=== PATIENT | female | born 1940 | race Caucasian/White ===

== ENCOUNTER → 2016-10-11 | Outpatient (CLI) | payer MEDICARE ==
--- NOTE | 2016-10-11 16:59 | CONS ---
DATE OF CONSULTATION: 10/11/2016 This patient is a 76-year-old lady who has been evaluated in the sleep center for possible obstructive sleep apnea/hypopnea syndrome. HISTORY OF PRESENT ILLNESS/SLEEP-WAKE EVALUATION: Patient had a sleep study done in a different state about 20 years ago. At that time the results were borderline. She was not recommended to use CPAP equipment at that time. At present her sleep schedule is from 10 or 11 p.m. until 7 or 8 a.m. Sometimes she has problems falling asleep. Very seldom does she watch TV in her bedroom. She usually sleeps on the side position with snoring, awakenings from sleep with dry mouth and sweating and nocturia up to 4 times, with 4 episodes of nocturia. In the morning the patient wakes up tired and has problems with memory, irritability, claustrophobia. [place] Sleepiness Scale has increased to 10. Past medical history is positive for: 1. Hypertension. 2. Hypothyroidism. 3. GI bleed with iron deficiency anemia secondary to bleeding. 4. Diabetes mellitus. 5. Allergies. 6. Asthma. 7. Left breast carcinoma. PAST SURGICAL HISTORY: 1. Appendectomy. 2. Cholecystectomy. 3. Partial hysterectomy. 4. Right knee meniscal surgery. 5. Bilateral cataract surgery. 6. Left breast lumpectomy following radiation and chemotherapy. MEDICATIONS: 1. Losartan. 2. Sertraline. 3. Omeprazole. 4. Levothyroxine. 5. Iron supplement. 6. B12. 7. Cartia. 8. Metformin. 9. Troglitazone. 10. Oxybutynin. 11. Nitrostat. 12. Vitamins. 13. Montelukast. SOCIAL HISTORY: Positive for smoking in the past; quit in 1997. Alcohol consumption very seldom. FAMILY HISTORY: Hypertension, hyperlipidemia, asthma, sinus headaches, bronchitis, emphysema, snoring, cancer, acid reflux, ulcers, diabetes. REVIEW OF SYSTEMS: Multiple awakenings from sleep. Sleepiness during the day. Patient takes naps every day around 2 p.m. No fevers. No double vision. No recent chest pain. No shortness of breath. No abdominal pain. No bleeding episodes. No blood in urine. No seizure episodes. PHYSICAL EXAMINATION: GENERAL: A pleasant 76-year-old lady without distress. VITAL SIGNS: BP 116/82, HR 66, RR 16. Height 5 feet 3 inches. Weight 214. BMI 37.9. Neck 15 inches in circumference. Temperature 97.8. Oxygen saturation at room air 96%. HEENT: PERRLA, EOMI. Evaluation of oropharynx showed tongue protrudes midline; extremely low position of soft palate. Mallampati IV. Conjunctivae slightly pale. NECK: Supple. No JVD. Thyroid is not palpable. LUNGS: Clear to percussion and to auscultation. Good air exchange. No wheezing or rhonchi. HEART: S1, S2 regular. No murmurs, gallops or rubs. ABDOMEN: Obese. EXTREMITIES: No clubbing or cyanosis. LOCKSMITH HELPER: Awake, alert, and oriented x3. Cranial nerves 2 to 7 intact. There is no fasciculation or atrophy noted. No focal deficits observed. IMPRESSION: 1. Snoring, multiple awakenings from sleep with nocturia, extremely low position of soft palate, Mallampati IV, obesity, sleepiness; obstructive sleep apnea/hypopnea syndrome. 2. Obesity; body mass index 37.9. 3. Hypertension. 4. Depression. 5. Hypothyroidism. 6. Acid reflux. 7. History of gastrointestinal bleed. 8. History of iron deficiency anemia secondary to bleed, status post several blood transfusions. 9. Diabetes mellitus. 10. Allergies. 11. History of asthma. 12. History of episodes of cardiac arrhythmia several times with increasing heart rate. Patient is not aware of exactly what type of cardiac arrhythmia she has. 13. History of left breast carcinoma, status post lumpectomy, radiation therapy and chemotherapy. 14. Status post bilateral cataract surgery. 15. Status post appendectomy. 16. Status post cholecystectomy. 17. Status post partial hysterectomy. 18. Status post right knee surgery for meniscal problems. PLAN: 1. Polysomnography for evaluation of patient's breathing during sleep. 2. CPAP/BiPAP titration if sleep study confirms obstructive sleep apnea-hypopnea syndrome. 3. Preferable position during sleep on the side. 4. No driving if patient feels any sleepiness. Patient is aware of civil and criminal liability for unsafe driving. 5. I will see patient for follow-up visit to explain results of the testing and following plan. Thank you very much for referring this patient for consultation. Sincerely, Eduardo Duong MD, PhD, FAASM. Diplomat of [place] [employer], Sleep Medicine Board by [place] [employer] [place] [employer] [facility] [place]
== END | disposition home or self-care (01) ==
LOC: SLEEP 10:27
PROVIDERS: ATTEND Internal Medicine
DX: G47.33 Obstructive sleep apnea (adult) (pediatric) (principal); Z79.899 Other long term (current) drug therapy; Z87.891 Personal history of nicotine dependence; E66.9 Obesity, unspecified; Z68.37 Body mass index [BMI] 37.0-37.9, adult; I10 Essential (primary) hypertension; F32.9 Major depressive disorder, single episode, unspecified; E03.9 Hypothyroidism, unspecified; K21.9 Gastro-esophageal reflux disease without esophagitis; E11.9 Type 2 diabetes mellitus without complications; Z91.09 Other allergy status, other than to drugs and biological substances; I49.9 Cardiac arrhythmia, unspecified; J45.909 Unspecified asthma, uncomplicated; D50.0 Iron deficiency anemia secondary to blood loss (chronic); Z87.898 Personal history of other specified conditions; Z85.3 Personal history of malignant neoplasm of breast; Z98.890 Other specified postprocedural states
CPT/HCPCS: 99211

== ENCOUNTER 2016-10-23 22:27 | Inpatient (IN) | payer MEDICARE ==
--- NOTE | 2016-10-24 00:02 | ED ---
General Adult HPI - General Source: patient, RN notes reviewed Mode of arrival: ambulatory Limitations: no limitations <Judah Mckee - Last Filed: 10/24/16 00:52> <Everardo Loco - Last Filed: 11/01/16 09:01> - General Chief complaint: Recheck/Abnormal Lab/Rx Stated complaint: Low Hemoglobin Time Seen by Provider: 10/23/16 23:12 - History of Present Illness Initial comments: 76-year-old female presents emergency Department chief complaint of low hemoglobin. Patient states she had labwork performed by her her doctor today who told her to go to the emergency Department because her hemoglobin was low. Patient states she's had a history of this in which she required transfusion section. 2 a GI bleed. Patient has admitted to the [facility] at this time. Patient also by sick with cold-like symptoms including sinus congestion, cough and runny nose. Patient denies fever, chills. Patient states she saw Dr. Gomez last time she had GI bleed in which she had cauterization of the blood vessels. (Judah Mckee) - Related Data Home Medications Medication Instructions Recorded Confirmed Cyanocobalamin [Vitamin B-12] 1,000 mcg PO DAILY 09/06/15 10/23/16 Diltiazem Cd [Cardizem CD] 120 mg PO DAILY 09/06/15 10/23/16 Losartan Potassium [Cozaar] 75 mg PO DAILY 09/06/15 10/23/16 Nitroglycerin Sl Tabs [Nitrostat] 0.4 mg SUBLINGUAL Q5M PRN 09/06/15 10/23/16 Sertraline [Zoloft] 100 mg PO DAILY 09/06/15 10/23/16 Vit A,C & E/Lutein/Minerals 1 tab PO DAILY 09/06/15 10/23/16 [Ocuvite with Lutein Tablet] metFORMIN HCL 1,000 mg PO BID 09/06/15 10/23/16 Levothyroxine Sodium [Synthroid] 200 mcg PO DAILY 10/23/16 10/23/16 Montelukast [Singulair] 10 mg PO DAILY 10/23/16 10/23/16 Omeprazole 40 mg PO HS 10/23/16 10/23/16 Oxybutynin Chloride [Oxybutynin 10 mg PO DAILY 10/23/16 10/23/16 Chloride ER] Pioglitazone HCl [Actos] 30 mg PO DAILY 10/23/16 10/23/16 Previous Rx's Medication Instructions Recorded Ferrous Sulfate [Iron (65 MG 325 mg PO BID-W/MEALS tab 10/24/16 Elemental)] Allergies Allergy/AdvReac Type Severity Reaction Status Date / Time Penicillins Allergy Unknown Verified 10/23/16 23:24 Sulfa (Sulfonamide Allergy Rash/Hives Verified 10/23/16 23:24 Antibiotics) Review of Systems ROS Other: All systems not noted in ROS Statement are negative. <Judah Mckee - Last Filed: 10/24/16 00:52> ROS Other: All systems not noted in ROS Statement are negative. <Everardo Loco - Last Filed: 11/01/16 09:01> ROS Statement: Those systems with pertinent positive or pertinent negative responses have been documented in the HPI. Past Medical History Past Medical History: Atrial Fibrillation, Atrial Flutter, Asthma, Cancer, Diabetes Mellitus, GERD/Reflux, Hyperlipidemia, Hypertension, Thyroid Disorder Additional Past Medical History / Comment(s): ulcer, anemia, hx breast cancer History of Any Multi-Drug Resistant Organisms: None Reported Past Surgical History: Appendectomy, Breast Surgery, Cholecystectomy, Orthopedic Surgery, Tonsillectomy Additional Past Surgical History / Comment(s): Left Breast Lumpectomy and lymph nodes, rt knee arthroscopy Past Anesthesia/Blood Transfusion Reactions: No Reported Reaction Past Psychological History: Anxiety, Depression Smoking Status: Former smoker Past Alcohol Use History: None Reported Additional Past Alcohol Use History / Comment(s): quit smoking 1997, smoked for 25 yrs, 1 PPD Past Drug Use History: None Reported - Past Family History Mother Family Medical History: AFIB, Cancer Additional Family Medical History / Comment(s): Atrial Fibrillation <Judah Mckee - Last Filed: 10/24/16 00:52> - Past Family History Mother Family Medical History: AFIB, Cancer, Renal Disease Additional Family Medical History / Comment(s): Atrial Fibrillation and brain cancer. Father Family Medical History: No Reported History <Everardo Loco - Last Filed: 11/01/16 09:01> General Exam Limitations: no limitations General appearance: alert, in no apparent distress Head exam: Present: atraumatic, normocephalic, normal inspection Neck exam: Present: normal inspection, full ROM. Absent: tenderness, meningismus, lymphadenopathy Respiratory exam: Present: normal lung sounds bilaterally. Absent: respiratory distress, wheezes, rales, rhonchi, stridor Cardiovascular Exam: Present: regular rate, normal rhythm, normal heart sounds. Absent: systolic murmur, diastolic murmur, rubs, gallop, clicks GI/Abdominal exam: Present: soft, normal bowel sounds. Absent: distended, tenderness, guarding, rebound, rigid Back exam: Absent: CVA tenderness (R), CVA tenderness (L) Neurological exam: Present: alert, oriented X3, CN II-XII intact Skin exam: Present: warm, dry, intact, normal color. Absent: rash <Judah Mckee - Last Filed: 10/24/16 00:52> Medical Decision Making - Lab Data Result diagrams: 10/23/16 23:42 10/23/16 23:42 <Judah Mckee - Last Filed: 10/24/16 00:52> - Lab Data Result diagrams: 10/24/16 07:50 10/23/16 23:42 <Everardo Loco - Last Filed: 11/01/16 09:01> - Medical Decision Making I saw this patient in conjunction with the physician exceptional children teacher assistant. I performed independent history and physical exam. Agree with case management. (Everardo Loco) - Lab Data Lab Results 10/23/16 10/23/16 10/23/16 Range/Units 23:42 23:42 23:42 WBC 5.9 (3.8-10.6) k/uL RBC 3.12 L (3.80-5.40) m/uL Hgb 7.0 L* (11.4-16.0) gm/dL Hct 23.6 L (34.0-46.0) % MCV 75.5 L (80.0-100.0) fL MCH 22.6 L (25.0-35.0) pg MCHC 29.9 L (31.0-37.0) g/dL RDW 15.0 (11.5-15.5) % Plt Count 245 (150-450) k/uL Neutrophils % 65 % Lymphocytes % 19 % Monocytes % 8 % Eosinophils % 3 % Basophils % 1 % Neutrophils # 3.8 (1.3-7.7) k/uL Lymphocytes # 1.1 (1.0-4.8) k/uL Monocytes # 0.5 (0-1.0) k/uL Eosinophils # 0.2 (0-0.7) k/uL Basophils # 0.0 (0-0.2) k/uL Hypochromasia Marked Poikilocytosis Moderate Microcytosis Slight PT 10.4 (9.0-12.0) sec INR 1.0 (<1.1) APTT 22.7 (22.0-30.0) sec Sodium 137 (137-145) mmol/L Potassium 4.7 (3.5-5.1) mmol/L Chloride 101 (98-107) mmol/L Carbon Dioxide 22 (22-30) mmol/L Anion Gap 14 mmol/L BUN 19 H (7-17) mg/dL Creatinine 0.80 (0.52-1.04) mg/dL Est GFR (MDRD) Af Amer >60 (>60 ml/min/1.73 sqM) Est GFR (MDRD) Non-Af >60 (>60 ml/min/1.73 sqM) Glucose 168 H (74-99) mg/dL Calcium 9.3 (8.4-10.2) mg/dL Stool Occult Blood (Negative) Blood Type Blood Type Recheck Antibody Screen Crossmatch Spec Expiration Date 10/23/16 10/24/16 Range/Units 23:52 00:50 WBC (3.8-10.6) k/uL RBC (3.80-5.40) m/uL Hgb (11.4-16.0) gm/dL Hct (34.0-46.0) % MCV (80.0-100.0) fL MCH (25.0-35.0) pg MCHC (31.0-37.0) g/dL RDW (11.5-15.5) % Plt Count (150-450) k/uL Neutrophils % % Lymphocytes % % Monocytes % % Eosinophils % % Basophils % % Neutrophils # (1.3-7.7) k/uL Lymphocytes # (1.0-4.8) k/uL Monocytes # (0-1.0) k/uL Eosinophils # (0-0.7) k/uL Basophils # (0-0.2) k/uL Hypochromasia Poikilocytosis Microcytosis PT (9.0-12.0) sec INR (<1.1) APTT (22.0-30.0) sec Sodium (137-145) mmol/L Potassium (3.5-5.1) mmol/L Chloride (98-107) mmol/L Carbon Dioxide (22-30) mmol/L Anion Gap mmol/L BUN (7-17) mg/dL Creatinine (0.52-1.04) mg/dL Est GFR (MDRD) Af Amer (>60 ml/min/1.73 sqM) Est GFR (MDRD) Non-Af (>60 ml/min/1.73 sqM) Glucose (74-99) mg/dL Calcium (8.4-10.2) mg/dL Stool Occult Blood Negative (Negative) Blood Type O Negative Blood Type Recheck No Antibody Screen NEGATIVE Crossmatch See Detail Spec Expiration Date 10/26/2016 - 1117 Disposition <Judah Mckee - Last Filed: 10/24/16 00:52> <Everardo Loco - Last Filed: 11/01/16 09:01> Clinical Impression: Anemia, GI bleed Disposition: ADMITTED IP TO THIS [facility] Condition: Stable
[2016-10-24 00:09] LABS: Partial Thromboplastin Time 22.7 sec (22.0-30.0); Prothrombin Time 10.4 sec (9.0-12.0)
[2016-10-24 00:10] LABS: Basophils % (A) 1 %; CH 22.8; CHCM 30.2; Eosinophils # (A) 0.2 k/uL (0-0.7); Eosinophils % (A) 3 %; HCT 23.6 % (34.0-46.0); HDW 4.39; Hypochromasia Marked; Luc # (Auto) 0.23; Luc % (Auto) 4; Lymphocytes # (A) 1.1 k/uL (1.0-4.8); Lymphocytes % (A) 19 %; MCH 22.6 pg (25.0-35.0); MCHC 29.9 g/dL (31.0-37.0); MCV 75.5 fL (80.0-100.0); Mean Platelet Volume 7.3; Microcytosis Slight; Monocytes # (A) 0.5 k/uL (0-1.0); Monocytes % (A) 8 %; Neutrophils # (A) 3.8 k/uL (1.3-7.7); Neutrophils % (A) 65 %; Poikilocytosis Moderate; RBC 3.12 m/uL (3.80-5.40); WBC 5.9 k/uL (3.8-10.6); WBC (Perox) 5.92
[2016-10-24 00:11] LABS: Anion Gap 14 mmol/L; Blood Urea Nitrogen 19 mg/dL (7-17); Calcium 9.3 mg/dL (8.4-10.2); Carbon Dioxide 22 mmol/L (22-30); Chloride 101 mmol/L (98-107); Glucose 168 mg/dL (74-99); Non-African American GFR(MDRD) >60 (>60 ml/min/1.73 sqM); Potassium 4.7 mmol/L (3.5-5.1); Sodium 137 mmol/L (137-145)
[2016-10-24] MEDS ORDERED: NALOXONE 0.4 MG/ML 1 ML VIAL IV PRN (00:53)
[2016-10-24] MEDS ORDERED: ONDANSETRON 4 MG/2 ML VIAL IVP PRN (00:53)
[2016-10-24] MEDS ORDERED: LORazepam 2 MG/ML SYRINGE IV PRN (00:53)
[2016-10-24] MEDS ORDERED: PANTOPRAZOLE 40 MG/10 ML VIAL IVP ONE (00:55)
[2016-10-24] MEDS: SODIUM CHLORIDE 0.9% 1,000 ML IV SCH ×2 (01:42→16:09)
[2016-10-24 08:10] LABS: Anisocytosis Slight; Basophils % (A) 1 %; CH 23.9; CHCM 29.3; Eosinophils # (A) 0.1 k/uL (0-0.7); Eosinophils % (A) 3 %; HCT 25.5 % (34.0-46.0); HDW 4.27; HGB 7.6 gm/dL (11.4-16.0); Hypochromasia Marked; Luc # (Auto) 0.16; Luc % (Auto) 4; Lymphocytes # (A) 0.8 k/uL (1.0-4.8); Lymphocytes % (A) 19 %; MCH 24.3 pg (25.0-35.0); MCHC 29.8 g/dL (31.0-37.0); Monocytes # (A) 0.3 k/uL (0-1.0); Monocytes % (A) 7 %; Neutrophils % (A) 67 %; Poikilocytosis Moderate; RBC 3.13 m/uL (3.80-5.40); RDW 17.3 % (11.5-15.5); WBC 4.5 k/uL (3.8-10.6)
[2016-10-24 08:12] LABS: MCV 81.4 fL (80.0-100.0)
[2016-10-24] MEDS ORDERED: PANTOPRAZOLE 40 MG/10 ML VIAL IVP SCH (09:00)
[2016-10-24] MEDS ORDERED: FERROUS SULFATE 325 MG TAB PO SCH (10:30)
--- NOTE | 2016-10-24 10:32 | P.CONS ---
History of Present Illness - Reason for Consult Consult date: 10/24/16 anemia Requesting physician: Kenny Garza - History of Present Illness 76-year-old female patient Dr. Ríos with a past history of iron deficiency anemia, GI bleed secondary to peptic ulcer disease and small bowel AVM, asthma, atrial fibrillation, breast carcinoma, hyperlipidemia, hypertension, hypothyroidism, anxiety, depression. Patient was admitted with symptomatic anemia with shortness of breath. She was evaluated by her PCP for cold-like symptoms CBC indicated low hemoglobin. Admission 11 7.0. MCV 75. Platelet 245. BUN 19. Creatinine 0.8. She received 1 unit of blood and current hemoglobin is 7.6. Hemoccult stool negative. Denies epigastric/ abdominal pain. Denies overt symptoms of hematemesis, hematochezia, or melena. No fever or chills. She was taking iron supplementation twice daily but changed to daily dosing about 3 months ago. Hemoglobin December 2015 was 12.7. She has had extensive endoscopic workup for anemia in the past. She underwent EGD evaluation in September 2015 without evidence of peptic ulcer disease or bleeding. She had EGD colonoscopy in October 2013 with findings of small duodenal ulceration followed by repeat upper and lower endoscopy in December [address] Boateng with gastritis and diverticulosis. Patient reports that she saw Dr. Gomez within the last few years with repeat EGD with no evidence of peptic ulcer disease followed by small bowel capsule study that indicated a small bowel bleed followed by enteroscopy and cautery of small bowel AVM blood vessel. Small bowel capsule study and enteroscopy report is not available at time of this dictation. Denies weight loss or usage of aspirin or NSAIDs. Review of Systems Constitutional: Denies fever, chills, sweats, weight gain, or loss. HEENT: Negative for migraines, blurred vision or loss, earaches, drainage, tinnitus, oral mucosal lesions, dysphagia, or odynophagia. CARDIAC: Atrial flutter. Hyperlipidemia. Hypertension.. RESPIRATORY: Asthma. Negative for shortness of breath, hemoptysis, cough, or sputum production. GI: See HPI for pertinent findings. : Negative for hematuria, urgency, frequency, polyuria, or dysuria. GYNc: Breast carcinoma. Negative vaginal discharge. MUSCULOSKELETAL: Negative for muscle aches, swelling, arthritis, and arthralgias. NEUROLOGIC: Negative for stroke or TIA. ENDOCRINE: Hypothyroidism. Diabetes mellitus. SKIN: Negative for rash or itching. PSYCHIATRIC: Negative history for depression and anxiety All systems: negative (See HPI) Past Medical History Past Medical History: Atrial Fibrillation, Atrial Flutter, Asthma, Cancer, Diabetes Mellitus, GERD/Reflux, GI Bleed, Hyperlipidemia, Hypertension, Thyroid Disorder Additional Past Medical History / Comment(s): Current URI-was to start ABX but has not yet, lower GI bleeds, blood loss anemia, iron deficiency anemia, gastric ulcer, diverticulosis, NIDDM type II, hx L breast cancer with surgery/ chemo/radiation, hypothryroid. History of Any Multi-Drug Resistant Organisms: None Reported Past Surgical History: Appendectomy, Breast Surgery, Cholecystectomy, Orthopedic Surgery, Tonsillectomy Additional Past Surgical History / Comment(s): Left Breast Lumpectomy and lymph nodes, rt knee arthroscopy, EGDs/colonoscopies, capsule endoscopy, cauterization small bleeds in intestine per pt, bilateral cataract removals with lens implants. Past Anesthesia/Blood Transfusion Reactions: No Reported Reaction Additional Past Anesthesia/Blood Transfusion Reaction / Comm: Pt has received blood without reaction. She has clausterphobia. Past Psychological History: Anxiety, Depression Additional Psychological History / Comment(s): Pt states her depression has improved-she suffered depression for awhile after her mother's last year. She resides with a friend. There is a dog in the home. She uses no assistive device. She drives some and her friend also drives her to appts. Smoking Status: Former smoker Past Alcohol Use History: Occasional Additional Past Alcohol Use History / Comment(s): Pt started smoking in 1957 and quit in 1997. Past Drug Use History: None Reported - Past Family History Father Family Medical History: No Reported History Mother Family Medical History: AFIB, Cancer, Renal Disease Additional Family Medical History / Comment(s): Atrial Fibrillation and brain cancer. Medications and Allergies Home Medications Medication Instructions Recorded Confirmed Type Cyanocobalamin [Vitamin B-12] 1,000 mcg PO DAILY 09/06/15 10/23/16 History Diltiazem Cd [Cardizem Cd] 120 mg PO DAILY 09/06/15 10/23/16 History Ferrous Sulfate [Feosol] 325 mg PO DAILY 09/06/15 10/23/16 History Losartan Potassium [Cozaar] 75 mg PO DAILY 09/06/15 10/23/16 History Nitroglycerin Sl Tabs [Nitrostat] 0.4 mg SUBLINGUAL Q5M PRN 09/06/15 10/23/16 History Sertraline [Zoloft] 100 mg PO DAILY 09/06/15 10/23/16 History Vit A,C & E/Lutein/Minerals 1 tab PO DAILY 09/06/15 10/23/16 History [Ocuvite with Lutein Tablet] metFORMIN HCL 1,000 mg PO BID 09/06/15 10/23/16 History Levothyroxine Sodium [Synthroid] 200 mcg PO DAILY 10/23/16 10/23/16 History Montelukast [Singulair] 10 mg PO DAILY 10/23/16 10/23/16 History Omeprazole 40 mg PO HS 10/23/16 10/23/16 History Oxybutynin Chloride [Oxybutynin 10 mg PO DAILY 10/23/16 10/23/16 History Chloride ER] Pioglitazone HCl [Actos] 30 mg PO DAILY 10/23/16 10/23/16 History Allergies Allergy/AdvReac Type Severity Reaction Status Date / Time Penicillins Allergy Unknown Verified 10/23/16 23:24 Sulfa (Sulfonamide Allergy Rash/Hives Verified 10/23/16 23:24 Antibiotics) Physical Exam Vitals: Vital Signs Temp Pulse Resp BP Pulse Ox 10/24/16 08:47 98.2 F 61 14 141/63 97 10/24/16 07:15 98.2 F 61 14 141/63 97 10/24/16 04:35 97.1 F L 64 14 139/63 97 10/24/16 04:34 97.1 F L 64 14 139/63 14 L 10/24/16 04:17 97 F L 62 14 148/67 94 L 10/24/16 03:47 97.6 F 68 14 130/68 94 L 10/24/16 03:37 97.6 F 61 14 124/58 95 10/24/16 02:16 65 16 128/62 96 Intake and Output 10/23/16 10/24/16 10/24/16 22:59 06:59 14:59 Intake Total 310 Balance 310 Intake: Blood Product 310 Rc As-1 Unit 310 [id number] General appearance: The patient is alert, oriented, in no acute distress. HET: Head is normocephalic and atraumatic. Pupils are equal and reactive. Oropharynx is clear without lesions. Neck: Supple without lymphadenopathy. Trachea midline. Heart: S1 S2. Regular rate and rhythm. Lungs: No crackles or wheezes are heard. Abdomen: Soft, nontender, nondistended with bowel sounds. No peritoneal signs. No palpable organomegaly or masses. Extremities: Normal skin color and turgor. No cyanosis, rash, ulceration, clubbing, or edema. Radial and pedal pulses are 2/4 bilaterally. Neurological: No focal deficits. Strength and sensation are grossly intact. Results CBC & Chem 7: 10/24/16 07:50 10/23/16 23:42 Labs: Abnormal Lab Results - Last 24 Hours (Table) 10/24/16 Range/Units 07:50 RBC 3.13 L (3.80-5.40) m/uL Hgb 7.6 L (11.4-16.0) gm/dL Hct 25.5 L (34.0-46.0) % MCH 24.3 L (25.0-35.0) pg MCHC 29.8 L (31.0-37.0) g/dL RDW 17.3 H (11.5-15.5) % Lymphocytes # 0.8 L (1.0-4.8) k/uL Assessment and Plan (1) Iron (Fe) deficiency anemia Narrative/Plan: 76-year-old female with a history of chronic iron deficiency anemia followed closely by hematology with extensive endoscopic workup in the past including multiple EGDs colonoscopy and small bowel capsule endoscopy. She has a history of peptic ulcer disease Y 14 and reported small bowel AVM bleeding that required cautery. Considering patient is not actively bleeding and her Hemoccult testing is negative would advise not repeating endoscopic workup at this time. Iron supplementation was decreased from twice daily dosing to once daily over the last 3-6 months. Status: Chronic Plan: 1. Ferrous sulfate 325 mg twice daily. 2. Follow-up with hematology in 1 week for reevaluation will defer to their service if repeat endoscopy is needed for anemia management. Follow up with GI office as needed. 3. Case was discussed with Dr. Garza. Discharge per medicine. Thank you for this kind referral and the opportunity to participate in the care of your patient. This consultation was discussed with Dr. Valentine. The impression and plan of care have been directed as dictated.
[2016-10-24 10:53] VITALS: RESP 16
[2016-10-24 12:06] LABS: Glucose,Whole Blood 157 mg/dL (75-99)
[2016-10-24 12:26] LABS: % Iron Saturation 4.5 % (20-50)
[2016-10-24 14:30] VITALS: TEMP 97.8
[2016-10-24] MEDS ORDERED: FUROSEMIDE 10 MG/ML 2 ML VIAL IV ONE (15:00)
[2016-10-24 16:38] VITALS: BP 120/65; PULSE 65
--- NOTE | 2016-10-24 18:23 | HP ---
DATE OF ADMISSION: 10/24/2016 CHIEF COMPLAINT: Tiredness, weakness, shortness of breath and anemia. HISTORY OF PRESENT ILLNESS: This 76-year-old woman with a past medical history of multiple medical problems, including atrial fibrillation, atrial flutter, asthma, diabetes mellitus, type 2, GERD, history of GI bleed, hypertension, hyperlipidemia, history of appendectomy, history of breast surgery, history of anxiety, depression, being followed by Dr. Downey in the outpatient setting, has a long-standing history of anemia. The patient had extensive workup, endoscopies, and the patient was noted to have small duodenal ulceration, but subsequently the patient apparently had upper enteroscopy and cauterization of a small bowel AVM. Currently the patient is complaining of tiredness and weakness and the patient's hemoglobin was noted to be 7. The patient had one unit of transfusion and was admitted for further evaluation and treatment. There is no history of any fever, rigor, or chills. No history of any headache, loss of consciousness, seizures. PAST MEDICAL HISTORY: 1. History of atrial fibrillation/flutter. 2. History of asthma. 3. History of diabetes mellitus. 4. History of GERD. 5. GI bleed. 6. Hypertension. 7. Hyperlipidemia. 8. Hypothyroidism. 9. History of cholecystectomy. 10. History of DJD. 11. History of anxiety, depression. Medications prior to admission include: 1. Metformin 1000 mg p.o. b.i.d. 2. Ocuvite 1 tablet p.o. daily. 3. Zoloft 100 mg p.o. daily. 4. Actos 30 mg p.o. daily. 5. Oxybutynin 10 mg p.o. daily. 6. Omeprazole 40 mg at bedtime. 7. Nitrostat 0.4 sublingually p.r.n. 8. Singulair 10 mg p.o. daily. 9. Cozaar 75 mg p.o. daily. 10. Synthroid 200 mcg p.o. daily. 11. Cardizem CD 120 mg p.o. daily. 12. Vitamin B12 1000 mg p.o. daily. 13. Iron sulfate 65 mg p.o. daily. ALLERGIES: PENICILLIN and SULFA. FAMILY HISTORY: History of atrial fibrillation, cancer, renal disease, brain cancer in the family. SOCIAL HISTORY: Previous history of smoking. Occasional alcohol intake. REVIEW OF SYSTEMS: ENT: No diminished hearing. No diminished vision. CARDIOVASCULAR: As mentioned earlier. RESPIRATORY SYSTEM: As mentioned earlier. GI: No nausea, vomiting. : No dysuria. NERVOUS SYSTEM: No numbness, weakness. ALLERGY/IMMUNOLOGY: No asthma or hayfever. MUSCULOSKELETAL: As mentioned earlier. HEMATOLOGY/ONCOLOGY: As mentioned earlier. ENDOCRINE: Diabetes, hypothyroidism. CONSTITUTIONAL: As mentioned earlier. DERMATOLOGY: Negative. RHEUMATOLOGY: Negative. PSYCHIATRY: As mentioned earlier. PHYSICAL EXAMINATION: Patient is alert and oriented x3. Pulse 66, blood pressure 130/59, respiratory rate 16, temperature 97.6, pulse ox 98% on room air. HEENT: Conjunctivae pale. Oral mucosa is pale. NECK: No jugular venous distention. No carotid bruit. No lymph node enlargement. CARDIOVASCULAR SYSTEM: S1, S2 muffled. No S3. No S4. RESPIRATORY SYSTEM: Breath sounds diminished at the bases. Bilateral scattered rhonchi and a few crackles. ABDOMEN: Soft, obese, nontender. No mass palpable. No hepatosplenomegaly. LEGS: No edema. No swelling. NERVOUS SYSTEM: Higher functions as mentioned earlier. Moves all 4 limbs. No focal motor or sensory deficit. LYMPHATICS: No lymph node palpable in neck, axillae or groin. SKIN: No ulcer, rash, bleeding. LABS: WBC 5.9, hemoglobin 7, MCV 75.6. Other labs are noted. ASSESSMENT 1. Acute blood loss anemia with acute gastrointestinal bleed possibly. 2. 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 3. Atrial fibrillation. 4. History of atrial flutter. 5. History of asthma. 6. History of diabetes mellitus, type 2. 7. History of gastroesophageal reflux disease. 8. History of gastrointestinal bleed. 9. History of hypertension. 10. History of hyperlipidemia. 11. History of iron deficiency anemia. 12. History of gastric duodenal ulcer. 13. History of diverticulosis. 14. History of diabetes mellitus, type 2. 15. History of left breast cancer. 16. History of degenerative joint disease. 17. History of cholecystectomy. 18. Anxiety, depression not otherwise specified. 19. Remote history nicotine dependence. 20. Obesity with body mass index of 36.6. 21. FULL CODE. RECOMMENDATIONS AND DISCUSSION: In this 76-year-old woman who presented with multiple complex medical issues, we will monitor the patient closely, continue the current medication, continue with symptomatic treatment. I would recommend one more unit of transfusion because of symptomatic anemia Lasix. Continue the rest of the medications. Discussed with Gastroenterology at length (Zohra). The dose of iron is also being increased. Also recommend close followup with Dr. Downey and Dr. Ríos in the outpatient setting. Will treat the patient empirically medically at this time. Continue to monitor. Prognosis guarded. Discussed with the patient, who understands and agrees. Home medications will be continued. Hold off anticoagulants and any antiplatelet agents for now. A copy of this dictation is being forwarded to Dr. Downey, who is the primary physician. ESA
--- NOTE | 2016-10-25 10:28 | DS ---
DATE OF ADMISSION: 10/24/2016 DATE OF DISCHARGE: 10/24/2016 FINAL DIAGNOSES: 1. Acute on chronic gastrointestinal bleed with acute blood loss anemia, status post transfusion. 2. History of small bowel AVM and cauterization. 3. History of atrial fibrillation flutter. 4. History of asthma. 6. History of breast cancer left. 7. History of diabetes mellitus type 2. 8. History of gastroesophageal reflux disease. 9. History of gastrointestinal bleed. 10. Hypertension. 11. Hyperlipidemia. 12. History of blood loss anemia. 13. History of iron deficiency anemia. 14. History of gastric duodenal ulcer. 15. History of diverticulosis. 16. History of appendectomy. 17. History of degenerative joint disease. 18. History of anxiety, depression. 19. Remote history of nicotine dependence. 20. Obesity with a body mass index of 36.6. 21. FULL CODE. DISCHARGE DISPOSITION: The patient will be discharged in stable condition with guarded prognosis. HISTORY OF PRESENT ILLNESS: This 76-year-old woman with a past medical history of multiple medical problems admitted with acute on chronic anemia and features of GI blood loss and hemoglobin of 7. Transfused. Patient improved significantly. Recommended outpatient followup. On exam, vitals are stable. CARDIOVASCULAR: S1 and S2 muffled. ABDOMEN: Soft. NERVOUS SYSTEM: No focal deficits. DISCHARGE ADVICE: 1. Diet is cardiac. 2. Activity limited until followup. 3. Follow up with Dr. Downey in 2 to 3 days. 4. Follow up with Dr. Ríos as advised. 5. Outpatient followup CBC, BMP. Medications will be: 1. Vitamin B12, 1000 mcg p.o. daily. 2. Cardizem CD 120 mg p.o. daily. 3. Iron 325 mg p.o. b.i.d. 4. Synthroid 200 mcg p.o. daily. 5. Cozaar 75 mg p.o. daily. 6. Singulair 10 mg p.o. daily. 7. Nitrostat 0.4 sublingual p.r.n. 8. Omeprazole 40 mg q.h.s. 9. Oxybutynin 10 mg p.o. daily. 10. Actos 30 mg p.o. daily. 11. Zoloft 100 mg p.o. daily. 12. Vitamin A, C, E, lutein, minerals 1 p.o. daily. 13. Metformin 1000 mg p.o. b.i.d. MTDD
== END 2016-10-24 16:30 | disposition home or self-care (01) | DRG 812 ==
LOC: EC 22:27 → 4MS4W 10-24 01:22 → 5ONC 10-24 07:44
PROVIDERS: ADMIT Hospitalist; ATTEND Hospitalist
PROC: 30230N1 Transfusion of Nonautologous Red Blood Cells into Peripheral Vein, Open Approach (ICD-10-PCS; principal; 2016-10-24)
DX: D62 Acute posthemorrhagic anemia (principal); I48.92 Unspecified atrial flutter; K92.2 Gastrointestinal hemorrhage, unspecified; E11.9 Type 2 diabetes mellitus without complications; I48.91 Unspecified atrial fibrillation; D50.9 Iron deficiency anemia, unspecified; J45.909 Unspecified asthma, uncomplicated; K21.9 Gastro-esophageal reflux disease without esophagitis; I10 Essential (primary) hypertension; E03.9 Hypothyroidism, unspecified; E78.5 Hyperlipidemia, unspecified; Q27.33 Arteriovenous malformation of digestive system vessel; K57.90 Diverticulosis of intestine, part unspecified, without perforation or abscess without bleeding; E66.9 Obesity, unspecified; M19.90 Unspecified osteoarthritis, unspecified site; F32.9 Major depressive disorder, single episode, unspecified; Z96.1 Presence of intraocular lens; Z98.41 Cataract extraction status, right eye; Z98.42 Cataract extraction status, left eye; Z68.36 Body mass index [BMI] 36.0-36.9, adult; Z90.49 Acquired absence of other specified parts of digestive tract; Z85.3 Personal history of malignant neoplasm of breast; Z87.891 Personal history of nicotine dependence; Z87.11 Personal history of peptic ulcer disease; Z79.84 Long term (current) use of oral hypoglycemic drugs; Z79.899 Other long term (current) drug therapy
CPT/HCPCS: 36415; 36430; 80048; 82272; 82728; 83540; 83550; 85025; 85610; 85730; 86850; 86900; 86901; 86920; 96361; 96374; 99285

== ENCOUNTER → 2017-03-28 | Outpatient (CLI) | payer MEDICARE ==
--- NOTE | 2017-03-28 13:25 | PN ---
DATE OF SERVICE: 03/28/2017 A 76-year-old lady had been followed in sleep center for treatment of obstructive sleep apnea hypopnea syndrome. I discussed results of sleep study with the patient and family in detail. The patient had polysomnogram which showed apnea-hypopnea index 12.1 with oxygen desaturation to 82% then patient had CPAP titration, recommended pressure is 10 cm of water. Patient started to use her CPAP equipment. She feels better with CPAP. She sleeps better and feels more energy during the day. [place] sleepiness scale today is 6. Patient is using full face mask. No significant problem with the mask, although sometimes she opens mouth and has drooling. I checked her CPAP unit. CPAP pressure is 10 cm of water, ramp is 20 minutes. Usage 24 out of 30 nights for more than 4 hours. Leak is 8 L per minute, which is acceptable. Apnea-hypopnea index 3.0 for the last month, which is normal range. MEDICATIONS: Losartan, sertraline, omeprazole, levothyroxine, iron supplement, B12, metformin, ( ), oxybutynin, Nitrostat, montelukast, vitamins. PHYSICAL EXAMINATION: During physical exam, the patient in no distress. VITAL SIGNS: BP 121/63, HR 62, RR 16, weight 220, temp 97.3, oxygen saturation in room air 92%. HEENT: PERRLA. EOMI. Oropharynx extremely low position of soft palate. NECK: Supple. No JVD. Thyroid is not palpable. LUNGS: Clear to percussion and to auscultation. Good air exchange. No wheezing or rhonchi. HEART: S1, S2, regular. No murmurs, gallops or rubs. ABDOMEN: Soft and nontender. Bowel sounds are present. No organomegaly appreciated. EXTREMITIES: No clubbing or cyanosis. DEAN OF WOMEN: Awake, alert and oriented x3. Cranial nerves 2 to 7 intact. There is no fasciculation or atrophy noted. No focal deficits observed. IMPRESSION: 1. Obstructive sleep apnea hypopnea syndrome. Patient demonstrated good compliance with treatment benefiting from treatment. Sometimes drooling from the mouth. 2. Obesity. 3. Hypertension. 4. Depression. 5. Acid reflux. 6. History of gastrointestinal bleed. 7. Diabetes mellitus. 8. History of asthma. 9. Allergies. 10. History of cardiac arrhythmia. 11. Status post cataract surgery. 12. Status post partial hysterectomy. 13. Status post right knee surgery. PLAN: 1. Continue treatment with CPAP every night for the whole night. 2. Prescription for chin strap. 3. Watching and losing weight. 4. Sleep hygiene with regular time in bed for at least 8 hours. 5. No driving if feeling any sleepiness. 6. Follow-up visit in 10 months or earlier if patient has any problem with CPAP therapy. 7. We will continue supplies for CPAP therapy including mask, tubes, filters. Thank you very much for allowing me to participate in the management of your patient. Sincerely, Eduardo Duong MD, PhD, FAASM Diplomat of [place] [employer] Sleep Medicine Board by [employer] Supervisor of [facility] [place] [facility]
== END | disposition home or self-care (01) ==
LOC: SLEEP 11:24
PROVIDERS: ATTEND Internal Medicine
DX: G47.33 Obstructive sleep apnea (adult) (pediatric) (principal); E66.9 Obesity, unspecified; I10 Essential (primary) hypertension; F32.9 Major depressive disorder, single episode, unspecified; K21.9 Gastro-esophageal reflux disease without esophagitis; E11.9 Type 2 diabetes mellitus without complications; T78.40XA Allergy, unspecified, initial encounter

== ENCOUNTER 2017-06-13 12:38 | Inpatient (IN) | payer MEDICARE ==
[2017-06-13] MEDS ORDERED: RX INFO: IV CONTRAST WAS GIVEN 1 EACH MISC MISCELLANE PRN (13:39)
--- NOTE | 2017-06-13 13:45 | ED ---
General Adult HPI - General Chief complaint: Shortness of Breath Stated complaint: Abnormal Labs Time Seen by Provider: 06/13/17 12:45 Source: patient, RN notes reviewed Mode of arrival: wheelchair Limitations: no limitations - History of Present Illness Initial comments: This is a 76-year-old female who presents emergency department with past medical history significant for anemia. Patient states over the last 2 weeks she's had difficulty breathing. Patient states the difficulty breathing has gotten progressively worse over the last 2 weeks. Patient states normally she has black and bloody stools when she has anemia but she has not noted any of that at this time. Patient states walking or exerting herself in anyway makes the difficulty breathing worse. Patient denies any recent fever chills or cough. Patient denies any chest pain or palpitations. Patient denies any abdominal pain patient denies nausea vomiting diarrhea. Eyes any headache patient denies numbness weakness. Patient denies lightheadedness dizziness or near syncopal episode. Patient states she has a little bit increased swelling in both legs. - Related Data Home Medications Medication Instructions Recorded Confirmed Cyanocobalamin [Vitamin B-12] 1,000 mcg PO DAILY 09/06/15 06/13/17 Diltiazem Cd [Cardizem CD] 120 mg PO DAILY 09/06/15 06/13/17 Losartan Potassium [Cozaar] 75 mg PO DAILY 09/06/15 06/13/17 Nitroglycerin Sl Tabs [Nitrostat] 0.4 mg SUBLINGUAL Q5M PRN 09/06/15 06/13/17 Sertraline [Zoloft] 100 mg PO DAILY 09/06/15 06/13/17 Vits A,C,E/Lutein/Minerals 1 tab PO DAILY 09/06/15 06/13/17 [Ocuvite with Lutein Tablet] metFORMIN HCL 1,000 mg PO BID 09/06/15 06/13/17 Levothyroxine Sodium [Synthroid] 200 mcg PO DAILY 10/23/16 06/13/17 Montelukast [Singulair] 10 mg PO DAILY 10/23/16 06/13/17 Omeprazole 40 mg PO HS 10/23/16 06/13/17 Pioglitazone HCl [Actos] 30 mg PO DAILY 10/23/16 06/13/17 Albuterol Inhaler [Ventolin Hfa 2 puff INHALATION RT-Q4H PRN 06/13/17 06/13/17 Inhaler] Ferrous Sulfate [Iron (65 MG 650 mg PO DAILY 06/13/17 06/13/17 Elemental)] Fluticasone Nasal [place] [Flonase 1 spray EA NOSTRIL DAILY 06/13/17 06/13/17 Nasal [place]] Fluticasone Propionate [Flovent 2 puff INHALATION RT-BID 06/13/17 06/13/17 Hfa 220MCG] Allergies Allergy/AdvReac Type Severity Reaction Status Date / Time Penicillins Allergy Unknown Verified 06/13/17 12:52 Sulfa (Sulfonamide Allergy Rash/Hives Verified 06/13/17 12:52 Antibiotics) Review of Systems ROS Statement: Those systems with pertinent positive or pertinent negative responses have been documented in the HPI. ROS Other: All systems not noted in ROS Statement are negative. Past Medical History Past Medical History: Atrial Fibrillation, Atrial Flutter, Asthma, Cancer, Diabetes Mellitus, GERD/Reflux, GI Bleed, Hyperlipidemia, Hypertension, Thyroid Disorder Additional Past Medical History / Comment(s): Current URI-was to start ABX but has not yet, lower GI bleeds, blood loss anemia, iron deficiency anemia, gastric ulcer, diverticulosis, NIDDM type II, hx L breast cancer with surgery/ chemo/radiation, hypothryroid. History of Any Multi-Drug Resistant Organisms: None Reported Past Surgical History: Appendectomy, Breast Surgery, Cholecystectomy, Orthopedic Surgery, Tonsillectomy Additional Past Surgical History / Comment(s): Left Breast Lumpectomy and lymph nodes, rt knee arthroscopy, EGDs/colonoscopies, capsule endoscopy, cauterization small bleeds in intestine per pt, bilateral cataract removals with lens implants. Past Anesthesia/Blood Transfusion Reactions: No Reported Reaction Additional Past Anesthesia/Blood Transfusion Reaction / Comment(s): Pt has received blood without reaction. She has clausterphobia. Past Psychological History: Anxiety, Depression Smoking Status: Former smoker Past Alcohol Use History: Occasional Past Drug Use History: None Reported - Past Family History Father Family Medical History: No Reported History Mother Family Medical History: AFIB, Cancer, Renal Disease Additional Family Medical History / Comment(s): Atrial Fibrillation and brain cancer. General Exam - General Exam Comments Initial Comments: GENERAL: Patient is well-developed and well-nourished. Patient is nontoxic and well- hydrated and is in mild distress. ENT: Neck is soft and supple. No significant lymphadenopathy is noted. Oropharynx is clear. Moist mucous membranes. Neck has full range of motion without eliciting any pain. EYES: The sclera were anicteric and conjunctiva were pink and moist. Extraocular movements were intact and pupils were equal round and reactive to light. Eyelids were unremarkable. PULMONARY: Unlabored respirations. Good breath sounds bilaterally. No audible rales rhonchi or wheezing was noted. CARDIOVASCULAR: There is a regular rate and rhythm without any murmurs gallops or rubs. ABDOMEN: Soft and nontender with normal bowel sounds. No palpable organomegaly was noted. There is no palpable pulsatile mass. SKIN: Skin is clear with no lesions or rashes and otherwise unremarkable. NEUROLOGIC: Patient is alert and oriented x3. Cranial nerves II through XII are grossly intact. Motor and sensory are also intact. Normal speech, volume and content. Symmetrical smile. MUSCULOSKELETAL: Normal extremities with adequate strength and full range of motion. 1+ edema bilaterally LYMPHATICS: No significant lymphadenopathy is noted PSYCHIATRIC: Normal psychiatric evaluation. Normal interpersonal interactions appears functionally intact in deals appropriately with others. No signs of depression. No signs of anxiety. Limitations: no limitations Course Vital Signs 06/13/17 06/13/17 06/13/17 12:41 13:27 15:22 Temperature 97.8 F Pulse Rate 65 65 61 Respiratory 26 H 18 20 Rate Blood Pressure 133/60 132/63 126/86 O2 Sat by Pulse 96 99 100 Oximetry 06/13/17 15:35 Temperature Pulse Rate Respiratory 20 Rate Blood Pressure O2 Sat by Pulse Oximetry Medical Decision Making - Medical Decision Making EKG shows normal sinus rhythm at 67 bpm VT interval is 150 QRS is 102 QT interval 424 QTC is 448. Patient's EKG shows no ST segment elevation or depression or T-wave abdomen is noted Patient informed me that her hemoglobin was in the 11 range in April. Patient' s hemoglobin currently 7.5 - Lab Data Result diagrams: 06/13/17 14:52 06/13/17 14:52 Lab Results 06/13/17 06/13/17 06/13/17 Range/Units 14:52 14:52 14:52 WBC 6.1 (3.8-10.6) k/uL RBC 2.66 L (3.80-5.40) m/uL Hgb 7.5 L (11.4-16.0) gm/dL Hct 25.7 L (34.0-46.0) % MCV 96.6 (80.0-100.0) fL MCH 28.1 (25.0-35.0) pg MCHC 29.1 L (31.0-37.0) g/dL RDW 16.8 H (11.5-15.5) % Plt Count 244 (150-450) k/uL Neutrophils % 79 % Lymphocytes % 12 % Monocytes % 5 % Eosinophils % 3 % Basophils % 1 % Neutrophils # 4.8 (1.3-7.7) k/uL Lymphocytes # 0.8 L (1.0-4.8) k/uL Monocytes # 0.3 (0-1.0) k/uL Eosinophils # 0.2 (0-0.7) k/uL Basophils # 0.0 (0-0.2) k/uL Hypochromasia Marked Poikilocytosis Slight Anisocytosis Slight PT (9.0-12.0) sec INR (<1.2) APTT (22.0-30.0) sec Sodium 141 (137-145) mmol/L Potassium 4.1 (3.5-5.1) mmol/L Chloride 108 H (98-107) mmol/L Carbon Dioxide 20 L (22-30) mmol/L Anion Gap 13 mmol/L BUN 17 (7-17) mg/dL Creatinine 0.70 (0.52-1.04) mg/dL Est GFR (MDRD) Af Amer >60 (>60 ml/min/1.73 sqM) Est GFR (MDRD) Non-Af >60 (>60 ml/min/1.73 sqM) Glucose 111 H (74-99) mg/dL Calcium 9.3 (8.4-10.2) mg/dL Magnesium 1.8 (1.6-2.3) mg/dL Total Bilirubin 0.5 (0.2-1.3) mg/dL AST 18 (14-36) U/L ALT 33 (9-52) U/L Alkaline Phosphatase 70 (38-126) U/L Total Creatine Kinase 45 (30-135) U/L CK-MB (CK-2) 0.9 (0.0-2.4) ng/mL CK-MB (CK-2) Rel Index 2.0 Troponin I <0.012 (0.000-0.034) ng/mL NT-Pro-B Natriuret Pep pg/mL Total Protein 7.3 (6.3-8.2) g/dL Albumin 4.6 (3.5-5.0) g/dL 06/13/17 06/13/17 Range/Units 14:52 14:52 WBC (3.8-10.6) k/uL RBC (3.80-5.40) m/uL Hgb (11.4-16.0) gm/dL Hct (34.0-46.0) % MCV (80.0-100.0) fL MCH (25.0-35.0) pg MCHC (31.0-37.0) g/dL RDW (11.5-15.5) % Plt Count (150-450) k/uL Neutrophils % % Lymphocytes % % Monocytes % % Eosinophils % % Basophils % % Neutrophils # (1.3-7.7) k/uL Lymphocytes # (1.0-4.8) k/uL Monocytes # (0-1.0) k/uL Eosinophils # (0-0.7) k/uL Basophils # (0-0.2) k/uL Hypochromasia Poikilocytosis Anisocytosis PT 10.5 (9.0-12.0) sec INR 1.0 (<1.2) APTT 20.1 L (22.0-30.0) sec Sodium (137-145) mmol/L Potassium (3.5-5.1) mmol/L Chloride (98-107) mmol/L Carbon Dioxide (22-30) mmol/L Anion Gap mmol/L BUN (7-17) mg/dL Creatinine (0.52-1.04) mg/dL Est GFR (MDRD) Af Amer (>60 ml/min/1.73 sqM) Est GFR (MDRD) Non-Af (>60 ml/min/1.73 sqM) Glucose (74-99) mg/dL Calcium (8.4-10.2) mg/dL Magnesium (1.6-2.3) mg/dL Total Bilirubin (0.2-1.3) mg/dL AST (14-36) U/L ALT (9-52) U/L Alkaline Phosphatase (38-126) U/L Total Creatine Kinase (30-135) U/L CK-MB (CK-2) (0.0-2.4) ng/mL CK-MB (CK-2) Rel Index Troponin I (0.000-0.034) ng/mL NT-Pro-B Natriuret Pep 703 pg/mL Total Protein (6.3-8.2) g/dL Albumin (3.5-5.0) g/dL Disposition Clinical Impression: Dyspnea, Anemia, GI bleed Disposition: ADMITTED IP TO THIS HOSP Referrals: Kylee Downey MD [Primary Care Provider] - 1-2 days Time of Disposition: 16:08
[2017-06-13 15:10] LABS: Anisocytosis Slight; Basophils % (A) 1 %; CHCM 30.2; Eosinophils # (A) 0.2 k/uL (0-0.7); Eosinophils % (A) 3 %; HCT 25.7 % (34.0-46.0); HDW 3.83; HGB 7.5 gm/dL (11.4-16.0); Hypochromasia Marked; Luc # (Auto) 0.07; Luc % (Auto) 1; Lymphocytes # (A) 0.8 k/uL (1.0-4.8); Lymphocytes % (A) 12 %; MCH 28.1 pg (25.0-35.0); MCHC 29.1 g/dL (31.0-37.0); MCV 96.6 fL (80.0-100.0); Mean Platelet Volume 7.9; Monocytes # (A) 0.3 k/uL (0-1.0); Monocytes % (A) 5 %; Neutrophils # (A) 4.8 k/uL (1.3-7.7); Neutrophils % (A) 79 %; Poikilocytosis Slight; RBC 2.66 m/uL (3.80-5.40); RDW 16.8 % (11.5-15.5); WBC 6.1 k/uL (3.8-10.6); WBC (Perox) 6.57
[2017-06-13 15:13] LABS: Prothrombin Time 10.5 sec (9.0-12.0)
--- NOTE | 2017-06-13 15:14 | XR ---
EXAMINATION TYPE: XR chest 2V DATE OF EXAM: 06/13/2017 COMPARISON: NONE HISTORY: Shortness of breath TECHNIQUE: Frontal and lateral views of the chest are obtained. FINDINGS: Scattered senescent parenchymal changes noted. Hyperinflation compatible with COPD. Patchy infrahilar densities may reflect underlying pneumonia. Correlate clinically. Heart size is mildly enlarged. Mediastinal structures are stable and grossly unremarkable. No evidence for hilar prominence. Degenerative changes dorsal spine. IMPRESSION: Patchy infrahilar densities may reflect underlying pneumonia. Correlate clinically.
[2017-06-13 15:16] LABS: ALT 33 U/L (9-52); AST 18 U/L (14-36); Alkaline Phosphatase 70 U/L (38-126); Anion Gap 13 mmol/L; Blood Urea Nitrogen 17 mg/dL (7-17); Calcium 9.3 mg/dL (8.4-10.2); Carbon Dioxide 20 mmol/L (22-30); Chloride 108 mmol/L (98-107); Glucose 111 mg/dL (74-99); Magnesium 1.8 mg/dL (1.6-2.3); Non-African American GFR(MDRD) >60 (>60 ml/min/1.73 sqM); Potassium 4.1 mmol/L (3.5-5.1); Sodium 141 mmol/L (137-145); Total Bilirubin 0.5 mg/dL (0.2-1.3); Total Protein 7.3 g/dL (6.3-8.2)
[2017-06-13 15:23] LABS: Creatine Kinase 45 U/L (30-135)
[2017-06-13 15:31] LABS: Partial Thromboplastin Time 20.1 sec (22.0-30.0)
[2017-06-13 15:37] LABS: Creatine Kinase MB 0.9 ng/mL (0.0-2.4); Troponin I <0.012 ng/mL (0.000-0.034)
[2017-06-13] MEDS ORDERED: SODIUM CHLORIDE 0.9% 1,000 ML IV ONE (16:08)
[2017-06-13] MEDS ORDERED: NITROGLYCERIN SL TABS 0.4 MG TAB SUBLINGUAL PRN (17:17)
[2017-06-13] MEDS ORDERED: metFORMIN 500 MG TAB PO SCH (18:00)
[2017-06-13] MEDS: INSULIN LISPRO (humaLOG) 300 UNIT/3 ML VIAL SQ SCH ×2 (18:35→21:11)
--- NOTE | 2017-06-13 18:49 | HP ---
HISTORY AND PHYSICAL DATE OF SERVICE: 06/13/2017. CHIEF COMPLAINT: Shortness of breath. HISTORY: This 76-year-old woman with a past medical history of multiple medical problems, including history of history of asthma, history atrial flutter/fibrillation, history of GERD, diabetes type [address] Downey in the outpatient setting has previously had a chronic GI bleed which showed history of small-bowel AVM with cauterization. Patient had colonoscopy also previously. Currently the patient is complaining of tiredness, weakness, shortness of breath and leg swelling. Patient came to [facility]. Hemoglobin was found to be 7.5. Patient admitted for further evaluation and treatment. There is no history of fever, rigors. No history of headache, loss of consciousness. PAST MEDICAL HISTORY: Atrial flutter/fibrillation, history of diabetes, GERD, GI bleed. MEDICATIONS: Home medications are: 1. Albuterol 2 puffs q.4h p.r.n. 2. Metformin 1000 mg p.o. b.i.d. 3. Ocuvite 1 daily. 4. Zoloft 100 mg daily. 5. Actos 30 mg daily. 6. Omeprazole 40 mg daily. 7. Nitrostat 0.4 sublingual p.r.n. 8. Singular 10 mg p.o. daily. 9. Vitamin B12 1000 mcg p.o. daily. 10.Cozaar 75 mg p.o. daily. 11.Synthroid 200 mcg p.o. daily. 12.Flonase 1 spray daily. 13.Iron 66 mg p.o. daily. 14.Flovent 2 puffs b.i.d. 15.Cardizem CD 120 mg p.o. daily. ALLERGIES: PENICILLIN AND SULFA. FAMILY HISTORY: No history of heart disease. No history strokes in the family. History atrial fibrillation, renal disease and cancer in the family. SOCIAL HISTORY: History of occasional alcohol. Prior history of smoking. REVIEW OF SYSTEMS: ENT: Diminished hearing. Diminished vision. CARDIOVASCULAR: No angina. RESPIRATORY: As mentioned earlier. GI: As mentioned earlier. : No dysuria. NERVOUS: No numbness, weakness. ALLERGY/IMMUNOLOGY: No asthma, hay fever. MUSCULOSKELETAL: As mentioned earlier. HEMATOLOGY/ONCOLOGY: As mentioned earlier. ENDOCRINE: As mentioned earlier. CONSTITUTIONAL: As mentioned earlier. DERMATOLOGY: Negative. RHEUMATOLOGY: As mentioned earlier. PSYCHIATRY: As mentioned earlier. PHYSICAL EXAM: Patient is alert, oriented x3. The pulse is 61, blood pressure 126/86, respirations 20, temperature 98.3, pulse ox 100% on 2L. HEENT: Conjunctivae are pale. Oral mucosa moist. NECK: No jugular venous distention per palpation otherwise. CARDIOVASCULAR SYSTEM: S1, S2 muffled. No S3. No S4. Breath sounds diminished in the bases. A few scattered rhonchi. No crackles. ABDOMEN: Soft, obese, nontender. No mass palpable. LEGS: Bilateral leg edema. NERVOUS SYSTEM: Higher functions as mentioned earlier. Moves all 4 limbs. No focal motor or sensory deficit. LYMPHATIC: No lymphadenopathy in neck or axillae. SKIN: No ulcer, rash or bleeding. LABS: WBC 6.1, hemoglobin is 7.5. ASSESSMENT: 1. Symptomatic anemia, possible gastrointestinal GI bleed. 2. Congestive heart failure acute exacerbation, possibly acute diastolic dysfunction secondary to anemia. 3. History of atrial fibrillation. 4. History of diabetes. 5. History of gastrointestinal bleed as well as small-bowel arteriovenous malformation and cauterization history. 6. History of breast cancer. 7. Diabetes type 2. 8. Hypertension. 9. Hyperlipidemia. RECOMMENDATIONS AND DISCUSSION: In this 76-year-old woman who presented with multiple complex medical issues, will monitor the patient closely. Continue with the current management. Continue with symptomatic treatment. Will need transfusion cautiously with Lasix. Monitor fluid- electrolyte balance closely. I would also recommend to cardiology consultation as well as a Gastroenterology consultation. Avoid antiplatelet agents for now. Otherwise, prognosis guarded because of multiple complex medical issues and further recommendations to follow. A copy will be forwarded to Dr. Downey, who is the primary physician. MMODL / IJN: [id number] /
[2017-06-13] MEDS: ALBUTEROL NEBULIZED 2.5 MG/3 ML INHALATION PRN (19:44)
[2017-06-13] MEDS: BUDESONIDE 1 MG/2 ML NEBU INHALATION SCH (19:44)
[2017-06-13 20:51] LABS: Glucose,Whole Blood 118 mg/dL (75-99)
[2017-06-13 21:03] LABS: Hemoglobin A1C 3.8 % (4.2-6.1)
[2017-06-13] MEDS: metFORMIN 500 MG TAB PO SCH (21:08)
[2017-06-13] MEDS: PANTOPRAZOLE 40 MG TABLET PO SCH (21:09)
[2017-06-14 02:21] LABS: Appearance,Urine Clear (Clear); Bacteria,Urine Rare /hpf; Bilirubin,Urine Negative (Negative); Glucose,Urine (UA) Negative (Negative); Ketones,Urine Negative (Negative); Leukocyte Esterase,Urine Large (Negative); Mucus,Urine Rare /hpf; Nitrite,Urine Negative (Negative); PH, Urine 5.5 (5.0-8.0); Particle Count 4278; Protein,Urine Negative (Negative); RBC,Urine <1 /hpf (0-5); Specific Gravity,Urine 1.012 (1.001-1.035); Squamous Epithelial Cell,Urine <1 /hpf (0-4); UA Billing (MACRO vs. MICRO) MICRO; Urobilinogen,Urine <2.0 mg/dL (<2.0); WBC,Urine 63 /hpf (0-5)
[2017-06-14] MEDS: FUROSEMIDE 10 MG/ML 4 ML VIAL IV SCH ×2 (02:46→08:34)
[2017-06-14] MEDS: LEVOTHYROXINE 100 MCG TAB PO SCH (06:06)
[2017-06-14 06:53] LABS: Glucose,Whole Blood 150 mg/dL (75-99)
--- NOTE | 2017-06-14 08:18 | ECHOF ---
Referral Reason:chf MEASUREMENTS -------- HEIGHT: 162.6 cm WEIGHT: 106.6 kg BP: 118/58 IVSd: 1.1 cm (0.6 - 1.1) LVIDd: 5.2 cm (3.9 - 5.3) LVPWd: 1.0 cm (0.6 - 1.1) IVSs: 1.6 cm LVIDs: 2.6 cm LVPWs: 1.3 cm LAESV Index (A-L): 38.57 ml/m Ao Diam: 2.8 cm (2.0 - 3.7) AV Cusp: 1.8 cm (1.5 - 2.6) LA Diam: 3.4 cm (2.7 - 3.8) MV EXCURSION: 12.842 mm (> 18.000) MV EF SLOPE: 94 mm/s (70 - 150) EPSS: 0.8 cm MV E Zeb: 1.11 m/s MV DecT: 255 ms MV A Zeb: 0.89 m/s MV E/A Ratio: 1.25 RAP: 15.00 mmHg RVSP: 48.79 mmHg FINDINGS -------- Sinus rhythm. This was a technically adequate study. The left ventricular size is normal. Left ventricular wall thickness is normal. Overall left ventricular systolic function is normal with, an EF between 55 - 60 %. The right ventricle is normal in size and function. LA is moderately dilated 34-39 ml/m2 The right atrium is normal in size. The aortic valve is trileaflet, and appears structurally normal. No aortic stenosis or regurgitation. The mitral valve leaflets are mildly thickened. Mild mitral annular calcification present. Moderate mitral regurgitation is present. Mild tricuspid regurgitation present. There is mild pulmonary hypertension. The right ventricular systolic pressure, as measured by Doppler, is 48.79mmHg. Pulmonic valve appears structurally normal. The aortic root size is normal. The inferior vena cava is severely dilated but collapses Echo free space represents a pericardial fat pad. CONCLUSIONS -------- 1. Sinus rhythm. 2. The mitral valve leaflets are mildly thickened. 3. Mild mitral annular calcification present. 4. Moderate mitral regurgitation is present. 5. Mild tricuspid regurgitation present. 6. There is mild pulmonary hypertension. 7. The right ventricular systolic pressure, as measured by Doppler, is 48.79mmHg. 8. Pulmonic valve appears structurally normal. 9. The aortic root size is normal. 10. The inferior vena cava is severely dilated but collapses. 11. Echo free space represents a pericardial fat pad. 12. This was a technically adequate study. 13. The left ventricular size is normal. 14. Left ventricular wall thickness is normal. 15. Overall left ventricular systolic function is normal with, an EF between 55 - 60 %. 16. The right ventricle is normal in size and function. 17. LA is moderately dilated 34-39 ml/m2 18. The right atrium is normal in size. 19. The aortic valve is trileaflet, and appears structurally normal. No aortic stenosis or regurgitation. VEGETABLE PICKER: Rosanne Stein RDCS
[2017-06-14] MEDS: INSULIN LISPRO (humaLOG) 300 UNIT/3 ML VIAL SQ SCH ×4 (08:31→20:12)
[2017-06-14] MEDS: MONTELUKAST 10 MG TAB PO SCH (08:33)
[2017-06-14] MEDS: SERTRALINE 100 MG TAB PO SCH (08:33)
[2017-06-14] MEDS: metFORMIN 500 MG TAB PO SCH ×2 (08:33→20:12)
[2017-06-14] MEDS: PIOGLITAZONE 30 MG TAB PO SCH (08:33)
[2017-06-14] MEDS: DILTIAZEM CD 120 MG CAP.ER.24H PO SCH (08:33)
[2017-06-14] MEDS: LOSARTAN 25 MG TAB PO SCH (08:33)
[2017-06-14] MEDS: FLUTICASONE 50MCG/SPRAY NASAL 16GM EA NOSTRIL SCH (08:33)
[2017-06-14] MEDS: ALBUTEROL NEBULIZED 2.5 MG/3 ML INHALATION PRN ×3 (08:42→19:58)
[2017-06-14] MEDS: BUDESONIDE 1 MG/2 ML NEBU INHALATION SCH ×2 (08:42→19:58)
--- NOTE | 2017-06-14 09:07 | P.CRDCN ---
History of Present Illness Consult date: 06/14/17 History of present illness: This is a 76-year-old female past medical history significant for atrial fibrillation/flutter, diabetes, gastroesophageal reflux disease, hypertension, hyperlipidemia and hypothyroidism. She states she underwent a manual routine physical where she sent in a stool sample for evaluation. She was called and notified that there was blood in the stool and she should present to the hospital for evaluation. She states she waited. She had a vacation planned in [place]. Her vacation she noticed that she was becoming increasingly short of breath with mild exertion and was having lower extremity swelling. She treated this to the excessive walking she was doing. She denies chest pain, dizziness or palpitations. She has a documented history of atrial fibrillation for which she does not take on long-term anticoagulation. She says she was first diagnosed visiting [place] a couple of years ago when she was experiencing some chest discomfort and palpitations. She was maintained on Cardizem 120 mg daily, losartan 75 mg daily. She states she has never seen a maintenance person for any reason. She follows with her primary care doctor regularly. After she came back from [place] with the diagnosis of A. fib she wore a 30 event monitor which was negative for any arrhythmia. She is seen today sitting in bed resting comfortably eating breakfast. In no acute distress. She denies chest pain, orthopnea, PND, dizziness or palpitations. Her shortness of breath is only with exertion. She states she has been struggling with anemia over the last year or so. She follows regularly with Dr. Ríos. Lasix has been ordered 40 mg IV push twice a day. EKG reveals sinus mechanism with nonspecific abnormalities. Chest x-ray reveals patchy infrahilar densities may represent an underlying pneumonia. ProBNP 703, cardiac enzymes negative and , creatinine 0.7, potassium 4.1, magnesium 1.8, hemoglobin 7.5. Review of Systems CONSTITUTIONAL: Denies fever. Denies chills. EYES: Denies blurred vision. Denies vision changes. Denies eye pain. EARS, NOSE, MOUTH & THROAT: Denies headache. Denies sore throat. Denies ear pain. CARDIOVASCULAR: Denies chest pain. Complains of exertional shortness of breath. Denies orthopnea. Denies PND. Denies palpitations. RESPIRATORY: Denies cough. GASTROINTESTINAL: Denies abdominal pain. Denies diarrhea. Denies constipation. Denies nausea. Denies vomitng. MUSCULOSKELETAL: Denies myalgias. INTEGUMENTARY: Denies pruitis. Denies rash. NEUROLOGIC: Denies numbness. Denies tingling. Denies weakness. PSYCHIATRIC: Denies anxiety. Denies depression. ENDOCRINE: Denies fatigue. Denies weight change. Denies polydipsia. Denies polyurina. GENITOURINARY: Denies burning, hematuria or urgency with micturation. HEMATOLOGIC: Denies history of anemia. Denies bleeding. Past Medical History Past Medical History: Atrial Fibrillation, Atrial Flutter, Asthma, Cancer, Diabetes Mellitus, GERD/Reflux, GI Bleed, Hyperlipidemia, Hypertension, Thyroid Disorder Additional Past Medical History / Comment(s): Current URI-was to start ABX but has not yet, lower GI bleeds, blood loss anemia, iron deficiency anemia, gastric ulcer, diverticulosis, NIDDM type II, hx L breast cancer with surgery/ chemo/radiation, hypothryroid. History of Any Multi-Drug Resistant Organisms: None Reported Past Surgical History: Appendectomy, Breast Surgery, Cholecystectomy, Orthopedic Surgery, Tonsillectomy Additional Past Surgical History / Comment(s): Left Breast Lumpectomy and lymph nodes, rt knee arthroscopy, EGDs/colonoscopies, capsule endoscopy, cauterization small bleeds in intestine per pt, bilateral cataract removals with lens implants. Past Anesthesia/Blood Transfusion Reactions: No Reported Reaction Additional Past Anesthesia/Blood Transfusion Reaction / Comment(s): Pt has received blood without reaction. She has clausterphobia. Smoking Status: Former smoker - Past Family History Father Family Medical History: No Reported History Additional Family Medical History / Comment(s): dad -chocked on peice of meat Mother Family Medical History: AFIB, Cancer, Congestive Heart Failure (CHF), Renal Disease Additional Family Medical History / Comment(s): Atrial Fibrillation and brain cancer. Medications and Allergies Home Medications Medication Instructions Recorded Confirmed Type Cyanocobalamin [Vitamin B-12] 1,000 mcg PO DAILY 09/06/15 06/13/17 History Diltiazem Cd [Cardizem CD] 120 mg PO DAILY 09/06/15 06/13/17 History Losartan Potassium [Cozaar] 75 mg PO DAILY 09/06/15 06/13/17 History Nitroglycerin Sl Tabs [Nitrostat] 0.4 mg SUBLINGUAL Q5M PRN 09/06/15 06/13/17 History Sertraline [Zoloft] 100 mg PO DAILY 09/06/15 06/13/17 History Vits A,C,E/Lutein/Minerals 1 tab PO DAILY 09/06/15 06/13/17 History [Ocuvite with Lutein Tablet] metFORMIN HCL 1,000 mg PO BID 09/06/15 06/13/17 History Levothyroxine Sodium [Synthroid] 200 mcg PO DAILY 10/23/16 06/13/17 History Montelukast [Singulair] 10 mg PO DAILY 10/23/16 06/13/17 History Omeprazole 40 mg PO HS 10/23/16 06/13/17 History Pioglitazone HCl [Actos] 30 mg PO DAILY 10/23/16 06/13/17 History Albuterol Inhaler [Ventolin Hfa 2 puff INHALATION RT-Q4H PRN 06/13/17 06/13/17 History Inhaler] Ferrous Sulfate [Iron (65 MG 650 mg PO DAILY 06/13/17 06/13/17 History Elemental)] Fluticasone Nasal [place] [Flonase 1 spray EA NOSTRIL DAILY 06/13/17 06/13/17 History Nasal [place]] Fluticasone Propionate [Flovent 2 puff INHALATION RT-BID 06/13/17 06/13/17 History Hfa 220MCG] Allergies Allergy/AdvReac Type Severity Reaction Status Date / Time Penicillins Allergy Unknown Verified 06/13/17 12:52 Sulfa (Sulfonamide Allergy Rash/Hives Verified 06/13/17 12:52 Antibiotics) Physical Exam Vitals: Vital Signs Temp Pulse Pulse Resp BP BP Pulse Ox 06/14/17 07:00 96.8 F L 74 20 132/65 94 L 06/14/17 02:02 97.4 F L 63 20 125/69 94 L 06/13/17 23:00 96.9 F L 69 20 118/58 94 L 06/13/17 22:49 97.4 F L 63 18 125/69 94 L 06/13/17 22:19 97.5 F L 70 20 105/55 92 L 06/13/17 22:09 98.2 F 71 20 115/53 95 06/13/17 19:59 64 06/13/17 16:35 98.3 F 64 19 139/65 93 L 06/13/17 15:35 20 06/13/17 15:22 61 20 126/86 100 06/13/17 13:27 65 18 132/63 99 06/13/17 12:41 97.8 F 65 26 H 133/60 96 Intake and Output 06/13/17 06/14/17 06/14/17 22:59 06:59 14:59 Intake Total 400 410 Output Total 1 Balance 399 410 Intake: Oral 400 100 Blood Product 0 310 Rc Pheresis As-3 Unit 0 310 [id number] Output: Urine/Stool Mix 1 Other: # Voids 0 1 # Bowel Movements 0 1 GENERAL: This is a 76-year-old female in no apparent distress at the time of my examination. Morbidly obese. HEENT: Head is atraumatic, normocephalic. Pupils are equal, round. Sclerae anicteric. Conjunctivae are clear. Mucous membranes of the mouth are moist. Neck is supple. There is no jugular venous distention. No carotid bruit is heard. LUNGS: Clear to auscultation no wheezes, rales or rhonchi. No chest wall tenderness is noted on palpation or with deep breathing. HEART: Regular rate and rhythm with systolic ejection type murmur at the base, no rubs or gallops. S1 and S2 heard. ABDOMEN: Soft, nontender. Bowel sounds are heard. No organomegaly noted. EXTREMITIES: 2+ peripheral pulses with 1+ pretibial lower extremity edema bilaterally and no calf tenderness noted. NEUROLOGIC: Patient is awake, alert and oriented x3. Results 06/13/17 14:52 06/13/17 14:52 Cardiac Enzymes 06/13/17 06/13/17 Range/Units 14:52 14:52 AST 18 (14-36) U/L CK-MB (CK-2) 0.9 (0.0-2.4) ng/mL Troponin I <0.012 (0.000-0.034) ng/mL Coagulation 06/13/17 Range/Units 14:52 PT 10.5 (9.0-12.0) sec APTT 20.1 L (22.0-30.0) sec CBC 06/13/17 Range/Units 14:52 WBC 6.1 (3.8-10.6) k/uL RBC 2.66 L (3.80-5.40) m/uL Hgb 7.5 L (11.4-16.0) gm/dL Hct 25.7 L (34.0-46.0) % Plt Count 244 (150-450) k/uL Comprehensive Metabolic Panel 06/13/17 Range/Units 14:52 Sodium 141 (137-145) mmol/L Potassium 4.1 (3.5-5.1) mmol/L Chloride 108 H (98-107) mmol/L Carbon Dioxide 20 L (22-30) mmol/L BUN 17 (7-17) mg/dL Creatinine 0.70 (0.52-1.04) mg/dL Glucose 111 H (74-99) mg/dL Calcium 9.3 (8.4-10.2) mg/dL AST 18 (14-36) U/L ALT 33 (9-52) U/L Alkaline Phosphatase 70 (38-126) U/L Total Protein 7.3 (6.3-8.2) g/dL Albumin 4.6 (3.5-5.0) g/dL Current Medications Generic Name Dose Route Start Last Admin Trade Name Freq PRN Reason Stop Dose Admin Albuterol Sulfate 2.5 mg 06/13/17 17:17 06/13/17 19:44 Ventolin Nebulized INHALATION 2.5 mg RT-Q4H PRN Administration Shortness Of Breath Budesonide 1 mg 06/13/17 20:00 06/13/17 19:44 Pulmicort INHALATION 1 mg RT-BID DARREN Administration Cyanocobalamin 1,000 mcg 06/14/17 12:00 Vitamin B-12 PO 1200 DARREN Diltiazem HCl 120 mg 06/14/17 09:00 Cardizem Cd PO DAILY DARREN Fluticasone Propionate 1 spray 06/14/17 09:00 Flonase Nasal [place] EA NOSTRIL DAILY DARREN Furosemide 40 mg 06/13/17 21:00 06/14/17 02:46 Lasix IV 40 mg Q12HR DARREN Administration Insulin Human Lispro 0 unit 06/13/17 17:30 06/13/17 21:11 Humalog SQ Not Given ACHS [facility] Protocol Levothyroxine Sodium 200 mcg 06/14/17 06:30 06/14/17 06:06 Synthroid PO 200 mcg 0630 DARREN Administration Losartan Potassium 75 mg 06/14/17 09:00 Cozaar PO DAILY DARREN Metformin HCl 1,000 mg 06/13/17 21:00 06/13/17 21:08 Glucophage PO 1,000 mg BID DARREN Administration Montelukast Sodium 10 mg 06/14/17 09:00 Singulair PO DAILY DARREN Nitroglycerin 0.4 mg 06/13/17 17:17 Nitrostat SUBLINGUAL Q5M PRN Chest Pain Pantoprazole Sodium 40 mg 06/13/17 21:00 06/13/17 21:09 Protonix PO 40 mg HS DARREN Administration Pioglitazone HCl 30 mg 06/14/17 09:00 Actos PO DAILY DARREN Sertraline HCl 100 mg 06/14/17 09:00 Zoloft PO DAILY DARREN Intake and Output 06/13/17 06/14/17 06/14/17 22:59 06:59 14:59 Intake Total 400 410 Output Total 1 Balance 399 410 Intake: Oral 400 100 Blood Product 0 310 Rc Pheresis As-3 Unit 0 310 [id number] Output: Urine/Stool Mix 1 Other: # Voids 0 1 # Bowel Movements 0 1 06/13/17 14:52 06/13/17 14:52 Assessment and Plan Plan: ASSESSMENT 1. Exertional shortness of breath 2. Acute blood loss anemia with history of GI bleeding 3. Essential hypertension 4. Hyperlipidemia 5. Diabetes mellitus 6. History of atrial fibrillation/flutter PLAN Shortness of breath most likely secondary to anemia. Echocardiogram completed and reveals preserved left ventricular function with ejection fraction 55-60% with moderate MR and mild pulmonary hypertension with an RVSP of 48.79 mmHg. Lasix can be given by the oral route. She does not take any long-term anticoagulation for her history of atrial arrhythmia. From a cardiac perspective this patient does not appear to be in an acute heart failure exacerbation. Please free to call us if you have any further questions or concerns. The above impression and plan of care have been discussed and directed by the signing physician. Linda Perez, nurse practitioner, acting as scribe for signing physician.
[2017-06-14 10:20] LABS: Anisocytosis Slight; Basophils % (A) 1 %; CH 28.6; CHCM 30.2; Eosinophils # (A) 0.1 k/uL (0-0.7); Eosinophils % (A) 2 %; HCT 26.1 % (34.0-46.0); HDW 4.06; HGB 7.6 gm/dL (11.4-16.0); Hypochromasia Marked; Luc % (Auto) 2; Lymphocytes # (A) 0.7 k/uL (1.0-4.8); Lymphocytes % (A) 12 %; MCHC 29.2 g/dL (31.0-37.0); MCV 95.7 fL (80.0-100.0); Mean Platelet Volume 8.1; Monocytes # (A) 0.3 k/uL (0-1.0); Monocytes % (A) 6 %; Neutrophils # (A) 4.6 k/uL (1.3-7.7); Neutrophils % (A) 78 %; Poikilocytosis Moderate; RBC 2.73 m/uL (3.80-5.40); RDW 17.2 % (11.5-15.5); WBC 5.9 k/uL (3.8-10.6); WBC (Perox) 6.41
[2017-06-14 10:43] LABS: Anion Gap 14 mmol/L; Blood Urea Nitrogen 13 mg/dL (7-17); Calcium 8.9 mg/dL (8.4-10.2); Carbon Dioxide 22 mmol/L (22-30); Chloride 105 mmol/L (98-107); Glucose 201 mg/dL (74-99); Non-African American GFR(MDRD) >60 (>60 ml/min/1.73 sqM); Sodium 141 mmol/L (137-145)
[2017-06-14] MEDS: FUROSEMIDE 40 MG TAB PO SCH (11:15)
--- NOTE | 2017-06-14 11:58 | P.CONS ---
History of Present Illness - Reason for Consult Consult date: 06/14/17 anemia Requesting physician: Kenny Garza - History of Present Illness 76-year-old female well-known to the GI service with a past medical history of iron deficiency anemia, GI bleed secondary to peptic ulcer disease small bowel AVM, asthma, A. fib, breast carcinoma, hyperlipidemia, hypertension, anxiety depression, hypothyroid. Patient admitted with shortness of breath. Consultation requested for anemia. No signs of overt bleeding such as hematemesis hematochezia melena. Hemoccult negative. Denies abdominal pain. Admission hemoglobin 7.5 unchanged from October 2016 when it was 7.6. MCV 95. Platelet 215. BUN 13. Creatinine 0.8. Maintained on oral iron twice daily. Evaluated by her oncologist last month with follow-up in 2 months. No weight loss. Extensive endoscopic workup in the past for anemia. EGD evaluation Dr. Palmer September 2015 unremarkable. EGD colonoscopy October 2013 Dr. Palmer small duodenal ulceration followed by repeat double in December [address] Franco findings of gastritis and diverticulosis. Small bowel capsule endoscopy December 2015 fresh oozing seen in the proximal duodenum and proximal jejunum without mucosal lesion. Enteroscopy with cautery performed shortly thereafter. Review of Systems Constitutional: Denies fever, chills, sweats, weight gain, or loss. HEENT: Negative for migraines, blurred vision or loss, earaches, drainage, tinnitus, oral mucosal lesions, dysphagia, or odynophagia. CARDIAC: Atrial fibrillation. Hyperlipidemia. Hypertension. Negative for chest pain, arrhythmias, or palpitation. RESPIRATORY: Negative for shortness of breath, hemoptysis, cough, or sputum production. GI: See HPI for pertinent findings. : Negative for hematuria, urgency, frequency, polyuria, or dysuria. GYNc: Breast carcinoma. Negative vaginal discharge. MUSCULOSKELETAL: Negative for muscle aches, swelling, arthritis, and arthralgias. NEUROLOGIC: Negative for stroke or TIA. ENDOCRINE: Diabetes. Hypothyroidism. SKIN: Negative for rash or itching. PSYCHIATRIC: Anxiety. Depression. Past Medical History Past Medical History: Atrial Fibrillation, Atrial Flutter, Asthma, Cancer, Diabetes Mellitus, GERD/Reflux, GI Bleed, Hyperlipidemia, Hypertension, Thyroid Disorder Additional Past Medical History / Comment(s): Current URI-was to start ABX but has not yet, lower GI bleeds, blood loss anemia, iron deficiency anemia, gastric ulcer, diverticulosis, NIDDM type II, hx L breast cancer with surgery/ chemo/radiation, hypothryroid. History of Any Multi-Drug Resistant Organisms: None Reported Past Surgical History: Appendectomy, Breast Surgery, Cholecystectomy, Orthopedic Surgery, Tonsillectomy Additional Past Surgical History / Comment(s): Left Breast Lumpectomy and lymph nodes, rt knee arthroscopy, EGDs/colonoscopies, capsule endoscopy, cauterization small bleeds in intestine per pt, bilateral cataract removals with lens implants. Past Anesthesia/Blood Transfusion Reactions: No Reported Reaction Additional Past Anesthesia/Blood Transfusion Reaction / Comm: Pt has received blood without reaction. She has clausterphobia. Smoking Status: Former smoker - Past Family History Father Family Medical History: No Reported History Additional Family Medical History / Comment(s): dad -chocked on peice of meat Mother Family Medical History: AFIB, Cancer, Congestive Heart Failure (CHF), Renal Disease Additional Family Medical History / Comment(s): Atrial Fibrillation and brain cancer. Medications and Allergies Home Medications Medication Instructions Recorded Confirmed Type Cyanocobalamin [Vitamin B-12] 1,000 mcg PO DAILY 09/06/15 06/13/17 History Diltiazem Cd [Cardizem CD] 120 mg PO DAILY 09/06/15 06/13/17 History Losartan Potassium [Cozaar] 75 mg PO DAILY 09/06/15 06/13/17 History Nitroglycerin Sl Tabs [Nitrostat] 0.4 mg SUBLINGUAL Q5M PRN 09/06/15 06/13/17 History Sertraline [Zoloft] 100 mg PO DAILY 09/06/15 06/13/17 History Vits A,C,E/Lutein/Minerals 1 tab PO DAILY 09/06/15 06/13/17 History [Ocuvite with Lutein Tablet] metFORMIN HCL 1,000 mg PO BID 09/06/15 06/13/17 History Levothyroxine Sodium [Synthroid] 200 mcg PO DAILY 10/23/16 06/13/17 History Montelukast [Singulair] 10 mg PO DAILY 10/23/16 06/13/17 History Omeprazole 40 mg PO HS 10/23/16 06/13/17 History Pioglitazone HCl [Actos] 30 mg PO DAILY 10/23/16 06/13/17 History Albuterol Inhaler [Ventolin Hfa 2 puff INHALATION RT-Q4H PRN 06/13/17 06/13/17 History Inhaler] Ferrous Sulfate [Iron (65 MG 650 mg PO DAILY 06/13/17 06/13/17 History Elemental)] Fluticasone Nasal [place] [Flonase 1 spray EA NOSTRIL DAILY 06/13/17 06/13/17 History Nasal [place]] Fluticasone Propionate [Flovent 2 puff INHALATION RT-BID 06/13/17 06/13/17 History Hfa 220MCG] Allergies Allergy/AdvReac Type Severity Reaction Status Date / Time Penicillins Allergy Unknown Verified 06/13/17 12:52 Sulfa (Sulfonamide Allergy Rash/Hives Verified 06/13/17 12:52 Antibiotics) Physical Exam Vitals: Vital Signs Temp Pulse Pulse Resp BP BP Pulse Ox 06/14/17 09:05 78 06/14/17 08:52 76 06/14/17 07:00 96.8 F L 74 20 132/65 94 L 06/14/17 02:02 97.4 F L 63 20 125/69 94 L 06/13/17 23:00 96.9 F L 69 20 118/58 94 L 06/13/17 22:49 97.4 F L 63 18 125/69 94 L 06/13/17 22:19 97.5 F L 70 20 105/55 92 L 06/13/17 22:09 98.2 F 71 20 115/53 95 06/13/17 19:59 64 06/13/17 16:35 98.3 F 64 19 139/65 93 L 06/13/17 15:35 20 06/13/17 15:22 61 20 126/86 100 06/13/17 13:27 65 18 132/63 99 06/13/17 12:41 97.8 F 65 26 H 133/60 96 Intake and Output 06/13/17 06/14/17 06/14/17 22:59 06:59 14:59 Intake Total 400 410 580 Output Total 1 Balance 399 410 580 Intake: Oral 400 100 580 Blood Product 0 310 Rc Pheresis As-3 Unit 0 310 [id number] Output: Urine/Stool Mix 1 Other: # Voids 0 1 # Bowel Movements 0 1 General appearance: The patient is alert, oriented, in no acute distress. HET: Head is normocephalic and atraumatic. Pupils are equal and reactive. Oropharynx is clear without lesions. Neck: Supple without lymphadenopathy. Trachea midline. Heart: S1 S2. Regular rate and rhythm. Lungs: No crackles or wheezes are heard. Abdomen: Soft, nontender, nondistended with bowel sounds. No peritoneal signs. No palpable organomegaly or masses. Extremities: Normal skin color and turgor. No cyanosis, rash, ulceration, clubbing, or edema. Radial and pedal pulses are 2/4 bilaterally. Neurological: No focal deficits. Strength and sensation are grossly intact. Results CBC & Chem 7: 06/14/17 09:25 06/14/17 09:25 Labs: Abnormal Lab Results - Last 24 Hours (Table) 06/13/17 06/13/17 06/13/17 Range/Units 14:52 14:52 14:52 RBC 2.66 L (3.80-5.40) m/uL Hgb 7.5 L (11.4-16.0) gm/dL Hct 25.7 L (34.0-46.0) % MCHC 29.1 L (31.0-37.0) g/dL RDW 16.8 H (11.5-15.5) % Lymphocytes # 0.8 L (1.0-4.8) k/uL APTT 20.1 L (22.0-30.0) sec Chloride 108 H (98-107) mmol/L Carbon Dioxide 20 L (22-30) mmol/L Glucose 111 H (74-99) mg/dL POC Glucose (mg/dL) (75-99) mg/dL Hemoglobin A1c (4.2-6.1) % Ur Leukocyte Esterase (Negative) Urine WBC (0-5) /hpf Urine Bacteria (None) /hpf Urine Mucus (None) /hpf Crossmatch 06/13/17 06/13/17 06/13/17 Range/Units 14:52 14:52 20:49 RBC (3.80-5.40) m/uL Hgb (11.4-16.0) gm/dL Hct (34.0-46.0) % MCHC (31.0-37.0) g/dL RDW (11.5-15.5) % Lymphocytes # (1.0-4.8) k/uL APTT (22.0-30.0) sec Chloride (98-107) mmol/L Carbon Dioxide (22-30) mmol/L Glucose (74-99) mg/dL POC Glucose (mg/dL) 118 H (75-99) mg/dL Hemoglobin A1c 3.8 L (4.2-6.1) % Ur Leukocyte Esterase (Negative) Urine WBC (0-5) /hpf Urine Bacteria (None) /hpf Urine Mucus (None) /hpf Crossmatch See Detail 06/14/17 06/14/17 06/14/17 Range/Units 00:10 06:47 09:25 RBC 2.73 L (3.80-5.40) m/uL Hgb 7.6 L (11.4-16.0) gm/dL Hct 26.1 L (34.0-46.0) % MCHC 29.2 L (31.0-37.0) g/dL RDW 17.2 H (11.5-15.5) % Lymphocytes # 0.7 L (1.0-4.8) k/uL APTT (22.0-30.0) sec Chloride (98-107) mmol/L Carbon Dioxide (22-30) mmol/L Glucose (74-99) mg/dL POC Glucose (mg/dL) 150 H (75-99) mg/dL Hemoglobin A1c (4.2-6.1) % Ur Leukocyte Esterase Large H (Negative) Urine WBC 63 H (0-5) /hpf Urine Bacteria Rare H (None) /hpf Urine Mucus Rare H (None) /hpf Crossmatch 06/14/17 Range/Units 09:25 RBC (3.80-5.40) m/uL Hgb (11.4-16.0) gm/dL Hct (34.0-46.0) % MCHC (31.0-37.0) g/dL RDW (11.5-15.5) % Lymphocytes # (1.0-4.8) k/uL APTT (22.0-30.0) sec Chloride (98-107) mmol/L Carbon Dioxide (22-30) mmol/L Glucose 201 H (74-99) mg/dL POC Glucose (mg/dL) (75-99) mg/dL Hemoglobin A1c (4.2-6.1) % Ur Leukocyte Esterase (Negative) Urine WBC (0-5) /hpf Urine Bacteria (None) /hpf Urine Mucus (None) /hpf Crossmatch Assessment and Plan (1) Iron (Fe) deficiency anemia Narrative/Plan: 76-year-old female admitted with shortness of breath with her lying history of chronic iron deficiency anemia. No overt symptoms of bleeding such as hematemesis hematochezia melena with negative Hemoccult stool testing. Hemoglobin unchanged over the last several months. History of GI bleed secondary to peptic ulcer disease bleeding small bowel AVM status post enteroscopy 2015. Status: Chronic Plan: 1. Diet as tolerated. Right now patient is not interested in pursuing endoscopic exams for anemia considering no overt symptoms, Hemoccult negative stool, and CBC relatively unchanged from October 2016 maintained on oral iron twice daily. 2. Continue to monitor CBC closely. 3. Continue oral iron twice daily. 4. Protonix 40 mg daily. 5. Will follow with you. Thank you for this kind referral and the opportunity to participate in the care of your patient. This consultation was discussed with Dr. Gomez. The impression and plan of care have been directed as dictated.
[2017-06-14] MEDS ORDERED: CYANOCOBALAMIN 500 MCG TAB PO SCH (12:00)
[2017-06-14 12:23] LABS: Glucose,Whole Blood 117 mg/dL (75-99)
--- NOTE | 2017-06-14 15:55 | P.CONS ---
History of Present Illness - Reason for Consult Consult date: 06/14/17 anemia Requesting physician: Ag Christine - Chief Complaint progressive weakness - History of Present Illness Lo is very pleasant female pt of Dr. Ríos who has a history of iron deficient anemia secondary to GI bleeding and a history of left breast cancer. 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 In December of 2013 is the 1st documentation in our records of pt having GI bleed (it is documented as recurrent), she has had several hospitalizations over the last 4 years for the same, she has had colonoscopies and EGDs, she has had multiple transfusions. She was found to have bleeding in the small bowel, she has been off of asa, NSAIDs and other antiplatelet agents, no blood thinners. Pt states she usually knows when she is going to be anemic as she will start having black stool. Pt was constipated prior to admission but once she did have a BM is was black. She denies any other bleeding, no nausea, vomiting, abd pain, cramping or bloating, pain with BM. She is easily fatigued, mildy SOB on exertion, she has no idea what causes the bleeding. Pt was last seen by Dr. Ríos 05/01 with 3 mo follow up planned, she last received parenteral iron in March, iron studies in April. Review of Systems 10 point ROS as stated in HPI Past Medical History Past Medical History: Atrial Fibrillation, Atrial Flutter, Asthma, Cancer, Diabetes Mellitus, GERD/Reflux, GI Bleed, Hyperlipidemia, Hypertension, Thyroid Disorder Additional Past Medical History / Comment(s): Current URI-was to start ABX but has not yet, lower GI bleeds, blood loss anemia, iron deficiency anemia, gastric ulcer, diverticulosis, NIDDM type II, hx L breast cancer with surgery/ chemo/radiation, hypothryroid. History of Any Multi-Drug Resistant Organisms: None Reported Past Surgical History: Appendectomy, Breast Surgery, Cholecystectomy, Orthopedic Surgery, Tonsillectomy Additional Past Surgical History / Comment(s): Left Breast Lumpectomy and lymph nodes, rt knee arthroscopy, EGDs/colonoscopies, capsule endoscopy, cauterization small bleeds in intestine per pt, bilateral cataract removals with lens implants. Past Anesthesia/Blood Transfusion Reactions: No Reported Reaction Additional Past Anesthesia/Blood Transfusion Reaction / Comm: Pt has received blood without reaction. She has clausterphobia. Past Psychological History: No Psychological Hx Reported Smoking Status: Former smoker Past Alcohol Use History: Unable to Obtain Past Drug Use History: None Reported - Past Family History Father Family Medical History: No Reported History Additional Family Medical History / Comment(s): dad -chocked on peice of meat Mother Family Medical History: AFIB, Cancer, Congestive Heart Failure (CHF), Renal Disease Additional Family Medical History / Comment(s): Atrial Fibrillation and brain cancer. Medications and Allergies Home Medications Medication Instructions Recorded Confirmed Type Cyanocobalamin [Vitamin B-12] 1,000 mcg PO DAILY 09/06/15 06/13/17 History Diltiazem Cd [Cardizem CD] 120 mg PO DAILY 09/06/15 06/13/17 History Losartan Potassium [Cozaar] 75 mg PO DAILY 09/06/15 06/13/17 History Nitroglycerin Sl Tabs [Nitrostat] 0.4 mg SUBLINGUAL Q5M PRN 09/06/15 06/13/17 History Sertraline [Zoloft] 100 mg PO DAILY 09/06/15 06/13/17 History Vits A,C,E/Lutein/Minerals 1 tab PO DAILY 09/06/15 06/13/17 History [Ocuvite with Lutein Tablet] metFORMIN HCL 1,000 mg PO BID 09/06/15 06/13/17 History Levothyroxine Sodium [Synthroid] 200 mcg PO DAILY 10/23/16 06/13/17 History Montelukast [Singulair] 10 mg PO DAILY 10/23/16 06/13/17 History Omeprazole 40 mg PO HS 10/23/16 06/13/17 History Pioglitazone HCl [Actos] 30 mg PO DAILY 10/23/16 06/13/17 History Albuterol Inhaler [Ventolin Hfa 2 puff INHALATION RT-Q4H PRN 06/13/17 06/13/17 History Inhaler] Ferrous Sulfate [Iron (65 MG 650 mg PO DAILY 06/13/17 06/13/17 History Elemental)] Fluticasone Nasal [place] [Flonase 1 spray EA NOSTRIL DAILY 06/13/17 06/13/17 History Nasal [place]] Fluticasone Propionate [Flovent 2 puff INHALATION RT-BID 06/13/17 06/13/17 History Hfa 220MCG] Allergies Allergy/AdvReac Type Severity Reaction Status Date / Time Penicillins Allergy Unknown Verified 06/13/17 12:52 Sulfa (Sulfonamide Allergy Rash/Hives Verified 06/13/17 12:52 Antibiotics) Physical Exam Vitals: Vital Signs Temp Pulse Pulse Resp BP BP Pulse Ox 06/14/17 14:33 98.3 F 63 20 117/54 96 06/14/17 09:05 78 06/14/17 08:52 76 06/14/17 07:00 96.8 F L 74 20 132/65 94 L 06/14/17 02:02 97.4 F L 63 20 125/69 94 L 06/13/17 23:00 96.9 F L 69 20 118/58 94 L 06/13/17 22:49 97.4 F L 63 18 125/69 94 L 06/13/17 22:19 97.5 F L 70 20 105/55 92 L 06/13/17 22:09 98.2 F 71 20 115/53 95 06/13/17 19:59 64 06/13/17 16:35 98.3 F 64 19 139/65 93 L 06/13/17 15:35 20 Intake and Output 06/14/17 06/14/17 06/14/17 06:59 14:59 22:59 Intake Total 410 580 Balance 410 580 Intake: Oral 100 580 Blood Product 310 Rc Pheresis As-3 Unit 310 [id number] Other: # Voids 1 3 # Bowel Movements 1 - Constitutional General appearance: cooperative, no acute distress, obese - EENT Eyes: anicteric sclerae, EOMI, normal appearance ENT: hearing grossly normal, normal oropharynx - Neck Neck: no lymphadenopathy - Respiratory Respiratory: bilateral: CTA - Cardiovascular Rhythm: regular Heart sounds: normal: S1, S2 Abnormal Heart Sounds: no systolic murmur, no diastolic murmur, no rub, no S3 Gallop, no S4 Gallop, no click, no other leg Peripheral Edema: bilateral: None - Gastrointestinal General gastrointestinal: no absent bowel sounds, no decreased bowel sounds, no distended, no hepatomegaly, no hyperactive bowel sounds, normal bowel sounds, no organomegaly, no rigid, no scaphoid, soft, no splenomegaly, no tenderness, no umbilical hernia, no ventral hernia - Integumentary Integumentary: normal turgor, pale - Neurologic Neurologic: CNII-XII intact - Musculoskeletal Musculoskeletal: strength equal bilaterally - Psychiatric Psychiatric: A&O x's 3, appropriate affect, intact judgment & insight Results CBC & Chem 7: 06/14/17 09:25 06/14/17 09:25 Labs: Abnormal Lab Results - Last 24 Hours (Table) 06/13/17 06/13/17 06/13/17 Range/Units 14:52 14:52 14:52 RBC (3.80-5.40) m/uL Hgb (11.4-16.0) gm/dL Hct (34.0-46.0) % MCHC (31.0-37.0) g/dL RDW (11.5-15.5) % Lymphocytes # (1.0-4.8) k/uL APTT 20.1 L (22.0-30.0) sec Glucose (74-99) mg/dL POC Glucose (mg/dL) (75-99) mg/dL Hemoglobin A1c 3.8 L (4.2-6.1) % Ur Leukocyte Esterase (Negative) Urine WBC (0-5) /hpf Urine Bacteria (None) /hpf Urine Mucus (None) /hpf Crossmatch See Detail 06/13/17 06/14/17 06/14/17 Range/Units 20:49 00:10 06:47 RBC (3.80-5.40) m/uL Hgb (11.4-16.0) gm/dL Hct (34.0-46.0) % MCHC (31.0-37.0) g/dL RDW (11.5-15.5) % Lymphocytes # (1.0-4.8) k/uL APTT (22.0-30.0) sec Glucose (74-99) mg/dL POC Glucose (mg/dL) 118 H 150 H (75-99) mg/dL Hemoglobin A1c (4.2-6.1) % Ur Leukocyte Esterase Large H (Negative) Urine WBC 63 H (0-5) /hpf Urine Bacteria Rare H (None) /hpf Urine Mucus Rare H (None) /hpf Crossmatch 06/14/17 06/14/17 06/14/17 Range/Units 09:25 09:25 12:15 RBC 2.73 L (3.80-5.40) m/uL Hgb 7.6 L (11.4-16.0) gm/dL Hct 26.1 L (34.0-46.0) % MCHC 29.2 L (31.0-37.0) g/dL RDW 17.2 H (11.5-15.5) % Lymphocytes # 0.7 L (1.0-4.8) k/uL APTT (22.0-30.0) sec Glucose 201 H (74-99) mg/dL POC Glucose (mg/dL) 117 H (75-99) mg/dL Hemoglobin A1c (4.2-6.1) % Ur Leukocyte Esterase (Negative) Urine WBC (0-5) /hpf Urine Bacteria (None) /hpf Urine Mucus (None) /hpf Crossmatch Comments: ECHO report reviewed Chest x-ray: report reviewed Assessment and Plan (1) GI bleed Narrative/Plan: Highly suspect GI bleed, pt has had before, Hgb dropped and she did have large black BM after being dis-impacted. GI note reviewed Status: Acute (2) Iron (Fe) deficiency anemia Narrative/Plan: Pt states intolerance to oral iron-severe constipation which leads to abd pain. Will re-check iron studies, last checked 05/02 in office and saturation was 16 % ferritin was 175. If low recommended to pt more frequent monitoring and parenteral iron administration PRN instead of oral supplement, constipation is not associated with IV route of administration, pt is interested. Will sched office follow up for after discharge for lab review. Status: Chronic
[2017-06-14 17:24] LABS: Glucose,Whole Blood 142 mg/dL (75-99)
[2017-06-14] MEDS: FERROUS SULFATE 325 MG TAB PO SCH (17:37)
--- NOTE | 2017-06-14 17:44 | P.PN ---
Subjective Progress Note Date: 06/14/17 Progress Note being dictated for Dr. Garza. Interval history: This a 76-year-old female admitted with symptomatic anemia, possible acute GI bleed, acute exacerbation of CHF in a patient with history of GI bleed, small bowel AV malformation , cauterization, and multiple other medical issues. Evaluated by oncology ,GI and cardiology with recommendations noted. Afebrile. Transfusions of packed RBCs last night,Hemoglobin 7.6 . Denies hematemesis, no melena. Patient currently declining further endoscopy evaluation. Denies chest pain, palpitations or increasing shortness of breath. Objective - Vital Signs Vital signs: Vital Signs Temp 98.3 F 06/14/17 14:33 Pulse 63 06/14/17 14:33 Resp 20 06/14/17 14:33 BP 117/54 06/14/17 14:33 Pulse Ox 96 06/14/17 14:33 Intake & Output 06/13/17 06/14/17 06/14/17 18:59 06:59 18:59 Intake Total 810 580 Output Total 1 Balance 809 580 Weight 106.594 kg Intake: Oral 500 580 Blood Product 310 Rc Pheresis As-3 Unit 310 [id number] Output: Urine/Stool Mix 1 Other: # Voids 1 3 # Bowel Movements 1 - Exam PHYSICAL EXAM: VITAL SIGNS: [As above] GENERAL: Sitting up in bed, tired appearing HEENT: Conjunctivae normal. eyes normal. NECK: No JVD. No thyroid enlargement. No LNs CARDIOVASCULAR: S1, S2 muffled. No murmur RESPIRATION: Breath sounds diminished in the bases. No rhonchi or crackles. No bronchial breathing. ABDOMEN: Soft, nontender . No guarding. no masses palpable..Bowel sounds heard. LEGS: No edema. no swelling PSYCHIATRY: Alert and oriented -3, mood and affect normal. NERVOUS SYSTEM: Cranial N 2-12 grossly normal. Moves all 4 limbs. Diffuse weakness No focal deficits. No sensory deficit. Skin: no ulcer no rash Joints: No active swelling. No inflammation. Lymphatic system. No LN neck axilla or groin. - Labs CBC & Chem 7: 06/14/17 09:25 06/14/17 09:25 Labs: Abnormal Lab Results - Last 24 Hours (Table) 06/13/17 06/13/17 06/13/17 Range/Units 14:52 14:52 20:49 RBC (3.80-5.40) m/uL Hgb (11.4-16.0) gm/dL Hct (34.0-46.0) % MCHC (31.0-37.0) g/dL RDW (11.5-15.5) % Lymphocytes # (1.0-4.8) k/uL Glucose (74-99) mg/dL POC Glucose (mg/dL) 118 H (75-99) mg/dL Hemoglobin A1c 3.8 L (4.2-6.1) % Ur Leukocyte Esterase (Negative) Urine WBC (0-5) /hpf Urine Bacteria (None) /hpf Urine Mucus (None) /hpf Crossmatch See Detail 06/14/17 06/14/17 06/14/17 Range/Units 00:10 06:47 09:25 RBC 2.73 L (3.80-5.40) m/uL Hgb 7.6 L (11.4-16.0) gm/dL Hct 26.1 L (34.0-46.0) % MCHC 29.2 L (31.0-37.0) g/dL RDW 17.2 H (11.5-15.5) % Lymphocytes # 0.7 L (1.0-4.8) k/uL Glucose (74-99) mg/dL POC Glucose (mg/dL) 150 H (75-99) mg/dL Hemoglobin A1c (4.2-6.1) % Ur Leukocyte Esterase Large H (Negative) Urine WBC 63 H (0-5) /hpf Urine Bacteria Rare H (None) /hpf Urine Mucus Rare H (None) /hpf Crossmatch 06/14/17 06/14/17 06/14/17 Range/Units 09:25 12:15 17:22 RBC (3.80-5.40) m/uL Hgb (11.4-16.0) gm/dL Hct (34.0-46.0) % MCHC (31.0-37.0) g/dL RDW (11.5-15.5) % Lymphocytes # (1.0-4.8) k/uL Glucose 201 H (74-99) mg/dL POC Glucose (mg/dL) 117 H 142 H (75-99) mg/dL Hemoglobin A1c (4.2-6.1) % Ur Leukocyte Esterase (Negative) Urine WBC (0-5) /hpf Urine Bacteria (None) /hpf Urine Mucus (None) /hpf Crossmatch Assessment and Plan Plan: 1. [ Symptomatic anemia, iron deficient possible GI bleed]. 2. CHF, possibly acute diastolic dysfunction secondary to anemia]. 3. [ History of GI bleed, small bowel AV malformation, cauterization 4. [history of breast cancer].]. 5. [ Diabetes mellitus type 2]. 6. [ History of atrial fibrillation]. Plan: Continue on current medication regime, PPI, iron, Lasix, monitoring and symptomatic treatment. Maintain 1200 mL fluid restriction. Diet advancement as per GI. Close monitoring of hemoglobin, electrolytes with repeat labs ordered in a.m. patient declining endoscopy evaluation at this time as mentioned above-Discharge planning in progress for tomorrow. The impression and plan of care has been dictated as directed. : I performed a history and examination of this patient, discussed the same with the dictator. I agree with the dictator's note ,documented as a scribe. Any additional findings or plans will be noted.
[2017-06-14 20:12] LABS: Glucose,Whole Blood 148 mg/dL (75-99)
[2017-06-14] MEDS: PANTOPRAZOLE 40 MG TABLET PO SCH (20:12)
[2017-06-15] MEDS: LEVOTHYROXINE 100 MCG TAB PO SCH (06:15)
[2017-06-15 07:26] LABS: Glucose,Whole Blood 140 mg/dL (75-99)
[2017-06-15 07:32] VITALS: BP 125/57; RESP 16; TEMP 97.8
[2017-06-15] MEDS: FERROUS SULFATE 325 MG TAB PO SCH (08:18)
[2017-06-15] MEDS: DILTIAZEM CD 120 MG CAP.ER.24H PO SCH (08:19)
[2017-06-15] MEDS: SERTRALINE 100 MG TAB PO SCH (08:19)
[2017-06-15] MEDS: FUROSEMIDE 40 MG TAB PO SCH (08:19)
[2017-06-15] MEDS: PIOGLITAZONE 30 MG TAB PO SCH (08:19)
[2017-06-15] MEDS: FLUTICASONE 50MCG/SPRAY NASAL 16GM EA NOSTRIL SCH (08:19)
[2017-06-15] MEDS: LOSARTAN 25 MG TAB PO SCH (08:19)
[2017-06-15] MEDS: metFORMIN 500 MG TAB PO SCH (08:19)
[2017-06-15] MEDS: INSULIN LISPRO (humaLOG) 300 UNIT/3 ML VIAL SQ SCH ×2 (08:20→12:32)
[2017-06-15] MEDS: MONTELUKAST 10 MG TAB PO SCH (08:20)
[2017-06-15 08:45] LABS: Anisocytosis Slight; Basophils % (A) 1 %; CH 27.9; CHCM 29.7; Eosinophils # (A) 0.1 k/uL (0-0.7); Eosinophils % (A) 3 %; HCT 25.7 % (34.0-46.0); HDW 4.05; HGB 7.6 gm/dL (11.4-16.0); Hypochromasia Marked; Luc # (Auto) 0.13; Luc % (Auto) 3; Lymphocytes # (A) 0.6 k/uL (1.0-4.8); Lymphocytes % (A) 12 %; MCH 27.9 pg (25.0-35.0); MCHC 29.5 g/dL (31.0-37.0); MCV 94.7 fL (80.0-100.0); Monocytes # (A) 0.3 k/uL (0-1.0); Monocytes % (A) 5 %; Neutrophils # (A) 3.9 k/uL (1.3-7.7); Neutrophils % (A) 77 %; Poikilocytosis Moderate; RBC 2.71 m/uL (3.80-5.40); RDW 16.3 % (11.5-15.5); WBC 5.1 k/uL (3.8-10.6); WBC (Perox) 5.15
[2017-06-15 09:21] LABS: Anion Gap 12 mmol/L; Blood Urea Nitrogen 16 mg/dL (7-17); Calcium 8.9 mg/dL (8.4-10.2); Carbon Dioxide 22 mmol/L (22-30); Chloride 106 mmol/L (98-107); Glucose 129 mg/dL (74-99); Non-African American GFR(MDRD) >60 (>60 ml/min/1.73 sqM); Sodium 140 mmol/L (137-145)
--- NOTE | 2017-06-15 11:12 | PN ---
PROGRESS NOTE DATE OF DICTATION: 06/15/2017 The patient is a 76-year-old pleasant white female admitted to the hospital with shortness of breath. She was noted to have microcytic anemia, and hence we were consulted in regards to this issue. The patient since being in the hospital has not had any abdominal pain; no nausea, vomiting; no rectal bleeding or melena. She had recurrent iron deficiency anemia and underwent endoscopic workup by Dr. Palmer in 2013 as well as in 2015. She did have a small bowel capsule endoscopy in December of 2015 that showed some oozing in the duodenum, and I did an upper endoscopy/enteroscopy with duodenal arteriovenous malformations that were cauterized. Since then, the patient has been on iron supplementation and has been doing well. During this hospitalization she was noted to have a hemoglobin of 7.5 g/dL with normal MCV. She reports no symptoms today. PHYSICAL EXAMINATION: She appears comfortable. No apparent distress. Vital signs are stable. Blood pressure is 129/60, pulse rate 71, temperature 98.2. HEENT EXAMINATION: Unremarkable. Conjunctivae are pink, sclerae anicteric. Oral cavity with no lesions. NECK: No JVD or lymph node enlargement. Chest was clear to auscultation. HEART: Regular rate and rhythm. ABDOMEN: Soft. Bowel sounds are positive. No organomegaly. EXTREMITIES: No pedal edema. SKIN: No rashes. NEURO: She is alert and oriented x3. No focal deficits. LABS FROM TODAY: WBC 5.1, hemoglobin 7.6, and platelets are normal. Basic metabolic panel is within normal limits. IMPRESSION: Symptomatic normocytic anemia with clinically no evidence of active ongoing bleeding. Patient in the past did have evidence of iron deficiency anemia, for which she underwent EGD, colonoscopy by Dr. 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 Currently she is asymptomatic. No active GI bleeding. She does have normocytic anemia, but hemoglobin is stable since admission for the last 2 days. RECOMMENDATIONS: 1. Since there is no evidence of active bleeding, we will not plan on any endoscopic intervention at the present time. 2. I advised her to continue on iron supplements. 3. She can be discharged home with outpatient followup in a couple weeks and we will follow hemoglobin closely on an outpatient basis. If she continues to drop her hemoglobin, I will consider further workup on an outpatient basis. At this time we will sign off. Thank you for this consultation. SUBHASH / ERIC: [id number] /
[2017-06-15] MEDS: BUDESONIDE 1 MG/2 ML NEBU INHALATION SCH ×2 (11:30→11:34)
[2017-06-15 11:35] VITALS: PULSE 80
[2017-06-15 12:16] LABS: Glucose,Whole Blood 106 mg/dL (75-99)
--- NOTE | 2017-06-15 17:45 | P.DS ---
Providers Date of admission: 06/13/17 16:08 Attending physician: Kenny Garza Consults: 06/13/17 16:09 Consult Physician Urgent Consulting Provider: Varun Valentine Consult Reason/Comments: GI bleed Do you want consulting provider notified?: Yes 06/13/17 16:10 Consult Physician Urgent Consulting Provider: Suhail Ríos Consult Reason/Comments: Anemia Do you want consulting provider notified?: Yes Primary care physician: [facility] Course: This 76-year-old woman who had a past medical history multiple medical problems was admitted symptomatic anemia hemoglobin is 7.1. Patient also had history of for CHF. Patient was treated with blood transfusions and Lasix. Patient improved significantly. Patient also had history of for AV malformation for which was cauterized previously by Dr. Cortes. The Dr. Cortes saw the patient during the hospitalization. Patient was advised to follow-up in the outpatient setting for possible endoscopies. There are transfusion patient is stabilized. Hemoglobin 7.6. Patient be discharged in a stable condition with guarded prognosis. I have recommended the patient to follow up closely with the primary physician and Dr. Cortes following of hemoglobin. Total time taken 35 minutes. On exam vitals stable. Conjunctiva pale. Cardio S1 and S2 normal. Respirator system clear to auscultation. Abdomen soft nontender. Final diagnosis 1. Symptomatic anemia and deficiency possibly GI bleed acute on chronic. 2. CHF possible acute on chronic diastolic dysfunction secondary to anemia. 3. 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 4. History of breast cancer. 5. Diabetes was type II. 6. History of atrial fibrillation Plan - Discharge Summary New Discharge Prescriptions: New Furosemide [Lasix] 20 mg PO DAILY #5 tab Continue Nitroglycerin Sl Tabs [Nitrostat] 0.4 mg SUBLINGUAL Q5M PRN PRN Reason: Chest Pain metFORMIN HCL 1,000 mg PO BID Diltiazem Cd [Cardizem CD] 120 mg PO DAILY Cyanocobalamin [Vitamin B-12] 1,000 mcg PO DAILY Sertraline [Zoloft] 100 mg PO DAILY Losartan Potassium [Cozaar] 75 mg PO DAILY Pioglitazone HCl [Actos] 30 mg PO DAILY Omeprazole 40 mg PO HS Montelukast [Singulair] 10 mg PO DAILY Levothyroxine Sodium [Synthroid] 200 mcg PO DAILY Fluticasone Nasal [place] [Flonase Nasal [place]] 1 spray EA NOSTRIL DAILY Ferrous Sulfate [Iron (65 MG Elemental)] 650 mg PO DAILY Fluticasone Propionate [Flovent Hfa 220MCG] 2 puff INHALATION RT-BID Albuterol Inhaler [Ventolin Hfa Inhaler] 2 puff INHALATION RT-Q4H PRN PRN Reason: Shortness Of Breath Discontinued Vits A,C,E/Lutein/Minerals [Ocuvite with Lutein Tablet] 1 tab PO DAILY Discharge Medication List Cyanocobalamin [Vitamin B-12] 1,000 mcg PO DAILY 09/06/15 [History] Diltiazem Cd [Cardizem CD] 120 mg PO DAILY 09/06/15 [History] Losartan Potassium [Cozaar] 75 mg PO DAILY 09/06/15 [History] Nitroglycerin Sl Tabs [Nitrostat] 0.4 mg SUBLINGUAL Q5M PRN 09/06/15 [History] Sertraline [Zoloft] 100 mg PO DAILY 09/06/15 [History] metFORMIN HCL 1,000 mg PO BID 09/06/15 [History] Levothyroxine Sodium [Synthroid] 200 mcg PO DAILY 10/23/16 [History] Montelukast [Singulair] 10 mg PO DAILY 10/23/16 [History] Omeprazole 40 mg PO HS 10/23/16 [History] Pioglitazone HCl [Actos] 30 mg PO DAILY 10/23/16 [History] Albuterol Inhaler [Ventolin Hfa Inhaler] 2 puff INHALATION RT-Q4H PRN 06/13/17 [ History] Ferrous Sulfate [Iron (65 MG Elemental)] 650 mg PO DAILY 06/13/17 [History] Fluticasone Nasal [place] [Flonase Nasal [place]] 1 spray EA NOSTRIL DAILY 06/13/17 [History] Fluticasone Propionate [Flovent Hfa 220MCG] 2 puff INHALATION RT-BID 06/13/17 [ History] Furosemide [Lasix] 20 mg PO DAILY #5 tab 06/15/17 [Rx] Follow up Appointment(s)/Referral(s): Seema Ricks NPC [Nurse Practitioner] - 06/24/17 1:30 pm Kylee Downey MD [Primary Care Provider] - 1-2 days Darlene Gomez MD [STAFF PHYSICIAN] - 1 Week Ambulatory/Diagnostic Orders: Complete Blood Count w/diff [LAB.AMB] Location: Determined By Patient Patient Instructions/Handouts: Anemia (DC) Activity/Diet/Wound Care/Special Instructions: diet soft bland act limited till f/u Discharge Disposition: HOME SELF-CARE
== END 2017-06-15 13:04 | disposition home or self-care (01) | DRG 811 ==
LOC: EC 12:38 → 4MS4W 16:08
PROVIDERS: ADMIT Hospitalist; ATTEND Hospitalist
PROC: 30233N1 Transfusion of Nonautologous Red Blood Cells into Peripheral Vein, Percutaneous Approach (ICD-10-PCS; principal; 2017-06-13)
DX: D50.9 Iron deficiency anemia, unspecified (principal); I50.33 Acute on chronic diastolic (congestive) heart failure; I48.91 Unspecified atrial fibrillation; E11.9 Type 2 diabetes mellitus without complications; I11.0 Hypertensive heart disease with heart failure; E03.9 Hypothyroidism, unspecified; E78.5 Hyperlipidemia, unspecified; J45.909 Unspecified asthma, uncomplicated; K21.9 Gastro-esophageal reflux disease without esophagitis; Z96.1 Presence of intraocular lens; Q27.33 Arteriovenous malformation of digestive system vessel; Z79.51 Long term (current) use of inhaled steroids; Z79.84 Long term (current) use of oral hypoglycemic drugs; Z79.899 Other long term (current) drug therapy; Z80.8 Family history of malignant neoplasm of other organs or systems; Z82.49 Family history of ischemic heart disease and other diseases of the circulatory system; Z85.3 Personal history of malignant neoplasm of breast; Z87.11 Personal history of peptic ulcer disease; Z87.891 Personal history of nicotine dependence; Z88.2 Allergy status to sulfonamides; Z88.0 Allergy status to penicillin
CPT/HCPCS: 36415; 71020; 80048; 80053; 81001; 82272; 82550; 82553; 83036; 83735; 83880; 84484; 85025; 85610; 85730; 86850; 86900; 86901; 86920; 93005; 93306; 94640; 99285

== ENCOUNTER → 2017-06-19 | Outpatient (CLI) | payer MEDICARE ==
--- NOTE | 2017-06-19 16:14 | BD ---
EXAMINATION TYPE: MG DEXA axial skeleton. DATE OF EXAM: 06/19/2017 COMPARISON: NONE CLINICAL HISTORY: screening osteoporosis Height: 5'3 Weight: 222 FRAX RISK QUESTIONS: Alcohol (3 or more units per day): no Family History (Parent hip fracture): no Glucocorticoids (More than 3mos): no (Ex: prednisone, prednisolone, methylprednisolone, dexamethasone, and hydrocortisone). History of Fracture in Adulthood: no Secondary Osteoporosis: 1. Type 1 Diabetes: no 2. Hyperthyroidism: no 3. Menopause before 45: no 4. Malnutrition: no 5. Chronic liver disease: no Rheumatoid Arthritis: no Current Tobacco Use: no RISK FACTORS HISTORY OF: Active: Postmenopausal woman: MEDICATIONS: Thyroid Medications: Which medication: Levothyroxine How Lon years Additional Medications: type 2 diabetes, high blood pressure Additional History: breast cancer 2009, radiation, and chemo EXAM MEASUREMENTS: Bone mineral densitometry was performed using the [employer]ia[employer] System. Bone mineral density as measured about the Lumbar spine is: ----- L1-L4(G/cm2): 1.170 T Score Values are as follows: ----- L2: -1.1 ----- L3: 1.2 ----- L4: 0.1 ----- L1-L4 :0.1 Bone mineral density about the R hip (g/cm2): 0.766 Bone mineral density about the L hip (g/cm2): 0.721 T Score values are as follows: -----R Neck: -2.0 -----L Neck: -2.3 -----R Total: -1.7 -----L Total: -2.0 IMPRESSION: Osteopenia (T Score between -2.5 and -1) as noted by T score values:L2, Lalo Hips There is slightly increased risk of fracture and the patient may be considered for treatment. Re-Screen 2-5 years. NOTE: T-SCORE=SD OF THE YOUNG ADULT MEAN.
== END | disposition home or self-care (01) ==
LOC: RADBDWWP 14:10
PROVIDERS: ATTEND Family Medicine
DX: M85.88 Other specified disorders of bone density and structure, other site (principal)
CPT/HCPCS: 77080

== ENCOUNTER 2017-07-10 06:34 | Day surgery (SDC) | payer MEDICARE ==
[2017-07-08 16:13] VITALS: BMI 37.4
[~2017-07-10 06:34] MED LIST: LACTATED RINGERS 1,000 ML IV SCH
[2017-07-10 07:06] VITALS: TEMP 97.6
[2017-07-10] MEDS ORDERED: LIDOCAINE 1% 20 ML VIAL (10MG/ML) FOR IV START INTRADERMA ONE (07:07)
[2017-07-10 07:09] LABS: Glucose,Whole Blood 130 mg/dL (75-99)
[2017-07-10] MEDS ORDERED: PROPOFOL 10 MG/ML 20 ML VIAL IV ONE (07:37)
--- NOTE | 2017-07-10 07:53 | P.PCN ---
Date of Procedure: 07/10/17 Implants: BRIEF HISTORY: Patient is a 76-year-old, pleasant, white female, scheduled for an upper endoscopy as a part of evaluation of iron deficiency anemia. She was recently admitted to the hospital with a hemoglobin of 7. In the past she had iron deficiency anemia and had an upper endoscopy as well as colonoscopy by Dr. Reveles 2015 followed by a small bowel capsule endoscopy that showed duodenal angiectasia for which she underwent a repeat upper endoscopy with cautery last year. Because of the persistent iron deficiency anemia she is scheduled for repeat upper endoscopy PROCEDURE PERFORMED: Esophagogastroduodenoscopy and argon plasma coagulation. PREOPERATIVE DIAGNOSIS: Persistent iron deficiency anemia. IV sedation per anesthesia. PROCEDURE: After informed consent was obtained, the patient was brought into the endoscopy unit. IV sedation was administered by Anesthesia under continuous monitoring. Initially the Olympus GIF-140 video pediatric colonoscope was inserted into the mouth. Esophagus intubated without any difficulty. It was gradually advanced into the stomach and duodenum and into the proximal jejunum carefully examined. In the first part of duodenum there was a 7 mm nonbleeding arteriovenous malformation identified and this was coagulated using argon plasma with good hemostasis. The bulb and the second and third part part of the duodenum appeared normal. The scope at this time was withdrawn to the stomach, adequately insufflated with air, and upon careful examination, mucosa of the antrum, had mild gastritis. The body, cardia and the fundus appeared normal. The scope was then withdrawn into the esophagus. The GE junction was located at 39 cm from the incisors. The esophagus appeared normal. There were no erosions or ulcerations seen and the patient tolerated the procedure well. IMPRESSION: 1. 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 2. Mild antral gastritis. RECOMMENDATIONS: The findings of this examination were discussed with the patient as well as her family. She was advised to resume iron supplements daily and monitor CBC on a monthly basis.
[2017-07-10 08:18] VITALS: BP 115/50; PULSE 58; RESP 18
== END 2017-07-10 08:59 | disposition home or self-care (01) ==
LOC: ORWHC2ENDO 06:34
PROVIDERS: ATTEND Internal Medicine Gastroenterology
DX: D50.9 Iron deficiency anemia, unspecified (principal); Q27.33 Arteriovenous malformation of digestive system vessel; K29.70 Gastritis, unspecified, without bleeding; I48.91 Unspecified atrial fibrillation; E11.9 Type 2 diabetes mellitus without complications; K21.9 Gastro-esophageal reflux disease without esophagitis; E07.9 Disorder of thyroid, unspecified; J45.909 Unspecified asthma, uncomplicated; F32.9 Major depressive disorder, single episode, unspecified; Z79.899 Other long term (current) drug therapy; Z88.2 Allergy status to sulfonamides; Z79.84 Long term (current) use of oral hypoglycemic drugs
CPT/HCPCS: 43255; J2704; 43270

== ENCOUNTER 2017-07-17 18:16 | Inpatient (IN) | payer MEDICARE ==
[2017-07-17] MEDS ORDERED: PANTOPRAZOLE 40 MG/10 ML VIAL IVP STA (18:57)
[2017-07-17 20:09] LABS: Partial Thromboplastin Time 22.6 sec (22.0-30.0); Prothrombin Time 10.2 sec (9.0-12.0)
[2017-07-17 20:12] LABS: ALT 28 U/L (9-52); AST 16 U/L (14-36); Alkaline Phosphatase 72 U/L (38-126); Anion Gap 10 mmol/L; Blood Urea Nitrogen 34 mg/dL (7-17); Calcium 9.5 mg/dL (8.4-10.2); Carbon Dioxide 23 mmol/L (22-30); Chloride 105 mmol/L (98-107); Glucose 115 mg/dL (74-99); Non-African American GFR(MDRD) >60 (>60 ml/min/1.73 sqM); Potassium 4.3 mmol/L (3.5-5.1); Sodium 138 mmol/L (137-145); Total Bilirubin 0.1 mg/dL (0.2-1.3); Total Protein 6.3 g/dL (6.3-8.2)
[2017-07-17 20:24] LABS: Creatine Kinase 27 U/L (30-135)
[2017-07-17 20:38] LABS: Creatine Kinase MB 0.5 ng/mL (0.0-2.4); Troponin I <0.012 ng/mL (0.000-0.034)
--- NOTE | 2017-07-17 20:39 | XR ---
EXAMINATION TYPE: XR abdomen 1V DATE OF EXAM: 07/17/2017 8:32 PM CLINICAL HISTORY: Mid abdominal pain and black stool. TECHNIQUE: Two Upright KUB images of the abdomen are obtained. COMPARISON: CT abdomen and pelvis December 06, 2015. FINDINGS: Scattered gas is seen in non-distended small bowel loops. Gas and fecal material is seen in non-distended colon. Cholecystectomy clips are present. No pneumoperitoneum is seen. There is modera te axial joint space loss in both hips. Lung bases are clear. IMPRESSION: Overall nonobstructive bowel gas pattern.
[2017-07-17 21:03] LABS: Anisocytosis Slight; Basophils % (A) 1 %; CH 25.8; CHCM 30.1; Eosinophils # (A) 0.2 k/uL (0-0.7); Eosinophils % (A) 4 %; HCT 23.2 % (34.0-46.0); HDW 2.98; HGB 7.3 gm/dL (11.4-16.0); Hypochromasia Marked; Luc # (Auto) 0.12; Luc % (Auto) 2; Lymphocytes # (A) 1.1 k/uL (1.0-4.8); Lymphocytes % (A) 18 %; MCH 27.1 pg (25.0-35.0); MCHC 31.5 g/dL (31.0-37.0); Mean Platelet Volume 8.3; Monocytes # (A) 0.4 k/uL (0-1.0); Monocytes % (A) 6 %; Neutrophils # (A) 4.3 k/uL (1.3-7.7); Neutrophils % (A) 69 %; RBC 2.69 m/uL (3.80-5.40); RDW 16.5 % (11.5-15.5); WBC 6.2 k/uL (3.8-10.6); WBC (Perox) 6.63
[2017-07-17 21:07] LABS: MCV 86.1 fL (80.0-100.0)
--- NOTE | 2017-07-17 21:28 | ED ---
General Adult HPI - General Chief complaint: GI Bleed Stated complaint: RECTAL BLEEDING Time Seen by Provider: 07/17/17 18:42 Source: patient, family, RN notes reviewed Mode of arrival: wheelchair Limitations: no limitations - History of Present Illness Initial comments: Patient is a pleasant 76-year-old female presenting to the emergency department with dark stools. Patient does have a history of similar symptoms previously associated with gastrointestinal hemorrhage. Patient did have scope done around 1 month ago. Patient also has known stomach ulcer. Patient states stools have been dark for the past couple of days. Patient complains of feeling more fatigued and exertional dyspnea. - Related Data Home Medications Medication Instructions Recorded Confirmed Losartan Potassium [Cozaar] 75 mg PO DAILY 09/06/15 07/17/17 Nitroglycerin Sl Tabs [Nitrostat] 0.4 mg SUBLINGUAL Q5M PRN 09/06/15 07/17/17 Sertraline [Zoloft] 100 mg PO DAILY 09/06/15 07/17/17 metFORMIN HCL 1,000 mg PO BID 09/06/15 07/17/17 Levothyroxine Sodium [Synthroid] 200 mcg PO DAILY 10/23/16 07/17/17 Montelukast [Singulair] 10 mg PO DAILY 10/23/16 07/17/17 Omeprazole 40 mg PO DAILY 10/23/16 07/17/17 Pioglitazone HCl [Actos] 30 mg PO DAILY 10/23/16 07/17/17 Albuterol Inhaler [Ventolin Hfa 2 puff INHALATION RT-Q4H PRN 06/13/17 07/17/17 Inhaler] Ferrous Sulfate [Iron (65 MG 325 mg PO BID 06/13/17 07/17/17 Elemental)] Fluticasone Nasal [place] [Flonase 1 spray EA NOSTRIL DAILY 06/13/17 07/17/17 Nasal [place]] Fluticasone Propionate [Flovent 2 puff INHALATION RT-BID 06/13/17 07/17/17 Hfa 220MCG] Diltiazem HCl [Cartia Xt] 120 mg PO DAILY 07/08/17 07/17/17 Vitamin D (Unknown Dose) 1 tab PO DAILY 07/08/17 07/17/17 Calcium(Unknown Dose) 1 tab PO DAILY 07/17/17 07/17/17 Cyanocobalamin (Vitamin B-12) 1,000 mcg PO DAILY 07/17/17 07/17/17 [Vitamin B-12] Glucosam/Emir-Msm1/C/Robert/Bosw 1 tab PO DAILY 07/17/17 07/17/17 [Glucosamine-Chondroitin Tablet] Vits A,C,E/Lutein/Minerals 1 tab PO HS 07/17/17 07/17/17 [Ocuvite with Lutein Tablet] Allergies Allergy/AdvReac Type Severity Reaction Status Date / Time Penicillins Allergy Unknown Verified 07/17/17 19:01 Childhood Sulfa (Sulfonamide Allergy Rash/Hives Verified 07/17/17 18:31 Antibiotics) Review of Systems ROS Statement: Those systems with pertinent positive or pertinent negative responses have been documented in the HPI. Constitutional: Denies: fever Eyes: Denies: eye pain ENT: Denies: ear pain Respiratory: Reports: dyspnea (With exertion). Denies: cough Cardiovascular: Reports: dyspnea on exertion Endocrine: Reports: fatigue Gastrointestinal: Reports: abdominal pain (Mild epigastric) Genitourinary: Denies: dysuria Musculoskeletal: Denies: back pain Skin: Denies: rash Neurological: Denies: weakness Past Medical History Past Medical History: Atrial Fibrillation, Atrial Flutter, Asthma, Cancer, Heart Failure, Diabetes Mellitus, GERD/Reflux, GI Bleed, Hearing Disorder / Deafness, Hyperlipidemia, Hypertension, Sleep Apnea/CPAP/BIPAP, Thyroid Disorder Additional Past Medical History / Comment(s): Hx of lower GI bleeds, blood loss anemia, iron deficiency anemia, gastric ulcer, diverticulosis, NIDDM type II, hx L breast cancer with surgery/chemo/radiation (2008), hypothryroid, C-Pap Machine, hospitalized at [facility] 06/13/17-06/15/17 for GI Bleeding and received blood transfusions., Lalo hearing aids., History of Any Multi-Drug Resistant Organisms: None Reported Past Surgical History: Appendectomy, Breast Surgery, Cholecystectomy, Orthopedic Surgery, Tonsillectomy Additional Past Surgical History / Comment(s): Left Breast Lumpectomy and lymph nodes, rt knee arthroscopy, EGDs/colonoscopies, capsule endoscopy, cauterization small bleeds in intestine per pt, bilateral cataract removals with lens implants. Past Anesthesia/Blood Transfusion Reactions: No Reported Reaction Additional Past Anesthesia/Blood Transfusion Reaction / Comment(s): Pt has received blood without reaction. She has clausterphobia. Past Psychological History: No Psychological Hx Reported Smoking Status: Former smoker Past Alcohol Use History: Unable to Obtain Past Drug Use History: None Reported - Past Family History Father Family Medical History: No Reported History Additional Family Medical History / Comment(s): . Mother Family Medical History: AFIB, Cancer, Congestive Heart Failure (CHF), Renal Disease Additional Family Medical History / Comment(s): Atrial Fibrillation and brain cancer. General Exam Limitations: no limitations General appearance: alert, in no apparent distress Head exam: Present: atraumatic Eye exam: Present: normal appearance, PERRL ENT exam: Present: normal oropharynx Neck exam: Present: normal inspection Respiratory exam: Present: normal lung sounds bilaterally Cardiovascular Exam: Present: regular rate, normal rhythm Expanded Peripheral pulses: 2+: Dorsalis Pedis (R), Dorsalis Pedis (L) GI/Abdominal exam: Present: soft, tenderness (Mild epigastric tenderness to palpation). Absent: distended Rectal exam: Present: black stool Extremities exam: Present: normal inspection Neurological exam: Present: alert Psychiatric exam: Present: normal affect, normal mood Skin exam: Present: normal color Course Vital Signs 07/17/17 07/17/17 18:28 20:13 Temperature 98.3 F Pulse Rate 71 70 Respiratory 16 18 Rate Blood Pressure 116/53 120/58 O2 Sat by Pulse 95 94 L Oximetry Medical Decision Making - Medical Decision Making Patient reexamined. Patient and family updated. Case was discussed with practitioner Cherelle, will admit for Dr. Garza, covering for Dr. Verdin. - Lab Data Result diagrams: 07/17/17 19:54 07/17/17 19:54 Lab Results 07/17/17 07/17/17 07/17/17 Range/Units 19:54 19:54 19:54 WBC 6.2 (3.8-10.6) k/uL RBC 2.69 L (3.80-5.40) m/uL Hgb 7.3 L (11.4-16.0) gm/dL Hct 23.2 L (34.0-46.0) % MCV 86.1 D (80.0-100.0) fL MCH 27.1 (25.0-35.0) pg MCHC 31.5 (31.0-37.0) g/dL RDW 16.5 H (11.5-15.5) % Plt Count 197 (150-450) k/uL Neutrophils % 69 % Lymphocytes % 18 % Monocytes % 6 % Eosinophils % 4 % Basophils % 1 % Neutrophils # 4.3 (1.3-7.7) k/uL Lymphocytes # 1.1 (1.0-4.8) k/uL Monocytes # 0.4 (0-1.0) k/uL Eosinophils # 0.2 (0-0.7) k/uL Basophils # 0.0 (0-0.2) k/uL Hypochromasia Marked Anisocytosis Slight PT (9.0-12.0) sec INR (<1.2) APTT (22.0-30.0) sec Sodium 138 (137-145) mmol/L Potassium 4.3 (3.5-5.1) mmol/L Chloride 105 (98-107) mmol/L Carbon Dioxide 23 (22-30) mmol/L Anion Gap 10 mmol/L BUN 34 H (7-17) mg/dL Creatinine 0.90 (0.52-1.04) mg/dL Est GFR (MDRD) Af Amer >60 (>60 ml/min/1.73 sqM) Est GFR (MDRD) Non-Af >60 (>60 ml/min/1.73 sqM) Glucose 115 H (74-99) mg/dL Calcium 9.5 (8.4-10.2) mg/dL Total Bilirubin 0.1 L (0.2-1.3) mg/dL AST 16 (14-36) U/L ALT 28 (9-52) U/L Alkaline Phosphatase 72 (38-126) U/L Total Creatine Kinase 27 L (30-135) U/L CK-MB (CK-2) 0.5 (0.0-2.4) ng/mL CK-MB (CK-2) Rel Index 1.9 Troponin I <0.012 (0.000-0.034) ng/mL Total Protein 6.3 (6.3-8.2) g/dL Albumin 3.9 (3.5-5.0) g/dL Stool Occult Blood (Negative) Blood Type Blood Type Recheck Antibody Screen Spec Expiration Date 11/07/17/17 07/17/17 Range/Units 19:54 19:54 19:54 WBC (3.8-10.6) k/uL RBC (3.80-5.40) m/uL Hgb (11.4-16.0) gm/dL Hct (34.0-46.0) % MCV (80.0-100.0) fL MCH (25.0-35.0) pg MCHC (31.0-37.0) g/dL RDW (11.5-15.5) % Plt Count (150-450) k/uL Neutrophils % % Lymphocytes % % Monocytes % % Eosinophils % % Basophils % % Neutrophils # (1.3-7.7) k/uL Lymphocytes # (1.0-4.8) k/uL Monocytes # (0-1.0) k/uL Eosinophils # (0-0.7) k/uL Basophils # (0-0.2) k/uL Hypochromasia Anisocytosis PT 10.2 (9.0-12.0) sec INR 1.0 (<1.2) APTT 22.6 (22.0-30.0) sec Sodium (137-145) mmol/L Potassium (3.5-5.1) mmol/L Chloride (98-107) mmol/L Carbon Dioxide (22-30) mmol/L Anion Gap mmol/L BUN (7-17) mg/dL Creatinine (0.52-1.04) mg/dL Est GFR (MDRD) Af Amer (>60 ml/min/1.73 sqM) Est GFR (MDRD) Non-Af (>60 ml/min/1.73 sqM) Glucose (74-99) mg/dL Calcium (8.4-10.2) mg/dL Total Bilirubin (0.2-1.3) mg/dL AST (14-36) U/L ALT (9-52) U/L Alkaline Phosphatase (38-126) U/L Total Creatine Kinase (30-135) U/L CK-MB (CK-2) (0.0-2.4) ng/mL CK-MB (CK-2) Rel Index Troponin I (0.000-0.034) ng/mL Total Protein (6.3-8.2) g/dL Albumin (3.5-5.0) g/dL Stool Occult Blood Positive H (Negative) Blood Type O Negative Blood Type Recheck No Antibody Screen NEGATIVE Spec Expiration Date 07/20/20172353 Disposition Clinical Impression: GI bleed Disposition: ADMITTED IP TO THIS HOSP Referrals: Kylee Downey MD [Primary Care Provider] - 1-2 days Decision Time: 21:28
[2017-07-17] MEDS ORDERED: NALOXONE 0.4 MG/ML 1 ML VIAL IV PRN (21:29)
[2017-07-18] MEDS: SODIUM CHLORIDE 0.9% 1,000 ML IV SCH ×2 (00:28→10:47)
[2017-07-18] MEDS: ACETAMINOPHEN IV (For NPO) 1,000 MG in EMPTY BAG 1 BAG IVPB SCH ×4 (00:28→15:01)
[2017-07-18 07:08] LABS: Glucose,Whole Blood 184 mg/dL (75-99)
[2017-07-18 08:06] LABS: Basophils # (A) 0.1 k/uL (0-0.2); Basophils % (A) 1 %; CH 26.5; CHCM 29.8; Eosinophils # (A) 0.3 k/uL (0-0.7); Eosinophils % (A) 5 %; HCT 24.4 % (34.0-46.0); HDW 3.29; HGB 7.2 gm/dL (11.4-16.0); Hypochromasia Marked; Luc # (Auto) 0.15; Luc % (Auto) 3; Lymphocytes # (A) 0.9 k/uL (1.0-4.8); Lymphocytes % (A) 18 %; MCH 26.5 pg (25.0-35.0); MCHC 29.7 g/dL (31.0-37.0); MCV 89.2 fL (80.0-100.0); Mean Platelet Volume 7.7; Monocytes # (A) 0.3 k/uL (0-1.0); Monocytes % (A) 6 %; Neutrophils # (A) 3.5 k/uL (1.3-7.7); Neutrophils % (A) 67 %; RBC 2.73 m/uL (3.80-5.40); RDW 15.1 % (11.5-15.5); WBC 5.2 k/uL (3.8-10.6)
[2017-07-18 08:14] LABS: Anion Gap 8 mmol/L; Blood Urea Nitrogen 35 mg/dL (7-17); Carbon Dioxide 22 mmol/L (22-30); Chloride 108 mmol/L (98-107); Glucose 142 mg/dL (74-99); Non-African American GFR(MDRD) >60 (>60 ml/min/1.73 sqM); Potassium 4.2 mmol/L (3.5-5.1); Sodium 138 mmol/L (137-145)
[2017-07-18] MEDS: LEVOTHYROXINE 100 MCG TAB PO SCH (10:43)
[2017-07-18] MEDS: SERTRALINE 100 MG TAB PO SCH (10:43)
[2017-07-18] MEDS: INSULIN ASPART 100 UNIT/ML 1 ML 10 ML VIAL SQ SCH ×4 (10:44→22:02)
[2017-07-18] MEDS: PANTOPRAZOLE 40 MG/10 ML VIAL IV SCH (10:44)
[2017-07-18 11:25] LABS: Glucose,Whole Blood 155 mg/dL (75-99)
--- NOTE | 2017-07-18 13:43 | CONS ---
CONSULTATION REQUESTING PHYSICIAN: Dr. Kylee Downey. REASON FOR CONSULTATION: Anemia and black tarry stools. HISTORY OF PRESENT ILLNESS: Patient is a 76-year-old pleasant white female admitted to the hospital because of black tarry stools for the last 2 days duration associated with some epigastric discomfort. 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 This procedure was done in June of 2017. Prior to that, she did have an EGD and colonoscopy by Dr. Palmer in September of 2013 that was unremarkable. She had a small bowel capsule endoscopy done in December of 2015, which showed fresh oozing in the proximal duodenum. 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 She presently complains of some epigastric discomfort. Has black tarry stools for the last 2 days duration. She denies any nausea, vomiting. No fever, chills, night sweats. By the time of admission to the hospital hemoglobin was 7.3 g/dL. PAST MEDICAL HISTORY: Is significant for hypertension, hypothyroidism, hypercholesteremia, COPD. MEDICATIONS: At home, Cozaar, Nitrostat, Zoloft, Synthroid, Singulair, omeprazole, Actos, albuterol, Flonase, Cartia, calcium, vitamin B12, glucosamine. ALLERGIES: To PENICILLIN AND SULFA. SOCIAL HISTORY: No smoking. No alcohol use. PAST SURGICAL HISTORY: Breast surgery, appendectomy, cholecystectomy, tonsillectomy. Cardiac catheterization, EGD, colonoscopy in October [address] Palmer. EGD in October of [address] Palmer that was normal. Small bowel capsule endoscopy in April of 2016 that showed oozing in the duodenum which was followed by enteroscopy with cauterization of the duodenal area, bilateral cataract surgery. FAMILY HISTORY: Father has hypertension. Mother has congestive heart failure. EXAMINATION: She appears comfortable no apparent distress. VITAL SIGNS: Stable. Blood pressure is 130/86, pulse rate 82 per minute and afebrile. HEENT examination unremarkable. Conjunctivae pink. Sclerae anicteric. Oral cavity, no lesions. NECK: No jugular venous distention or lymph node enlargement. CHEST: Clear to auscultation. HEART: Regular rate and rhythm. ABDOMEN: Soft. Bowel sounds are positive. No organomegaly. EXTREMITIES: No pedal edema. SKIN: No rashes. NEUROLOGIC: Alert and oriented x3. No focal deficits. LABS: Done at the time of admission to the hospital: Hemoglobin 7.3, WBC 6.2, platelets are normal. Her BUN and creatinine are 34 and 0.9 respectively. PT/INR is within normal limits. Stool occult blood was positive. IMPRESSION: This is a patient with recurrent anemia and intermittent black tarry stools for the last few days duration. 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 Her last EGD colonoscopy by Dr. Palmer was in 2013 that was unremarkable. At this time, most likely we are dealing with a small bowel source of occult GI blood loss. Clinically, she is hemodynamically stable and no active bleeding. Her repeat hemoglobin is 7.1 g/dL. RECOMMENDATION: 1. We will proceed with a small bowel capsule endoscopy tomorrow. 2. Serial CBC. 3. Transfuse if hemoglobin is less than 7. 4. We will follow closely during the hospital stay. Thank you for this consultation. ILIANAL / BRAULION: [id number] /
--- NOTE | 2017-07-18 13:58 | P.HPIM ---
History of Present Illness This is a pleasant 76-year-old female was admitted for upper GI bleed patient has multiple dark stools yesterday and patient still had 2.stools today morning. Patient had upper GI bleed in the past had an upper GI endoscopy earlier this month which showed AV malformation the creatinine him along with some gastritis. Patient was started on Protonix. Gastric body was consulted patient's hemoglobin now is 7.1 received 1 unit of blood transfusion if she has more dark stools today patient will be transfused 1 more unit of blood. Patient denied any lightheadedness fevers chills chest pain Review of Systems REVIEW OF SYSTEMS: CONSTITUTIONAL: No fever, no malaise, no fatigue. HEENT: No recent visual problems or hearing problems. Denied any sore throat. CARDIOVASCULAR: No chest pain, orthopnea, PND, no palpitations, no syncope. PULMONARY: No shortness of breath, no cough, no hemoptysis. GASTROINTESTINAL: As mentioned above patient does have epigastric abdominal pain and some tenderness NEUROLOGICAL: No headaches, no weakness, no numbness. HEMATOLOGICAL: Denies any bleeding or petechiae. GENITOURINARY: Denies any burning micturition, frequency, or urgency. MUSCULOSKELETAL/RHEUMATOLOGICAL: Denies any joint pain, swelling, or any muscle pain. ENDOCRINE: Denies any polyuria or polydipsia. The rest of the 14-point review of systems is negative. Past Medical History Past Medical History: Atrial Fibrillation, Atrial Flutter, Asthma, Cancer, Heart Failure, Diabetes Mellitus, GERD/Reflux, GI Bleed, Hearing Disorder / Deafness, Hyperlipidemia, Hypertension, Sleep Apnea/CPAP/BIPAP, Thyroid Disorder Additional Past Medical History / Comment(s): Hx of lower GI bleeds, blood loss anemia, iron deficiency anemia, gastric ulcer, diverticulosis, NIDDM type II, hx L breast cancer with surgery/chemo/radiation (2008), hypothryroid, C-Pap Machine, hospitalized at [facility] 06/13/17-06/15/17 for GI Bleeding and received blood transfusions., Lalo hearing aids., History of Any Multi-Drug Resistant Organisms: None Reported Past Surgical History: Appendectomy, Breast Surgery, Cholecystectomy, Orthopedic Surgery, Tonsillectomy Additional Past Surgical History / Comment(s): Left Breast Lumpectomy and lymph nodes, rt knee arthroscopy, EGDs/colonoscopies, capsule endoscopy, cauterization small bleeds in intestine per pt, bilateral cataract removals with lens implants. Past Anesthesia/Blood Transfusion Reactions: No Reported Reaction Additional Past Anesthesia/Blood Transfusion Reaction / Comment(s): Pt has received blood without reaction. She has clausterphobia. Past Psychological History: No Psychological Hx Reported Additional Psychological History / Comment(s): . Smoking Status: Former smoker Past Alcohol Use History: Unable to Obtain Additional Past Alcohol Use History / Comment(s): Pt started smoking in 1956 and quit in 1997. Smoked 1-2 PPD Past Drug Use History: None Reported - Past Family History Father Family Medical History: No Reported History Additional Family Medical History / Comment(s): . Mother Family Medical History: AFIB, Cancer, Congestive Heart Failure (CHF), Renal Disease Additional Family Medical History / Comment(s): Atrial Fibrillation and brain cancer. Medications and Allergies Home Medications Medication Instructions Recorded Confirmed Type Losartan Potassium [Cozaar] 75 mg PO DAILY 09/06/15 07/17/17 History Nitroglycerin Sl Tabs [Nitrostat] 0.4 mg SUBLINGUAL Q5M PRN 09/06/15 07/17/17 History Sertraline [Zoloft] 100 mg PO DAILY 09/06/15 07/17/17 History metFORMIN HCL 1,000 mg PO BID 09/06/15 07/17/17 History Levothyroxine Sodium [Synthroid] 200 mcg PO DAILY 10/23/16 07/17/17 History Montelukast [Singulair] 10 mg PO DAILY 10/23/16 07/17/17 History Omeprazole 40 mg PO DAILY 10/23/16 07/17/17 History Pioglitazone HCl [Actos] 30 mg PO DAILY 10/23/16 07/17/17 History Albuterol Inhaler [Ventolin Hfa 2 puff INHALATION RT-Q4H PRN 06/13/17 07/17/17 History Inhaler] Ferrous Sulfate [Iron (65 MG 325 mg PO BID 06/13/17 07/17/17 History Elemental)] Fluticasone Nasal [place] [Flonase 1 spray EA NOSTRIL DAILY 06/13/17 07/17/17 History Nasal [place]] Fluticasone Propionate [Flovent 2 puff INHALATION RT-BID 06/13/17 07/17/17 History Hfa 220MCG] Diltiazem HCl [Cartia Xt] 120 mg PO DAILY 07/08/17 07/17/17 History Vitamin D (Unknown Dose) 1 tab PO DAILY 07/08/17 07/17/17 History Calcium(Unknown Dose) 1 tab PO DAILY 07/17/17 07/17/17 History Cyanocobalamin (Vitamin B-12) 1,000 mcg PO DAILY 07/17/17 07/17/17 History [Vitamin B-12] Glucosam/Emir-Msm1/C/Robert/Bosw 1 tab PO DAILY 07/17/17 07/17/17 History [Glucosamine-Chondroitin Tablet] Vits A,C,E/Lutein/Minerals 1 tab PO HS 07/17/17 07/17/17 History [Ocuvite with Lutein Tablet] Allergies Allergy/AdvReac Type Severity Reaction Status Date / Time Penicillins Allergy Unknown Verified 07/17/17 19:01 Childhood Sulfa (Sulfonamide Allergy Rash/Hives Verified 07/17/17 18:31 Antibiotics) Physical Exam Vitals: Vital Signs Temp Pulse Pulse Resp BP BP Pulse Ox 07/18/17 07:00 96.7 F L 67 18 112/51 95 07/18/17 00:26 97.2 F L 70 16 117/70 07/17/17 23:06 97.4 F L 65 16 119/54 07/17/17 22:48 97.0 F L 74 17 133/49 95 07/17/17 22:45 97.0 F L 93 17 133/49 93 L 07/17/17 22:36 98.4 F 69 18 119/51 96 07/17/17 22:26 98 F 69 18 109/60 94 L 07/17/17 22:23 98.4 F 69 18 121/57 96 07/17/17 21:29 70 18 113/55 95 07/17/17 20:13 70 18 120/58 94 L 07/17/17 18:28 98.3 F 71 16 116/53 95 Intake and Output 07/17/17 07/18/17 07/18/17 22:59 06:59 14:59 Intake Total 0 310 Balance 0 310 Intake: Blood Product 0 310 Rc Pheresis 2 As3 Unit 0 310 [id number] Other: Voiding Method Toilet # Voids 2 Weight 100.698 kg PHYSICAL EXAMINATION: GENERAL: The patient is alert and oriented x3, not in any acute distress. Well developed, well nourished. HEENT: Pupils are round and equally reacting to light. EOMI. No scleral icterus. No conjunctival pallor. Normocephalic, atraumatic. No pharyngeal erythema. No thyromegaly. CARDIOVASCULAR: S1 and S2 present. No murmurs, rubs, or gallops. PULMONARY: Chest is clear to auscultation, no wheezing or crackles. ABDOMEN: Soft, minimal epigastric abdominal tenderness is appreciated bowel sounds no palpable organomegaly MUSCULOSKELETAL: No joint swelling or deformity. EXTREMITIES: No cyanosis, clubbing, or pedal edema. NEUROLOGICAL: Gross neurological examination did not reveal any focal deficits. SKIN: No rashes. Results CBC & Chem 7: 07/18/17 07:28 07/18/17 07:28 Labs: Abnormal Lab Results - Last 24 Hours (Table) 07/17/17 07/17/17 07/17/17 Range/Units 19:54 19:54 19:54 RBC 2.69 L (3.80-5.40) m/uL Hgb 7.3 L (11.4-16.0) gm/dL Hct 23.2 L (34.0-46.0) % MCHC (31.0-37.0) g/dL RDW 16.5 H (11.5-15.5) % Lymphocytes # (1.0-4.8) k/uL Chloride (98-107) mmol/L BUN 34 H (7-17) mg/dL Glucose 115 H (74-99) mg/dL POC Glucose (mg/dL) (75-99) mg/dL Total Bilirubin 0.1 L (0.2-1.3) mg/dL Total Creatine Kinase 27 L (30-135) U/L TSH (0.465-4.680) mIU/L Stool Occult Blood (Negative) Crossmatch 07/17/17 07/17/17 07/18/17 Range/Units 19:54 19:54 07:06 RBC (3.80-5.40) m/uL Hgb (11.4-16.0) gm/dL Hct (34.0-46.0) % MCHC (31.0-37.0) g/dL RDW (11.5-15.5) % Lymphocytes # (1.0-4.8) k/uL Chloride (98-107) mmol/L BUN (7-17) mg/dL Glucose (74-99) mg/dL POC Glucose (mg/dL) 184 H (75-99) mg/dL Total Bilirubin (0.2-1.3) mg/dL Total Creatine Kinase (30-135) U/L TSH (0.465-4.680) mIU/L Stool Occult Blood Positive H (Negative) Crossmatch See Detail 07/18/17 07/18/17 07/18/17 Range/Units 07:28 07:28 07:28 RBC 2.73 L (3.80-5.40) m/uL Hgb 7.2 L (11.4-16.0) gm/dL Hct 24.4 L (34.0-46.0) % MCHC 29.7 L (31.0-37.0) g/dL RDW (11.5-15.5) % Lymphocytes # 0.9 L (1.0-4.8) k/uL Chloride 108 H (98-107) mmol/L BUN 35 H (7-17) mg/dL Glucose 142 H (74-99) mg/dL POC Glucose (mg/dL) (75-99) mg/dL Total Bilirubin (0.2-1.3) mg/dL Total Creatine Kinase (30-135) U/L TSH 6.650 H (0.465-4.680) mIU/L Stool Occult Blood (Negative) Crossmatch 07/18/17 Range/Units 11:23 RBC (3.80-5.40) m/uL Hgb (11.4-16.0) gm/dL Hct (34.0-46.0) % MCHC (31.0-37.0) g/dL RDW (11.5-15.5) % Lymphocytes # (1.0-4.8) k/uL Chloride (98-107) mmol/L BUN (7-17) mg/dL Glucose (74-99) mg/dL POC Glucose (mg/dL) 155 H (75-99) mg/dL Total Bilirubin (0.2-1.3) mg/dL Total Creatine Kinase (30-135) U/L TSH (0.465-4.680) mIU/L Stool Occult Blood (Negative) Crossmatch Thrombosis Risk Factor Assmnt - Choose All That Apply Any of the Below Risk Factors Present?: Yes Each Factor Represents 1 point: Obesity (BMI >25) Other Risk Factors: Yes Each Risk Factor Represents 2 Points: Age 61-74 years Other congenital or acquired thrombophilia - If yes, enter type in comment: No Thrombosis Risk Factor Assessment Total Risk Factor Score: 3 Thrombosis Risk Factor Assessment Level: Moderate Risk Assessment and Plan Plan: #1 acute GI bleed most probably upper GI bleed patient on protonix and gastroenterology evaluated the patient #2 hypothyroidism patient is on high-dose of levothyroxine because of which I' ll obtain a TSH. #3 history of atrial flutter in the past patient is presently rate controlled no issues presently #4 type 2 diabetes mellitus patient will be on sliding scale insulin #5 hyperlipidemia #6 hypertension 7 #sleep apnea patient uses CPAP machine at home which she will continue here
[2017-07-18 17:13] LABS: Glucose,Whole Blood 109 mg/dL (75-99)
[2017-07-18] MEDS ORDERED: MAGNESIUM CITRATE 296 ML BOTTLE PO ONE (18:00)
[2017-07-18] MEDS: BUDESONIDE 1 MG/2 ML NEBU INHALATION SCH (18:52)
[2017-07-18 21:10] LABS: Glucose,Whole Blood 126 mg/dL (75-99)
[2017-07-18] MEDS: MONTELUKAST 10 MG TAB PO SCH (22:02)
[2017-07-19] MEDS: SODIUM CHLORIDE 0.9% 1,000 ML IV SCH ×2 (00:26→13:04)
[2017-07-19] MEDS: LEVOTHYROXINE 100 MCG TAB PO SCH ×2 (05:56→13:00)
[2017-07-19 07:35] LABS: Glucose,Whole Blood 175 mg/dL (75-99)
[2017-07-19] MEDS ORDERED: SIMETHICONE 40 MG/0.6 ML DROPS 2,000 MG/30 ML BOTTLE PO ONE (07:42)
[2017-07-19 07:57] LABS: Anion Gap 7 mmol/L; Blood Urea Nitrogen 21 mg/dL (7-17); Carbon Dioxide 23 mmol/L (22-30); Chloride 108 mmol/L (98-107); Glucose 153 mg/dL (74-99); Non-African American GFR(MDRD) >60 (>60 ml/min/1.73 sqM); Potassium 4.2 mmol/L (3.5-5.1); Sodium 138 mmol/L (137-145)
[2017-07-19 08:25] LABS: Anisocytosis Slight; CH 26.2; CHCM 30.4; HCT 25.6 % (34.0-46.0); HDW 3.46; HGB 8.1 gm/dL (11.4-16.0); Hypochromasia Marked; MCH 27.6 pg (25.0-35.0); MCHC 31.8 g/dL (31.0-37.0); MCV 86.6 fL (80.0-100.0); Mean Platelet Volume 7.9; Poikilocytosis Slight; RBC 2.95 m/uL (3.80-5.40); RDW 16.6 % (11.5-15.5); WBC 5.6 k/uL (3.8-10.6)
[2017-07-19] MEDS: BUDESONIDE 1 MG/2 ML NEBU INHALATION SCH ×2 (08:43→19:56)
[2017-07-19] MEDS: INSULIN ASPART 100 UNIT/ML 1 ML 10 ML VIAL SQ SCH ×4 (09:38→21:35)
[2017-07-19] MEDS: FLUTICASONE 50MCG/SPRAY NASAL 16GM EA NOSTRIL SCH (09:39)
[2017-07-19] MEDS: PANTOPRAZOLE 40 MG/10 ML VIAL IV SCH (09:39)
--- NOTE | 2017-07-19 09:45 | P.PN ---
Subjective Progress Note Date: 07/19/17 Principal diagnosis: 76-year-old female admitted with black colored bowel movements epigastric pain 2 days. Recent upper endoscopy June performed by Dr. 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 Presently undergoing small bowel capsule evaluation this morning. No current bleeding. Patient had a bowel movement this morning green in color. Objective - Vital Signs Vital signs: Vital Signs Temp 97.0 F L 07/19/17 07:00 Pulse 64 07/19/17 07:00 Resp 18 07/19/17 07:00 BP 117/60 07/19/17 07:00 Pulse Ox 96 07/19/17 07:00 Intake & Output 07/18/17 07/19/17 07/19/17 18:59 06:59 18:59 Intake Total 0 810 Balance 0 810 Intake: Intake, IV Titration 300 Amount Sodium Chloride 0.9% 1, 300 000 ml @ 75 mls/hr IV . [id number] [facility] Rx#:[id number] Oral 200 Blood Product 0 310 Rc Pheresis 2 As3 Unit 0 310 [id number] Other: # Voids 2 # Bowel Movements 4 4 - Exam General appearance: The patient is alert, oriented, in no acute distress. HET: Head is normocephalic and atraumatic. Pupils are equal and reactive. Oropharynx is clear without lesions. Neck: Supple without lymphadenopathy. Trachea midline. Heart: S1 S2. Regular rate and rhythm. Lungs: No crackles or wheezes are heard. Abdomen: Soft, nontender, nondistended with bowel sounds. No peritoneal signs. No palpable organomegaly or masses. Extremities: Normal skin color and turgor. No cyanosis, rash, ulceration, clubbing, or edema. Radial and pedal pulses are 2/4 bilaterally. Neurological: No focal deficits. Strength and sensation are grossly intact. - Labs CBC & Chem 7: 07/19/17 07:23 07/19/17 07:23 Labs: Abnormal Lab Results - Last 24 Hours (Table) 07/17/17 07/18/17 07/18/17 Range/Units 19:54 07:28 07:28 RBC 2.73 L (3.80-5.40) m/uL Hgb 7.2 L (11.4-16.0) gm/dL Hct 24.4 L (34.0-46.0) % MCHC 29.7 L (31.0-37.0) g/dL Lymphocytes # 0.9 L (1.0-4.8) k/uL Chloride 108 H (98-107) mmol/L BUN 35 H (7-17) mg/dL Glucose 142 H (74-99) mg/dL POC Glucose (mg/dL) (75-99) mg/dL TSH (0.465-4.680) mIU/L Crossmatch See Detail 07/18/17 07/18/17 07/18/17 Range/Units 07:28 11:23 17:11 RBC (3.80-5.40) m/uL Hgb (11.4-16.0) gm/dL Hct (34.0-46.0) % MCHC (31.0-37.0) g/dL Lymphocytes # (1.0-4.8) k/uL Chloride (98-107) mmol/L BUN (7-17) mg/dL Glucose (74-99) mg/dL POC Glucose (mg/dL) 155 H 109 H (75-99) mg/dL TSH 6.650 H (0.465-4.680) mIU/L Crossmatch 07/18/17 07/19/17 Range/Units 21:02 07:17 RBC (3.80-5.40) m/uL Hgb (11.4-16.0) gm/dL Hct (34.0-46.0) % MCHC (31.0-37.0) g/dL Lymphocytes # (1.0-4.8) k/uL Chloride (98-107) mmol/L BUN (7-17) mg/dL Glucose (74-99) mg/dL POC Glucose (mg/dL) 126 H 175 H (75-99) mg/dL TSH (0.465-4.680) mIU/L Crossmatch Assessment and Plan (1) GI bleed Narrative/Plan: Suspect small bowel source with history of bleeding AVMs in the duodenum and proximal jejunum status post cautery recent upper endoscopy June 2017 identified bleeding AVM fourth part of the duodenum status post cautery. Current Visit: Yes Status: Acute Priority: High Code(s): K92.2 - GASTROINTESTINAL HEMORRHAGE, UNSPECIFIED SNOMED Code(s): 02189292 (2) Acute blood loss anemia Current Visit: Yes Status: Acute Code(s): D62 - ACUTE POSTHEMORRHAGIC ANEMIA SNOMED Code(s): 499096502 (3) Arteriovenous malformation small bowel Current Visit: Yes Status: Acute Code(s): Q27.33 - ARTERIOVENOUS MALFORMATION OF DIGESTIVE SYSTEM VESSEL SNOMED Code(s): 999446855 Plan: 1. CBC monitoring. 2. IV Protonix 40 mg twice daily. Clear liquid diet after capsule study is completed. Nothing by mouth after midnight for possible endoscopy tomorrow. 3. Await results of small bowel capsule. Possible repeat upper endoscopy possible enteroscopy based on small bowel capsule findings. 4. Will follow closely with you. Assessment and plan a care discussed with Dr. Valentine
[2017-07-19 12:00] LABS: Glucose,Whole Blood 145 mg/dL (75-99)
[2017-07-19] MEDS: SERTRALINE 100 MG TAB PO SCH (13:00)
[2017-07-19] MEDS: MONTELUKAST 10 MG TAB PO SCH ×2 (13:29→21:35)
[2017-07-19 17:10] LABS: Glucose,Whole Blood 126 mg/dL (75-99)
--- NOTE | 2017-07-19 17:45 | P.PN ---
Subjective Progress Note Date: 07/19/17 progress note being dictated for Dr. Lentz Interval history:This is a pleasant 76-year-old female was admitted for upper GI bleed patient has multiple dark stools yesterday and patient still had 2.stools today morning. Patient had upper GI bleed in the past had an upper GI endoscopy earlier this month which showed AV malformation the creatinine him along with some gastritis. Patient was started on Protonix. Gastric body was consulted patient's hemoglobin now is 7.1 received 1 unit of blood transfusion if she has more dark stools today patient will be transfused 1 more unit of blood. Patient denied any lightheadedness fevers chills chest pain Review of Systems REVIEW OF SYSTEMS: CONSTITUTIONAL: No fever, no malaise, no fatigue. HEENT: No recent visual problems or hearing problems. Denied any sore throat. CARDIOVASCULAR: No chest pain, orthopnea, PND, no palpitations, no syncope. PULMONARY: No shortness of breath, no cough, no hemoptysis. GASTROINTESTINAL: As mentioned above patient does have epigastric abdominal pain and some tenderness NEUROLOGICAL: No headaches, no weakness, no numbness. HEMATOLOGICAL: Denies any bleeding or petechiae. GENITOURINARY: Denies any burning micturition, frequency, or urgency. MUSCULOSKELETAL/RHEUMATOLOGICAL: Denies any joint pain, swelling, or any muscle pain. ENDOCRINE: Denies any polyuria or polydipsia. The rest of the 14-point review of systems is negative. 07/19/2017 maintained on PPI, clear liquids. earlier today having multiple green bms, but this afternoon reports black stools. Currently finishing up capsule endoscopy.hemoglobin 8.1.denies dizziness, lightheadedness, or focal deficits. Denies chest pain, palpitations or shortness of breath.denies abdominal pain. Objective - Vital Signs Vital signs: Vital Signs Temp 97.0 F L 07/19/17 07:00 Pulse 64 07/19/17 07:00 Resp 18 07/19/17 07:00 BP 117/60 07/19/17 07:00 Pulse Ox 96 07/19/17 07:00 Intake & Output 07/18/17 07/19/17 07/19/17 18:59 06:59 18:59 Intake Total 0 810 Balance 0 810 Intake: Intake, IV Titration 300 Amount Sodium Chloride 0.9% 1, 300 000 ml @ 75 mls/hr IV . [id number] [facility] Rx#:[id number] Oral 200 Blood Product 0 310 Rc Pheresis 2 As3 Unit 0 310 [id number] Other: # Voids 2 # Bowel Movements 4 4 - Exam GENERAL: The patient is alert and oriented x3, not in any acute distress. Well developed, well nourished. HEENT: Pupils are round and equally reacting to light. EOMI. No scleral icterus. No conjunctival pallor. Normocephalic, atraumatic. No pharyngeal erythema. No thyromegaly. CARDIOVASCULAR: S1 and S2 present. No murmurs, rubs, or gallops. PULMONARY: Chest is clear to auscultation, no wheezing or crackles. ABDOMEN: Soft, minimal epigastric abdominal tenderness is appreciated bowel sounds no palpable organomegaly MUSCULOSKELETAL: No joint swelling or deformity. EXTREMITIES: No cyanosis, clubbing, or pedal edema. NEUROLOGICAL: Gross neurological examination did not reveal any focal deficits. SKIN: No rashes. - Labs CBC & Chem 7: 07/19/17 07:23 07/19/17 07:23 Labs: Abnormal Lab Results - Last 24 Hours (Table) 07/17/17 07/18/17 07/18/17 Range/Units 19:54 07:28 11:23 RBC (3.80-5.40) m/uL Hgb (11.4-16.0) gm/dL Hct (34.0-46.0) % RDW (11.5-15.5) % Chloride (98-107) mmol/L BUN (7-17) mg/dL Glucose (74-99) mg/dL POC Glucose (mg/dL) 155 H (75-99) mg/dL TSH 6.650 H (0.465-4.680) mIU/L Crossmatch See Detail 07/18/17 07/18/17 07/19/17 Range/Units 17:11 21:02 07:17 RBC (3.80-5.40) m/uL Hgb (11.4-16.0) gm/dL Hct (34.0-46.0) % RDW (11.5-15.5) % Chloride (98-107) mmol/L BUN (7-17) mg/dL Glucose (74-99) mg/dL POC Glucose (mg/dL) 109 H 126 H 175 H (75-99) mg/dL TSH (0.465-4.680) mIU/L Crossmatch 07/19/17 07/19/17 Range/Units 07:23 07:23 RBC 2.95 L (3.80-5.40) m/uL Hgb 8.1 L (11.4-16.0) gm/dL Hct 25.6 L (34.0-46.0) % RDW 16.6 H (11.5-15.5) % Chloride 108 H (98-107) mmol/L BUN 21 H (7-17) mg/dL Glucose 153 H (74-99) mg/dL POC Glucose (mg/dL) (75-99) mg/dL TSH (0.465-4.680) mIU/L Crossmatch Assessment and Plan Assessment: #1 acute GI bleed most probably upper GI bleed #2 hypothyroidism patient is on high-dose of levothyroxine,TSH pending. #3 history of atrial flutter in the past patient is presently rate controlled #4 type 2 diabetes mellitus #5 hyperlipidemia #6 hypertension 7 #sleep apnea patient uses CPAP machine at home plan: Continue on current medication regime, monitoring. Close monitoring of CBC. Currently completing capsule endoscopy with further recommendations pending from GI.Possiblel Endoscopy tomorrow. The impression and plan of care has been dictated as directed. : I performed a history and examination of this patient, discussed the same with the dictator. I agree with the dictator's note ,documented as a scribe. Any additional findings or plans will be noted.
[2017-07-19] MEDS ORDERED: ACETAMINOPHEN IV (For NPO) 1,000 MG in EMPTY BAG 1 BAG IVPB STA (18:21)
[2017-07-19] MEDS: ALBUTEROL NEBULIZED 2.5 MG/3 ML INHALATION PRN (19:56)
[2017-07-19 20:47] LABS: Glucose,Whole Blood 134 mg/dL (75-99)
[2017-07-20] MEDS: SODIUM CHLORIDE 0.9% 1,000 ML IV SCH ×2 (04:19→17:39)
[2017-07-20] MEDS: ACETAMINOPHEN IV (For NPO) 1,000 MG in EMPTY BAG 1 BAG IVPB SCH ×4 (05:39→17:41)
[2017-07-20] MEDS: LEVOTHYROXINE 100 MCG TAB PO SCH (06:21)
[2017-07-20] MEDS: INSULIN ASPART 100 UNIT/ML 1 ML 10 ML VIAL SQ SCH ×5 (07:30→21:16)
[2017-07-20 07:41] LABS: Glucose,Whole Blood 162 mg/dL (75-99)
[2017-07-20] MEDS: PANTOPRAZOLE 40 MG/10 ML VIAL IV SCH (07:58)
[2017-07-20] MEDS: FLUTICASONE 50MCG/SPRAY NASAL 16GM EA NOSTRIL SCH (07:58)
[2017-07-20] MEDS: SERTRALINE 100 MG TAB PO SCH (07:59)
[2017-07-20] MEDS: BUDESONIDE 1 MG/2 ML NEBU INHALATION SCH ×2 (08:38→19:57)
--- NOTE | 2017-07-20 12:04 | P.DS ---
Providers Date of admission: 07/17/17 21:30 Attending physician: Kenny Garza Consults: 07/17/17 21:30 Consult Physician Urgent Consulting Provider: Darlene Gomez Consult Reason/Comments: gi hemorrhage Do you want consulting provider notified?: Yes Primary care physician: Kylee [facility] Course: This is a pleasant 76-year-old female was admitted for upper GI bleed patient has multiple dark stools yesterday and patient still had 2.stools today morning. Patient had upper GI bleed in the past had an upper GI endoscopy earlier this month which showed AV malformation the creatinine him along with some gastritis. Patient was started on Protonix. Gastric body was consulted patient's hemoglobin now is 7.1 received 1 unit of blood transfusion if she has more dark stools today patient will be transfused 1 more unit of blood. Patient denied any lightheadedness fevers chills chest pain 07/20/2017 Patient's capsule study will be reviewed by gastroneurology that is okay patient will be discharged today patient has 2 normal bowel movements today. GENERAL: The patient is alert and oriented x3, not in any acute distress. Well developed, well nourished. HEENT: Pupils are round and equally reacting to light. EOMI. No scleral icterus. No conjunctival pallor. Normocephalic, atraumatic. No pharyngeal erythema. No thyromegaly. CARDIOVASCULAR: S1 and S2 present. No murmurs, rubs, or gallops. PULMONARY: Chest is clear to auscultation, no wheezing or crackles. ABDOMEN: Soft, minimal epigastric abdominal tenderness is appreciated bowel sounds no palpable organomegaly MUSCULOSKELETAL: No joint swelling or deformity. EXTREMITIES: No cyanosis, clubbing, or pedal edema. NEUROLOGICAL: Gross neurological examination did not reveal any focal deficits. SKIN: No rashes. #1 acute GI bleed most probably upper GI bleed , gastritis or AV malformation #2 hypothyroidism patient is on high-dose of levothyroxine,TSH pending. #3 history of atrial flutter in the past patient is presently rate controlled #4 type 2 diabetes mellitus #5 hyperlipidemia #6 hypertension 7 #sleep apnea patient uses CPAP machine at home Plan - Discharge Summary New Discharge Prescriptions: Discontinued Losartan Potassium [Cozaar] 75 mg PO DAILY No Action Nitroglycerin Sl Tabs [Nitrostat] 0.4 mg SUBLINGUAL Q5M PRN PRN Reason: Chest Pain metFORMIN HCL 1,000 mg PO BID Sertraline [Zoloft] 100 mg PO DAILY Pioglitazone HCl [Actos] 30 mg PO DAILY Omeprazole 40 mg PO DAILY Montelukast [Singulair] 10 mg PO DAILY Levothyroxine Sodium [Synthroid] 200 mcg PO DAILY Fluticasone Nasal [place] [Flonase Nasal [place]] 1 spray EA NOSTRIL DAILY Ferrous Sulfate [Iron (65 MG Elemental)] 325 mg PO BID Fluticasone Propionate [Flovent Hfa 220MCG] 2 puff INHALATION RT-BID Albuterol Inhaler [Ventolin Hfa Inhaler] 2 puff INHALATION RT-Q4H PRN PRN Reason: Shortness Of Breath Diltiazem HCl [Cartia Xt] 120 mg PO DAILY Vitamin D (Unknown Dose) 1 tab PO DAILY Calcium(Unknown Dose) 1 tab PO DAILY Cyanocobalamin (Vitamin B-12) [Vitamin B-12] 1,000 mcg PO DAILY Glucosam/Emir-Msm1/C/Robert/Bosw [Glucosamine-Chondroitin Tablet] 1 tab PO DAILY Vits A,C,E/Lutein/Minerals [Ocuvite with Lutein Tablet] 1 tab PO HS Discharge Medication List Nitroglycerin Sl Tabs [Nitrostat] 0.4 mg SUBLINGUAL Q5M PRN 09/06/15 [History] Sertraline [Zoloft] 100 mg PO DAILY 09/06/15 [History] metFORMIN HCL 1,000 mg PO BID 09/06/15 [History] Levothyroxine Sodium [Synthroid] 200 mcg PO DAILY 10/23/16 [History] Montelukast [Singulair] 10 mg PO DAILY 10/23/16 [History] Omeprazole 40 mg PO DAILY 10/23/16 [History] Pioglitazone HCl [Actos] 30 mg PO DAILY 10/23/16 [History] Albuterol Inhaler [Ventolin Hfa Inhaler] 2 puff INHALATION RT-Q4H PRN 06/13/17 [ History] Ferrous Sulfate [Iron (65 MG Elemental)] 325 mg PO BID 06/13/17 [History] Fluticasone Nasal [place] [Flonase Nasal [place]] 1 spray EA NOSTRIL DAILY 06/13/17 [History] Fluticasone Propionate [Flovent Hfa 220MCG] 2 puff INHALATION RT-BID 06/13/17 [ History] Diltiazem HCl [Cartia Xt] 120 mg PO DAILY 07/08/17 [History] Vitamin D (Unknown Dose) 1 tab PO DAILY 07/08/17 [History] Calcium(Unknown Dose) 1 tab PO DAILY 07/17/17 [History] Cyanocobalamin (Vitamin B-12) [Vitamin B-12] 1,000 mcg PO DAILY 07/17/17 [ History] Glucosam/Emir-Msm1/C/Robert/Bosw [Glucosamine-Chondroitin Tablet] 1 tab PO DAILY 07/17/17 [History] Vits A,C,E/Lutein/Minerals [Ocuvite with Lutein Tablet] 1 tab PO HS 07/17/17 [ History] Follow up Appointment(s)/Referral(s): Kylee Downey MD [Primary Care Provider] - 3 Days Discharge Disposition: HOME SELF-CARE
[2017-07-20 12:09] LABS: Glucose,Whole Blood 168 mg/dL (75-99)
[2017-07-20 17:15] LABS: Glucose,Whole Blood 131 mg/dL (75-99)
[2017-07-20 20:57] LABS: Glucose,Whole Blood 204 mg/dL (75-99)
[2017-07-20] MEDS: MONTELUKAST 10 MG TAB PO SCH (21:16)
[2017-07-21] MEDS: SODIUM CHLORIDE 0.9% 1,000 ML IV SCH ×2 (05:09→16:50)
[2017-07-21 07:50] LABS: Glucose,Whole Blood 159 mg/dL (75-99)
[2017-07-21] MEDS: INSULIN ASPART 100 UNIT/ML 1 ML 10 ML VIAL SQ SCH ×4 (07:53→21:47)
[2017-07-21] MEDS: BUDESONIDE 1 MG/2 ML NEBU INHALATION SCH ×2 (07:53→20:00)
[2017-07-21] MEDS: FLUTICASONE 50MCG/SPRAY NASAL 16GM EA NOSTRIL SCH (08:10)
[2017-07-21] MEDS: PANTOPRAZOLE 40 MG/10 ML VIAL IV SCH (08:10)
[2017-07-21] MEDS: LEVOTHYROXINE 100 MCG TAB PO SCH (08:11)
[2017-07-21] MEDS: SERTRALINE 100 MG TAB PO SCH (08:11)
[2017-07-21 10:37] LABS: Basophils % (A) 0 %; CH 26.9; Eosinophils # (A) 0.2 k/uL (0-0.7); Eosinophils % (A) 4 %; HCT 22.3 % (34.0-46.0); HDW 3.69; HGB 7.1 gm/dL (11.4-16.0); Hypochromasia Moderate; Luc # (Auto) 0.14; Luc % (Auto) 3; Lymphocytes # (A) 0.8 k/uL (1.0-4.8); Lymphocytes % (A) 17 %; MCH 26.8 pg (25.0-35.0); MCHC 31.8 g/dL (31.0-37.0); MCV 84.3 fL (80.0-100.0); Mean Platelet Volume 7.7; Monocytes # (A) 0.3 k/uL (0-1.0); Monocytes % (A) 5 %; Neutrophils # (A) 3.6 k/uL (1.3-7.7); Neutrophils % (A) 71 %; Poikilocytosis Slight; RBC 2.64 m/uL (3.80-5.40); RDW 15.4 % (11.5-15.5); WBC 5.1 k/uL (3.8-10.6); WBC (Perox) 5.32
[2017-07-21] MEDS ORDERED: GLUCAGON 1 MG/ML VIAL ONE (11:41)
[2017-07-21] MEDS ORDERED: PROPOFOL 10 MG/ML 20 ML VIAL IV ONE (11:41)
[2017-07-21] MEDS ORDERED: LACTATED RINGERS 1,000 ML IV ONE (11:46)
--- NOTE | 2017-07-21 12:15 | P.PN ---
Subjective This is a pleasant 76-year-old female was admitted for upper GI bleed patient has multiple dark stools yesterday and patient still had 2.stools today morning. Patient had upper GI bleed in the past had an upper GI endoscopy earlier this month which showed AV malformation the creatinine him along with some gastritis. Patient was started on Protonix. Gastric body was consulted patient's hemoglobin now is 7.1 received 1 unit of blood transfusion if she has more dark stools today patient will be transfused 1 more unit of blood. Patient denied any lightheadedness fevers chills chest pain 07/20/2017 Patient's capsule study will be reviewed by gastroneurology that is okay patient will be discharged today patient has 2 normal bowel movements today. Jul 21 2017 Patient has multiple bowel movements which are were dark yesterday I do not have an official report of capsule endoscopy, patient is going for upper GI endoscopy with enteroscopy today. Patient's immobility 7.1 will transfuse 1 unit of blood Objective - Vital Signs Vital signs: Vital Signs Temp 96.8 F L 07/21/17 07:00 Pulse 76 07/21/17 08:03 Resp 20 07/21/17 07:00 BP 120/53 07/21/17 07:00 Pulse Ox 95 07/21/17 07:00 Intake & Output 07/20/17 07/21/17 07/21/17 18:59 06:59 18:59 Intake Total 320 475 Balance 320 475 Intake: Oral 320 475 Other: # Voids 3 2 - Exam PHYSICAL EXAMINATION: GENERAL: The patient is alert and oriented x3, not in any acute distress. Well developed, well nourished. HEENT: Pupils are round and equally reacting to light. EOMI. No scleral icterus. She does have conjunctival pallor. Normocephalic, atraumatic. No pharyngeal erythema. No thyromegaly. CARDIOVASCULAR: S1 and S2 present. No murmurs, rubs, or gallops. PULMONARY: Chest is clear to auscultation, no wheezing or crackles. ABDOMEN: Soft, nontender, nondistended, normoactive bowel sounds. No palpable organomegaly. MUSCULOSKELETAL: No joint swelling or deformity. EXTREMITIES: No cyanosis, clubbing, or pedal edema. NEUROLOGICAL: Gross neurological examination did not reveal any focal deficits. SKIN: No rashes. - Labs CBC & Chem 7: 11/19/17 09:33 07/19/17 07:23 Labs: Abnormal Lab Results - Last 24 Hours (Table) 07/20/17 07/20/17 07/21/17 Range/Units 17:07 20:46 07:45 RBC (3.80-5.40) m/uL Hgb (11.4-16.0) gm/dL Hct (34.0-46.0) % Lymphocytes # (1.0-4.8) k/uL POC Glucose (mg/dL) 131 H 204 H 159 H (75-99) mg/dL 07/21/17 Range/Units 09:33 RBC 2.64 L (3.80-5.40) m/uL Hgb 7.1 L (11.4-16.0) gm/dL Hct 22.3 L (34.0-46.0) % Lymphocytes # 0.8 L (1.0-4.8) k/uL POC Glucose (mg/dL) (75-99) mg/dL Assessment and Plan Plan: #1 acute GI bleed most probably upper GI bleed patient on protonix and gastroenterology evaluated the patient, patient is going for upper GI endoscopy with enteroscopy for possibility of small intestinal AV malformation which are bleeding #2 hypothyroidism patient is on high-dose of levothyroxine because of which I' ll obtain a TSH. #3 history of atrial flutter in the past patient is presently rate controlled no issues presently #4 type 2 diabetes mellitus patient will be on sliding scale insulin #5 hyperlipidemia #6 hypertension 7 #sleep apnea patient uses CPAP machine at home which she will continue here
--- NOTE | 2017-07-21 13:31 | P.PCN ---
Date of Procedure: 07/21/17 Procedure(s) Performed: Procedure: Esophagogastroduodenoscopy and small bowel enteroscopy with finding of bleeding AV malformation in the proximal jejunum treated with argon plasma coagulation and with resolution clip application for bleeding control. Preoperative diagnosis: GI bleeding and anemia and abnormal capsule endoscopy. Postoperative diagnosis: Bleeding AV malformation in the proximal jejunum controlled by using argon plasma coagulation and by applying a resolution clip. Preparation sedation: Was provided by anesthesia. Brief clinical history: The patient is a 76-year-old female who was admitted July 18 with anemia and dark stools. The patient had upper endoscopy as outpatient July 10 part of the workup of iron deficiency anemia and was found to have a nonbleeding AV malformation in the third part of the duodenum which was treated with argon plasma coagulation. The patient had both upper endoscopy and colonoscopy with Dr Palmer last year and the duodenal AV malformation was found and was subsequently treated. The patient was transfused after this admission and a capsule endoscopy was performed which revealed evidence of bleeding in the jejunum/ileum with dark and fresh blood noted. The patient continued to pass dark stools in the hospital and her hemoglobin has dropped to 7.1 this morning for which she received one unit of packed cells. This evaluation is scheduled to assess the site of bleeding and provide intervention. The details are summarized in the history and physical and dictated consultation and progress notes. Procedure: With the patient on her left lateral decubitus position and after informed consent and adequate sedation, I passed the Olympus PCF Q 180AL pediatric video colonoscope through the cricopharyngeus down the esophagus then passed it into the stomach and through the pylorus into the duodenum. No obvious pathology was noted in the esophagus, stomach or duodenum. I then continued to advance the endoscope to the transverse duodenum and into the jejunum and I was able to advance as far as the endoscope allowed and I estimate that we were able to get to the proximal/mid ileum. There was a spontaneously bleeding AV malformation in the proximal jejunum but no other obvious abnormalities were seen elsewhere in the small bowel examined. The AV malformation was spontaneously bleeding and the bleeding was not controlled using 40 watt argon plasma coagulation using the straight catheter. I was able to finally control the bleeding using the resolution clip. I obtained pictures to show the area of treatment at the conclusion of the exam then the endoscope was withdrawn. The patient tolerated the procedure well. Plan: I summarized the findings to the patient. Will keep NPO then for tonight will allow clear liquids. Would monitor her blood counts closely and further plans will be made based on her course.
[2017-07-21 14:36] LABS: Glucose,Whole Blood 180 mg/dL (75-99)
[2017-07-21 16:54] LABS: Glucose,Whole Blood 127 mg/dL (75-99)
[2017-07-21 20:34] LABS: Glucose,Whole Blood 134 mg/dL (75-99)
[2017-07-21] MEDS: MONTELUKAST 10 MG TAB PO SCH (21:49)
[2017-07-22] MEDS: LEVOTHYROXINE 100 MCG TAB PO SCH (06:45)
[2017-07-22] MEDS: BUDESONIDE 1 MG/2 ML NEBU INHALATION SCH ×2 (08:10→19:22)
[2017-07-22] MEDS: ALBUTEROL NEBULIZED 2.5 MG/3 ML INHALATION PRN ×2 (08:10→19:22)
[2017-07-22 08:47] LABS: CH 27.6; CHCM 32.6; HCT 27.4 % (34.0-46.0); HDW 4.18; Hypochromasia Slight; MCH 26.8 pg (25.0-35.0); MCHC 31.6 g/dL (31.0-37.0); Mean Platelet Volume 8.2; Poikilocytosis Moderate; RBC 3.23 m/uL (3.80-5.40); WBC (Perox) 9.73
[2017-07-22 08:48] LABS: HGB 8.7 gm/dL (11.4-16.0)
[2017-07-22] MEDS: SODIUM CHLORIDE 0.9% 1,000 ML IV SCH ×2 (08:53→21:45)
[2017-07-22] MEDS: INSULIN ASPART 100 UNIT/ML 1 ML 10 ML VIAL SQ SCH ×4 (08:53→21:45)
[2017-07-22] MEDS: FLUTICASONE 50MCG/SPRAY NASAL 16GM EA NOSTRIL SCH (08:53)
[2017-07-22] MEDS: PANTOPRAZOLE 40 MG/10 ML VIAL IV SCH (08:53)
[2017-07-22] MEDS: SERTRALINE 100 MG TAB PO SCH (08:54)
[2017-07-22 08:56] LABS: Glucose,Whole Blood 166 mg/dL (75-99)
[2017-07-22 09:03] LABS: Add Differential Manual Differential
[2017-07-22 09:12] LABS: Myelocytes % 1 %; Nucleated Red Blood Cells 0 /100 WBC (0-0); Total Cells Counted 200
[2017-07-22 09:14] LABS: Manual Review Performed
[2017-07-22 09:21] LABS: Polychromasia Present
[2017-07-22 09:22] LABS: Toxic Granulation Present; Toxic Vacuolation Present
[2017-07-22 12:09] LABS: Glucose,Whole Blood 162 mg/dL (75-99)
--- NOTE | 2017-07-22 12:11 | P.DS ---
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 controlled by using argon plasma coagulation and applying a resolution clip #2 hypothyroidism patient is on high-dose of levothyroxine #3 history of atrial flutter in the past patient is presently rate controlled no issues presently #4 type 2 diabetes mellitus patient will be on sliding scale insulin #5 hyperlipidemia #6 hypertension 7 #sleep apnea patient uses CPAP machine at home which she will continue here Hospital COurse:This is a pleasant 76-year-old female was admitted for upper GI bleed.Patient had upper GI bleed in the past, had an upper GI endoscopy earlier this month which showed AV malformation along with some gastritis. Patient was started on Protonix.Evaluated by GI. Received a couple of units ofo RBCs. 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 Diet advanced, tolerated well, denies abdominal pain or cramping. Cleared by GI for discharge. Patient is being discharged home in a stable condition with fair prognosis. The impression and plan of care has been dictated as directed. : I performed a history and examination of this patient, discussed the same with the dictator. I agree with the dictator's note ,documented as a scribe. Any additional findings or plans will be noted. Consults: 07/17/17 21:30 Consult Physician Urgent Consulting Provider: Darlene Gomez Consult Reason/Comments: gi hemorrhage Do you want consulting provider notified?: Yes Primary care physician: Kylee Downey Plan - Discharge Summary New Discharge Prescriptions: Continue Nitroglycerin Sl Tabs [Nitrostat] 0.4 mg SUBLINGUAL Q5M PRN PRN Reason: Chest Pain metFORMIN HCL 1,000 mg PO BID Sertraline [Zoloft] 100 mg PO DAILY Pioglitazone HCl [Actos] 30 mg PO DAILY Omeprazole 40 mg PO DAILY Montelukast [Singulair] 10 mg PO DAILY Levothyroxine Sodium [Synthroid] 200 mcg PO DAILY Fluticasone Nasal [place] [Flonase Nasal [place]] 1 spray EA NOSTRIL DAILY Ferrous Sulfate [Iron (65 MG Elemental)] 325 mg PO BID Fluticasone Propionate [Flovent Hfa 220MCG] 2 puff INHALATION RT-BID Albuterol Inhaler [Ventolin Hfa Inhaler] 2 puff INHALATION RT-Q4H PRN PRN Reason: Shortness Of Breath Diltiazem HCl [Cartia Xt] 120 mg PO DAILY Vitamin D (Unknown Dose) 1 tab PO DAILY Calcium(Unknown Dose) 1 tab PO DAILY Cyanocobalamin (Vitamin B-12) [Vitamin B-12] 1,000 mcg PO DAILY Glucosam/Emir-Msm1/C/Robert/Bosw [Glucosamine-Chondroitin Tablet] 1 tab PO DAILY Vits A,C,E/Lutein/Minerals [Ocuvite with Lutein Tablet] 1 tab PO HS Discontinued Losartan Potassium [Cozaar] 75 mg PO DAILY Discharge Medication List Nitroglycerin Sl Tabs [Nitrostat] 0.4 mg SUBLINGUAL Q5M PRN 09/06/15 [History] Sertraline [Zoloft] 100 mg PO DAILY 09/06/15 [History] metFORMIN HCL 1,000 mg PO BID 09/06/15 [History] Levothyroxine Sodium [Synthroid] 200 mcg PO DAILY 10/23/16 [History] Montelukast [Singulair] 10 mg PO DAILY 10/23/16 [History] Omeprazole 40 mg PO DAILY 10/23/16 [History] Pioglitazone HCl [Actos] 30 mg PO DAILY 10/23/16 [History] Albuterol Inhaler [Ventolin Hfa Inhaler] 2 puff INHALATION RT-Q4H PRN 06/13/17 [ History] Ferrous Sulfate [Iron (65 MG Elemental)] 325 mg PO BID 06/13/17 [History] Fluticasone Nasal [place] [Flonase Nasal [place]] 1 spray EA NOSTRIL DAILY 06/13/17 [History] Fluticasone Propionate [Flovent Hfa 220MCG] 2 puff INHALATION RT-BID 06/13/17 [ History] Diltiazem HCl [Cartia Xt] 120 mg PO DAILY 07/08/17 [History] Vitamin D (Unknown Dose) 1 tab PO DAILY 07/08/17 [History] Calcium(Unknown Dose) 1 tab PO DAILY 07/17/17 [History] Cyanocobalamin (Vitamin B-12) [Vitamin B-12] 1,000 mcg PO DAILY 07/17/17 [ History] Glucosam/Emir-Msm1/C/Robert/Bosw [Glucosamine-Chondroitin Tablet] 1 tab PO DAILY 07/17/17 [History] Vits A,C,E/Lutein/Minerals [Ocuvite with Lutein Tablet] 1 tab PO HS 07/17/17 [ History] Follow up Appointment(s)/Referral(s): Varun Valentine MD [STAFF PHYSICIAN] - 2 Weeks Kylee Downey MD [Primary Care Provider] - 3 Days Ambulatory/Diagnostic Orders: Complete Blood Count w/diff [LAB.AMB] Time Frame: 3 Days, Location: Determined By Patient Activity/Diet/Wound Care/Special Instructions: Diet soft [place], consistent carb Activity: Limited until follow up Discharge Disposition: HOME SELF-CARE
[2017-07-22 16:56] LABS: Glucose,Whole Blood 148 mg/dL (75-99)
[2017-07-22 19:29] LABS: Basophils % (A) 0 %; CH 27.5; CHCM 32.2; Eosinophils # (A) 0.2 k/uL (0-0.7); Eosinophils % (A) 3 %; HCT 24.3 % (34.0-46.0); HDW 4.11; HGB 7.6 gm/dL (11.4-16.0); Hypochromasia Moderate; Luc # (Auto) 0.15; Luc % (Auto) 2; Lymphocytes # (A) 0.9 k/uL (1.0-4.8); Lymphocytes % (A) 12 %; MCH 26.8 pg (25.0-35.0); MCHC 31.3 g/dL (31.0-37.0); MCV 85.6 fL (80.0-100.0); Mean Platelet Volume 8.4; Monocytes # (A) 0.4 k/uL (0-1.0); Monocytes % (A) 6 %; Neutrophils # (A) 5.9 k/uL (1.3-7.7); Neutrophils % (A) 77 %; Poikilocytosis Moderate; RBC 2.84 m/uL (3.80-5.40); WBC 7.7 k/uL (3.8-10.6); WBC (Perox) 7.88
[2017-07-22 20:37] LABS: Glucose,Whole Blood 221 mg/dL (75-99)
[2017-07-22] MEDS: MONTELUKAST 10 MG TAB PO SCH (21:45)
[2017-07-22 22:28] VITALS: TEMP 96.8
[2017-07-23] MEDS: LEVOTHYROXINE 100 MCG TAB PO SCH (06:45)
[2017-07-23] MEDS: BUDESONIDE 1 MG/2 ML NEBU INHALATION SCH (07:06)
[2017-07-23 07:10] LABS: Glucose,Whole Blood 169 mg/dL (75-99)
[2017-07-23 07:21] VITALS: BP 117/64; PULSE 63; RESP 16
[2017-07-23] MEDS: SERTRALINE 100 MG TAB PO SCH (08:12)
[2017-07-23] MEDS: INSULIN ASPART 100 UNIT/ML 1 ML 10 ML VIAL SQ SCH (08:12)
[2017-07-23] MEDS: PANTOPRAZOLE 40 MG/10 ML VIAL IV SCH (08:14)
[2017-07-23] MEDS: FLUTICASONE 50MCG/SPRAY NASAL 16GM EA NOSTRIL SCH (08:14)
[2017-07-23] MEDS: SODIUM CHLORIDE 0.9% 1,000 ML IV SCH (08:14)
[2017-07-23 08:36] LABS: Basophils % (A) 1 %; CH 27.3; CHCM 31.8; Eosinophils # (A) 0.3 k/uL (0-0.7); Eosinophils % (A) 4 %; HCT 25.2 % (34.0-46.0); HDW 4.08; HGB 7.8 gm/dL (11.4-16.0); Hypochromasia Moderate; Luc # (Auto) 0.16; Luc % (Auto) 2; Lymphocytes # (A) 0.7 k/uL (1.0-4.8); Lymphocytes % (A) 10 %; MCH 26.5 pg (25.0-35.0); MCHC 30.9 g/dL (31.0-37.0); Mean Platelet Volume 7.8; Monocytes # (A) 0.4 k/uL (0-1.0); Monocytes % (A) 5 %; Neutrophils # (A) 5.8 k/uL (1.3-7.7); Neutrophils % (A) 79 %; Poikilocytosis Moderate; RBC 2.93 m/uL (3.80-5.40); RDW 14.8 % (11.5-15.5); WBC 7.4 k/uL (3.8-10.6)
--- NOTE | 2017-07-23 12:32 | P.PN ---
Subjective Progress Note Date: 07/22/17 progress note being dictated for Dr. Lentz Interval history:This is a pleasant 76-year-old female was admitted for upper GI bleed patient has multiple dark stools yesterday and patient still had 2.stools today morning. Patient had upper GI bleed in the past had an upper GI endoscopy earlier this month which showed AV malformation the creatinine him along with some gastritis. Patient was started on Protonix. Gastric body was consulted patient's hemoglobin now is 7.1 received 1 unit of blood transfusion if she has more dark stools today patient will be transfused 1 more unit of blood. Patient denied any lightheadedness fevers chills chest pain Review of Systems REVIEW OF SYSTEMS: CONSTITUTIONAL: No fever, no malaise, no fatigue. HEENT: No recent visual problems or hearing problems. Denied any sore throat. CARDIOVASCULAR: No chest pain, orthopnea, PND, no palpitations, no syncope. PULMONARY: No shortness of breath, no cough, no hemoptysis. GASTROINTESTINAL: As mentioned above patient does have epigastric abdominal pain and some tenderness NEUROLOGICAL: No headaches, no weakness, no numbness. HEMATOLOGICAL: Denies any bleeding or petechiae. GENITOURINARY: Denies any burning micturition, frequency, or urgency. MUSCULOSKELETAL/RHEUMATOLOGICAL: Denies any joint pain, swelling, or any muscle pain. ENDOCRINE: Denies any polyuria or polydipsia. The rest of the 14-point review of systems is negative. 07/19/2017 maintained on PPI, clear liquids. earlier today having multiple green bms, but this afternoon reports black stools. Currently finishing up capsule endoscopy.hemoglobin 8.1.denies dizziness, lightheadedness, or focal deficits. Denies chest pain, palpitations or shortness of breath.denies abdominal pain. 07/22/2017 status post capsule study-abnormal, followed by EGD with small bowel enteroscopy: Reported bleeding AV malformation in the proximal jejunum controlled by using argon plasma coagulation and applying a resolution clip. Diet advanced, tolerated well, denies abdominal pain or cramping. No further blood in stools. Initially had planned for discharge, but in the afternoon had another bloody stool, discharge placed on hold. Hemoglobin this morning 8.7. Objective - Vital Signs Vital signs: Vital Signs Temp 96.8 F L 07/23/17 07:00 Pulse 68 07/23/17 07:14 Resp 16 07/23/17 07:00 BP 117/64 07/23/17 07:00 Pulse Ox 97 07/23/17 07:00 Intake & Output 07/22/17 07/23/17 07/23/17 18:59 06:59 18:59 Output Total 1 Balance -1 Output: Urine/Stool Mix 1 Other: Voiding Method Toilet # Voids 3 1 - Exam GENERAL: Temperature 97, pulse 72, respiratory rate 16, blood pressure 115/56 , O2 sat 97% on room air. The patient is alert and oriented x3, not in any acute distress. Well developed, well nourished. HEENT: Pupils are round and equally reacting to light. EOMI. No scleral icterus. No conjunctival pallor. Normocephalic, atraumatic. No pharyngeal erythema. No thyromegaly. CARDIOVASCULAR: S1 and S2 present. No murmurs, rubs, or gallops. PULMONARY: Chest is clear to auscultation, no wheezing or crackles. ABDOMEN: Soft,no abdominal tenderness, positive bowel sounds,no palpable organomegaly MUSCULOSKELETAL: No joint swelling or deformity. EXTREMITIES: No cyanosis, clubbing, or pedal edema. NEUROLOGICAL: Gross neurological examination did not reveal any focal deficits. SKIN: No rashes. - Labs CBC & Chem 7: 07/23/17 08:14 07/19/17 07:23 Labs: Abnormal Lab Results - Last 24 Hours (Table) 07/22/17 07/22/17 07/22/17 Range/Units 16:53 18:47 20:36 RBC 2.84 L (3.80-5.40) m/uL Hgb 7.6 L (11.4-16.0) gm/dL Hct 24.3 L (34.0-46.0) % MCHC (31.0-37.0) g/dL Lymphocytes # 0.9 L (1.0-4.8) k/uL POC Glucose (mg/dL) 148 H 221 H (75-99) mg/dL 07/23/17 07/23/17 Range/Units 07:08 08:14 RBC 2.93 L (3.80-5.40) m/uL Hgb 7.8 L (11.4-16.0) gm/dL Hct 25.2 L (34.0-46.0) % MCHC 30.9 L (31.0-37.0) g/dL Lymphocytes # 0.7 L (1.0-4.8) k/uL POC Glucose (mg/dL) 169 H (75-99) mg/dL Assessment and Plan Assessment: #1 acute GI bleed;status post capsule study-abnormal, followed by EGD with small bowel enteroscopy: 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 #3 history of atrial flutter in the past patient is presently rate controlled #4 type 2 diabetes mellitus #5 hyperlipidemia #6 hypertension 7 #sleep apnea patient uses CPAP machine at home plan: Continue on current medication regime, monitoring. Repeat CBC now. Hold discharge. Continue monitoring overnight. Discharge planning in progress for tomorrow. The impression and plan of care has been dictated as directed. : I performed a history and examination of this patient, discussed the same with the dictator. I agree with the dictator's note ,documented as a scribe. Any additional findings or plans will be noted.
== END 2017-07-23 11:12 | disposition home or self-care (01) | DRG 299 ==
LOC: EC 18:16 → 4MS4W 21:30
PROVIDERS: ADMIT Hospitalist; ATTEND Hospitalist
PROC: 0W3P8ZZ Control Bleeding in Gastrointestinal Tract, Via Natural or Artificial Opening Endoscopic (ICD-10-PCS; principal; 2017-07-21 10:30)
DX: Q27.33 Arteriovenous malformation of digestive system vessel (principal); K29.71 Gastritis, unspecified, with bleeding; I48.92 Unspecified atrial flutter; D62 Acute posthemorrhagic anemia; I11.0 Hypertensive heart disease with heart failure; I50.9 Heart failure, unspecified; J44.9 Chronic obstructive pulmonary disease, unspecified; I48.91 Unspecified atrial fibrillation; E11.9 Type 2 diabetes mellitus without complications; E03.9 Hypothyroidism, unspecified; E78.00 Pure hypercholesterolemia, unspecified; G47.30 Sleep apnea, unspecified; H91.90 Unspecified hearing loss, unspecified ear; K21.9 Gastro-esophageal reflux disease without esophagitis; Z96.1 Presence of intraocular lens; Z79.51 Long term (current) use of inhaled steroids; Z79.899 Other long term (current) drug therapy; Z80.8 Family history of malignant neoplasm of other organs or systems; Z82.49 Family history of ischemic heart disease and other diseases of the circulatory system; Z85.3 Personal history of malignant neoplasm of breast; Z87.11 Personal history of peptic ulcer disease; Z87.891 Personal history of nicotine dependence; Z92.21 Personal history of antineoplastic chemotherapy; Z92.3 Personal history of irradiation
CPT/HCPCS: 36415; 44369; 44378; 74000; 80048; 80053; 82272; 82550; 82553; 83036; 84439; 84443; 84484; 85025; 85027; 85610; 85730; 86850; 86900; 86901; 86920; 91110; 94640; 96374; 99291

== ENCOUNTER → 2018-04-10 | Outpatient (CLI) | payer MEDICARE ==
--- NOTE | 2018-04-10 11:26 | SFUN ---
SLEEP CENTER FOLLOW UP NOTE DATE OF SERVICE: 04/10/2018 This 77-year-old lady has been followed in sleep center for treatment of obstructive sleep apnea-hypopnea syndrome. The patient successfully continued to use her CPAP equipment without any significant problems related to mask fitting, pressure or humidification. No sleepiness. [place] Sleepiness Scale is 7. I checked patient's CPAP unit. CPAP pressure is 10 cm of water. Leak is 10 L/ minute which is normal range. Apnea-hypopnea index 3.0, which is normal. MEDICATIONS: Cartia XT, iron supplement, levothyroxine, losartan, metformin, montelukast, Nitrostat, omeprazole, oxybutynin, pioglitazone, sertraline, vitamin B12 in tablets. PHYSICAL EXAMINATION: During physical exam, patient in no distress. VITAL SIGNS: BP 137/55, HR 64, RR 16, height 5 feet 3-3/4 inches, weight 224.6, BMI 38.8. Weight is 4 pounds more than during the previous visit. HEENT: PERRLA, EOMI. Oropharynx low position of soft palate. NECK: Supple, no JVD. Thyroid is not palpable. LUNGS: Clear to percussion and to auscultation. Good air exchange. No wheezing or rhonchi. HEART: S1, S2 regular. No murmurs, gallops, or rubs. ABDOMEN: Obese. EXTREMITIES: No clubbing or cyanosis. DRAW FRAME TENDER: Awake, alert, and oriented X3. Cranial nerves 2 to 7 intact. There is no fasciculation or atrophy. noted. No focal deficits observed. IMPRESSION: 1. Obstructive sleep apnea-hypopnea syndrome on full control with CPAP at 10 cm of water. Patient demonstrated good compliance, benefitting from treatment. 2. Obesity. 3. Hypertension. 4. Status post recent treatment for skin carcinoma of the face with cream. 5. Acid reflux. 6. History of gastrointestinal bleed in the past. 7. Diabetes mellitus. 8. History of asthma. 9. Allergy. 10.History of cardiac arrhythmia. 11.Status post cataract surgery. 12.Status post partial hysterectomy. 13.Status post right knee surgery. PLAN: 1. Patient will continue to use her CPAP equipment every night for the whole night. 2. Losing weight. 3. Sleep hygiene with regular time in bed for at least 75 hours. 4. No driving if feeling sleepiness. 5. Prescription for all necessary CPAP supplies including mask, tube, filters. 6. Followup visit in 1 year or earlier if patient has any problems related to CPAP therapy and sleep. Thank you very much for allowing me to participate in management of your patient Sincerely, Eduardo Duong MD, PhD, FAASM Diplomat of [place] [employer] [place] [employer] Eating Disorder Psychologist of [facility] [place] MMODL / BRAULION: [id number] / ESA
== END | disposition home or self-care (01) ==
LOC: SLEEP 09:58
PROVIDERS: ATTEND Internal Medicine
DX: G47.33 Obstructive sleep apnea (adult) (pediatric) (principal); I10 Essential (primary) hypertension; K21.9 Gastro-esophageal reflux disease without esophagitis; E11.9 Type 2 diabetes mellitus without complications; T78.40XA Allergy, unspecified, initial encounter; E66.9 Obesity, unspecified; Z68.38 Body mass index [BMI] 38.0-38.9, adult; J45.909 Unspecified asthma, uncomplicated; Z90.710 Acquired absence of both cervix and uterus; Z99.89 Dependence on other enabling machines and devices; Z98.49 Cataract extraction status, unspecified eye; Z87.19 Personal history of other diseases of the digestive system; Z79.899 Other long term (current) drug therapy; Z79.84 Long term (current) use of oral hypoglycemic drugs; Z98.890 Other specified postprocedural states; Z86.79 Personal history of other diseases of the circulatory system

== ENCOUNTER → 2019-04-23 | Outpatient (CLI) | payer MEDICARE ==
--- NOTE | 2019-04-23 16:46 | PN ---
PROGRESS NOTE DATE OF SERVICE: 04/23/2019 This patient is a 78-year-old lady who has been followed in Sleep Center for treatment of obstructive sleep apnea-hypopnea syndrome. The patient successfully continues to use her CPAP equipment every night for the whole night and is getting her supplies on time. No snoring with the machine. She sleeps well. [place] Sleepiness Scale today is 12. The patient feels rested but still sometimes takes naps during the day. I checked her CPAP unit. CPAP pressure is 10 cm of water. Usage is 29/30 nights for the last month; for more than 4 hours 26/30 nights and average usage 6.3 hours per night. Leak is 14 L/minute, which is within normal range. Apnea-hypopnea index is 3.3, which is also normal. MEDICATIONS: 1. Cardia XT. 2. Iron supplement. 3. Levothyroxine. 4. Losartan. 5. Metformin. 6. Nitrostat. 7. Montelukast. 8. Omeprazole. 9. Oxybutynin. 10.Pioglitazone. 11.Sertraline. 12.Vitamin B12 in tablets. PHYSICAL EXAMINATION: GENERAL: A pleasant patient in no distress. VITAL SIGNS: BP 127/60, HR 64, RR 18. Height 5 feet 4 inches, weight 221.4 pounds, which is 3 pounds less than one year ago, temperature 96.8, oxygen saturation at room air 97%. HEENT: PERRLA, EOMI. Evaluation of oropharynx showed tongue protrudes midline. Extremely low position of soft palate. Mallampati IV. NECK: Supple. No JVD. Thyroid is not palpable. LUNGS: Clear to percussion and to auscultation. Good air exchange. No wheezing or rhonchi. HEART: S1, S2 regular. No murmurs, gallops or rubs. ABDOMEN: Soft. No tenderness. EXTREMITIES: No clubbing or cyanosis. TOOLROOM MACHINIST: Awake, alert, and oriented X3. Cranial nerves 2 to 7 intact. There is no fasciculation or atrophy. noted. No focal deficits observed. IMPRESSION: 1. Obstructive sleep apnea-hypopnea syndrome. Patient demonstrated great compliance with treatment, benefitting from treatment. 2. Hypertension. 3. Obesity. 4. Acid reflux. 5. History of treatment of skin carcinoma of the face with cream. 6. Diabetes mellitus. 7. History of gastrointestinal bleed in the past. 8. History of asthma. 9. Allergies. 10.History of cardiac arrhythmia. 11.Status post cataract surgery. 12.Status post partial hysterectomy. 13.Status post right knee surgery. PLAN: 1. Patient will continue to use CPAP equipment every night for the whole night. 2. Watching and losing weight. 3. Sleep hygiene with regular time in bed for at least 7-1/2 to 8 hours. 4. No driving if feeling any sleepiness. 5. I will maintain all necessary prescriptions for CPAP supplies, including mask, tube, filters. Thank you very much for allowing me to participate in the management of your patient. Sincerely, Eduardo Duong MD, PhD, FAASM Diplomat of [place] [employer] [place] [employer] Transcription of [facility] [place] SUBHASH / BRAULION: [id number] /
== END | disposition home or self-care (01) ==
LOC: SLEEP 14:21
PROVIDERS: ATTEND Internal Medicine
DX: G47.33 Obstructive sleep apnea (adult) (pediatric) (principal); I10 Essential (primary) hypertension; E66.9 Obesity, unspecified; K21.9 Gastro-esophageal reflux disease without esophagitis; E11.9 Type 2 diabetes mellitus without complications; T78.40XA Allergy, unspecified, initial encounter; Z68.38 Body mass index [BMI] 38.0-38.9, adult; Z85.828 Personal history of other malignant neoplasm of skin; Z87.19 Personal history of other diseases of the digestive system; Z87.09 Personal history of other diseases of the respiratory system; Z86.79 Personal history of other diseases of the circulatory system; Z98.49 Cataract extraction status, unspecified eye; Z90.711 Acquired absence of uterus with remaining cervical stump; Z99.89 Dependence on other enabling machines and devices; Z98.890 Other specified postprocedural states; Z79.84 Long term (current) use of oral hypoglycemic drugs; Z79.899 Other long term (current) drug therapy

== ENCOUNTER → 2019-08-17 | Outpatient (CLI) | payer MEDICARE ==
--- NOTE | 2019-08-17 14:56 | MM ---
Reason for exam: additional evaluation requested from prior study. Last mammogram was performed 1 year ago. History: Patient is postmenopausal and has history of breast cancer at age 48. Physical Findings: Nurse did not find any significant physical abnormalities on exam. MG Diagnostic Mammo w CAD JOSELINE Bilateral CC and MLO view(s) were taken. Prior study comparison: August 14, 2018, mammogram. August 12, 2017, mammogram. August 10, 2016, mammogram. The breast tissue is heterogeneously dense. This may lower the sensitivity of mammography. Post therapy change on the left. More focal skin thickening at the incision site. Precautionary targeted ultrasound. These results were verbally communicated with the patient and result sheet given to the patient on 08/17/19. ASSESSMENT: Incomplete: need additional imaging evaluation, BI-RAD 0 RECOMMENDATION: Ultrasound of the left breast.
--- NOTE | 2019-08-17 14:57 | USB ---
Reason for exam: additional evaluation requested from abnormal screening. History: Patient is postmenopausal and has history of breast cancer at age 48. US Breast Limited LT Left limited breast ultrasound including focal area of concern, retroareolar and axilla demonstrates a hypoechoic scar area at 2 o'clock and ductal ectasia at the posterior nipple. These results were verbally communicated with the patient and result sheet given to the patient on 08/17/19. ASSESSMENT: Benign, BI-RAD 2 RECOMMENDATION: Follow-up diagnostic mammogram of both breasts in 1 year.
== END | disposition home or self-care (01) ==
LOC: RADMAMWWP 12:48
PROVIDERS: ATTEND Internal Medicine Hematology & Oncology
DX: Z08 Encounter for follow-up examination after completed treatment for malignant neoplasm (principal); Z85.3 Personal history of malignant neoplasm of breast
CPT/HCPCS: 77066

== ENCOUNTER → 2020-04-07 | Outpatient (CLI) | payer MEDICARE ==
--- NOTE | 2020-04-07 13:26 | SFUN ---
SLEEP CENTER FOLLOW UP NOTE DATE OF SERVICE: A 79-year-old lady has been followed in the Sleep Center for treatment of obstructive sleep apnea-hypopnea syndrome. The patient successfully continues to use her CPAP equipment every night, sleep well, getting her supplies for the machine on time. Her [place] Sleepiness Scale although increased to 16 today. I checked her CPAP unit. Usage is 30/30 nights and 24/30 nights more than 4 hours with average usage 5.4 hours. CPAP pressure 10 cm of water. Leak is 18 L/minute. Apnea- hypopnea index in normal range 2.7. MEDICATIONS: Levothyroxine, losartan, sertraline, p.o. glitazone, diltiazem, omeprazole, metformin, Aricept. PHYSICAL EXAM: Patient in no distress, BP 122/53, HR 62, RR 16, height 5, 3-1/2, weight 218 pounds which is 3 pounds less than during previous visit, temperature 97.7, oxygen saturation at room air 95%. Oropharynx extremely low position of soft palate. Mallampati 4. ABDOMEN: Obese. NECK: Supple, no JVD. Thyroid is not palpable. LUNGS: Clear to percussion and to auscultation. Good air exchange. No wheezing or rhonchi. HEART: S1, S2 regular. No murmurs, gallops, or rubs. EXTREMITIES: No clubbing or cyanosis. HEAD KNITTING MACHINE FIXER: Awake, alert, and oriented X3. Cranial nerves 2 to 7 intact. There is no fasciculation or atrophy. noted. No focal deficits observed. IMPRESSION: 1. Obstructive sleep apnea-hypopnea syndrome. Patient demonstrated great compliance with treatment benefitting from treatment. 2. Hypertension. 3. Acid reflux. 4. Diabetes mellitus. 5. Hyperlipidemia. 6. Obesity. 7. History of asthma. 8. Status post treatment of a skin carcinoma of the face. 9. History of GI bleed in the past. 10.History of cardiac arrhythmia. 11.Status post cataract surgery. 12.Status post partial hysterectomy. 13.Status post right knee surgery. PLAN: 1. Patient will continue to use PAP equipment every night for the whole night. 2. Sleep hygiene with regular time in bed for at least 7-1/2 to 8 hours. 3. Precautions related to driving. No driving if feeling sleepiness. 4. I will maintain all necessary prescription for PAP supplies including mask, tube, filters. 5. Watching weight. 6. No driving if feeling sleepiness. 7. Follow-up visit in 6 months or earlier if patient has any problems. Thank you very much for allowing me to participate in the management of your patient. Sincerely, Eduardo Duong MD, PhD, FAASM Diplomat of [place] [employer] [place] [employer] Director Regulatory Agency of [facility] [place] MMODL / BRAULION: [id number] /
== END | disposition home or self-care (01) ==
LOC: SLEEP 10:08
PROVIDERS: ATTEND Internal Medicine
DX: G47.33 Obstructive sleep apnea (adult) (pediatric) (principal); I10 Essential (primary) hypertension; K21.9 Gastro-esophageal reflux disease without esophagitis; E11.9 Type 2 diabetes mellitus without complications; E78.5 Hyperlipidemia, unspecified; E66.9 Obesity, unspecified; Z99.89 Dependence on other enabling machines and devices; Z87.09 Personal history of other diseases of the respiratory system; Z90.710 Acquired absence of both cervix and uterus; Z98.890 Other specified postprocedural states; Z98.49 Cataract extraction status, unspecified eye

== ENCOUNTER → 2020-06-29 | Outpatient (CLI) | payer MEDICARE ==
--- NOTE | 2020-07-06 13:30 | P.ARTDOP ---
Arterial Doppler LOWER EXTREMITY ARTERIAL DOPPLER: DATE OF SERVICE: 06/29/2020 Reason for study: Bilateral knee pain. Doppler waveforms: Multiphasic bilaterally throughout. Pulse volume recording: []. Pressure gradients: None. Ankle-brachial indices: Greater than 1 bilaterally. Toe brachial indices: 0.59 on the right, 0.59 on the left Impression: Normal study.
== END | disposition home or self-care (01) ==
LOC: RADUSWWP 10:26
PROVIDERS: ATTEND Family Medicine
DX: R93.89 Abnormal findings on diagnostic imaging of other specified body structures (principal)
CPT/HCPCS: 93922

== ENCOUNTER → 2020-08-18 | Outpatient (CLI) | payer MEDICARE ==
--- NOTE | 2020-08-19 08:15 | MM ---
Reason for exam: additional evaluation requested from prior study. Last mammogram was performed 1 year ago. History: Patient is postmenopausal and has history of breast cancer at age 48. Lumpectomy of the right breast, 1988. Chemotherapy, 1988. Radiation therapy, 1988. Physical Findings: Nurse did not find any significant physical abnormalities on exam. MG 3D Diag Mammo W/Cad JOSELINE Bilateral CC and MLO view(s) were taken. Prior study comparison: August 17, 2019, bilateral MG diagnostic mammo w CAD JOSELINE. August 14, 2018, mammogram. The breast tissue is heterogeneously dense. This may lower the sensitivity of mammography. Finding #1: Architectural distortion in the left breast consistent with known treatment changes. Finding #2: There are typically benign round calcifications in both breasts. There is no discrete abnormality. These results were verbally communicated with the patient and result sheet given to the patient on 08/18/20. ASSESSMENT: Benign, BI-RAD 2 RECOMMENDATION: Routine screening mammogram of both breasts in 1 year.
== END | disposition home or self-care (01) ==
LOC: RADMAMWWP 10:59
PROVIDERS: ATTEND Internal Medicine Hematology & Oncology
DX: Z08 Encounter for follow-up examination after completed treatment for malignant neoplasm (principal); Z85.3 Personal history of malignant neoplasm of breast
CPT/HCPCS: 77066; G0279; 77062

== ENCOUNTER → 2020-10-13 | Outpatient (CLI) | payer MEDICARE ==
--- NOTE | 2020-10-13 20:32 | SFUN ---
SLEEP CENTER FOLLOW UP NOTE DATE OF SERVICE: 10/13/2020 This 80-year-old lady has been followed in Sleep Center for treatment of obstructive sleep apnea-hypopnea syndrome. Patient continues to use her CPAP equipment every night for the whole night. Some nights after going to the bathroom at night she does not put her mask back on. [place] Sleepiness Scale is 8, which is normal. I checked her CPAP unit. CPAP pressure is 10 cm of water. The patient is using it 100% of nights, but average usage is only 3.1 hours per night, and for more than 4 hours on 03/01 nights. Leak is 64 L/minute, which is high, but apnea-hypopnea index is absolutely perfect; only 1.8. MEDICATIONS: Levothyroxine, losartan, sertraline, pioglitazone, diltiazem, omeprazole, metformin, Aricept. PHYSICAL EXAMINATION: GENERAL: A pleasant patient in no distress. VITAL SIGNS: BP 134/58, HR 69, RR 15, height 5 feet 4 inches, weight 215.8, temperature 98.1. Oxygen saturation at room air 95%. HEENT: PERRLA, EOMI. Evaluation of oropharynx showed tongue protrudes midline. Extremely low position of soft palate. Mallampati IV. NECK: Supple. No JVD. Thyroid is not palpable. LUNGS: Clear to percussion and to auscultation. Good air exchange. No wheezing or rhonchi. HEART: S1, S2 regular. No murmurs, gallops or rubs. ABDOMEN: Obese. EXTREMITIES: No clubbing or cyanosis. WELDING MACHINE OPERATOR ULTRASONIC: Awake, alert, and oriented X3. Cranial nerves 2 to 7 intact. There is no fasciculation or atrophy. noted. No focal deficits observed. IMPRESSION: 1. Obstructive sleep apnea-hypopnea syndrome; normal respiration on CPAP, benefitting from treatment. 2. Hypertension. 3. Acid reflux. 4. Diabetes mellitus. 5. Hyperlipidemia. 6. Obesity. 7. History of asthma. 8. Status post treatment of skin carcinoma of the face. 9. History of GI bleed in the past. 10.History of cardiac arrhythmia. 11.Status post cataract surgery. 12.Status post partial hysterectomy. 13.Status post right knee surgery. PLAN: 1. The patient should not take her mask off after going to the bathroom at night. I explained to her that she should just disconnect the tube and put this connection back, which is easier than to adjust the mask a second time. 2. Patient will continue to use PAP equipment every night for the whole night. 3. Sleep hygiene with regular time in bed for at least 7-1/2 to 8 hours. 4. Precautions related to driving. No driving if feeling sleepiness. 5. I will maintain all necessary prescription for PAP supplies including mask, tube, filters. 6. Watching weight. 7. Follow-up visit in 6 months or earlier if patient has any problems. Thank you very much for allowing me to participate in the management of your patient. Sincerely, Eduardo Duong MD, PhD, FAASM Diplomat of [place] [employer] [place] [employer] Pricer of [facility] [place] MMODL / BRAULION: [id number] /
== END | disposition home or self-care (01) ==
LOC: SLEEP 11:28
PROVIDERS: ATTEND Internal Medicine
DX: G47.33 Obstructive sleep apnea (adult) (pediatric) (principal); I10 Essential (primary) hypertension; K21.9 Gastro-esophageal reflux disease without esophagitis; E11.9 Type 2 diabetes mellitus without complications; E78.5 Hyperlipidemia, unspecified; E66.9 Obesity, unspecified; Z99.89 Dependence on other enabling machines and devices; Z79.890 Hormone replacement therapy; Z79.899 Other long term (current) drug therapy; Z79.84 Long term (current) use of oral hypoglycemic drugs; Z87.09 Personal history of other diseases of the respiratory system; Z85.828 Personal history of other malignant neoplasm of skin; Z86.79 Personal history of other diseases of the circulatory system; Z90.710 Acquired absence of both cervix and uterus; Z87.19 Personal history of other diseases of the digestive system; Z98.890 Other specified postprocedural states; Z98.49 Cataract extraction status, unspecified eye

== ENCOUNTER → 2021-04-06 | Outpatient (CLI) | payer MEDICARE ==
[2021-04-07 01:13] LABS: Basophils # (A) 0.05 X 10*3/uL (0.00-0.10); Basophils % (A) 0.6 %; Eosinophils # (A) 0.26 X 10*3/uL (0.04-0.35); Eosinophils % (A) 3.3 %; HCT 34.2 % (37.2-46.3); HGB 10.5 g/dL (12.0-15.0); Lymphocytes % (A) 15.1 %; MCH 28.5 pg (27.0-32.0); MCHC 30.7 g/dL (32.0-37.0); MCV 92.7 fL (80.0-97.0); Mean Platelet Volume 11.7 fL (9.5-12.2); Monocytes # (A) 0.59 X 10*3/uL (0.20-1.00); Monocytes % (A) 7.4 %; Neutrophils # (A) 5.82 X 10*3/uL (1.80-7.70); Neutrophils % (A) 73.2 %; Platelet Count 175 X 10*3/uL (140-440); RBC 3.69 X 10*6/uL (4.10-5.20); RDW 13.3 % (11.5-14.5); WBC 7.95 X 10*3/uL (4.50-10.00)
[2021-04-07 04:40] LABS: Hemoglobin A1C 6.2 % (4.0-6.0)
[2021-04-07 06:10] LABS: Albumin 4.4 g/dL (3.80-4.90); Albumin/Globulin Ratio 2.1 (1.60-3.17); Anion Gap 11.9 mmol/L (4.00-12.00); Calcium 9.4 mg/dL (8.7-10.3); Carbon Dioxide 21.1 mmol/L (21.6-31.8); Globulin 2.1 g/dL (1.6-3.3); Non-African American GFR(CKD) 61.2 (60.0-200.0); Potassium 4.6 mmol/L (3.5-5.5); Total Bilirubin 0.4 mg/dL (0.3-1.2); Total Protein 6.5 g/dL (6.2-8.2)
== END | disposition home or self-care (01) ==
LOC: LABWHC1 14:34
PROVIDERS: ATTEND Family Medicine
DX: E11.8 Type 2 diabetes mellitus with unspecified complications (principal); R10.11 Right upper quadrant pain
CPT/HCPCS: 36415; 80053; 83036; 85025

== ENCOUNTER → 2021-04-13 | Outpatient (CLI) | payer MEDICARE ==
--- NOTE | 2021-04-14 07:46 | SFUN ---
SLEEP CENTER FOLLOW UP NOTE DATE OF SERVICE: 04/13/2021 80-year-old lady has been followed in Sleep Center for treatment of obstructive sleep apnea-hypopnea syndrome. The patient continues to use her CPAP equipment every night for the whole night. She does not remember when she changed her or mask. Her [place] Sleepiness Scale increased to 14. I checked her CPAP unit. Pressure is 10 cm of water. Usage is 30/30 nights and 21/30 nights for more than 4 hours. Leak is high 73 L/minute. Apnea-hypopnea index is 4.9. The patient using a Simplus fullface mask which looks old. MEDICATIONS: Metformin 1000 mg twice a day, diltiazem 120 mg once a day, sertraline 100 mg twice a day, omeprazole 40 mg once a day, Pioglitazone 30 mg once a day. Aricept 5 mg once a day, losartan 50 mg 1 and half tablet once a day, levothyroxine 200 mcg once a day, vitamin D3, iron supplement, vitamin B12 supplement, Nitrostat 0.4 mg as needed. PHYSICAL EXAMINATION: GENERAL: lady without distress BP 122/57 HR 62, RR 15, height 5 feet 4, weight 215, BMI 36.7, temperature 98 oxygen saturation at room air 94%. Oropharynx extremely low position of soft palate, Mallampati IV. NECK: Supple, no JVD. Thyroid is not palpable. LUNGS: Clear to percussion and to auscultation. Good air exchange. No wheezing or rhonchi. HEART: S1, S2 regular. No murmurs, gallops, or rubs. ABDOMEN: Obese. Soft and nontender. Bowel sounds are present. No organomegaly appreciated. EXTREMITIES: No clubbing or cyanosis. ELECTROMAGNET CRANE OPERATOR: Awake, alert, and oriented X3. Cranial nerves 2 to 7 intact. There is no fasciculation or atrophy. noted. No focal deficits observed. IMPRESSION: 1. Obstructive sleep apnea-hypopnea syndrome. Patient demonstrated good compliance with treatment benefitting from treatment. High leak from the mask. 2. Hypertension. 3. Acid reflux. 4. Diabetes mellitus. 5. Hyperlipidemia. 6. Obesity. 7. History of asthma. 8. Status post treatment of skin carcinoma of the face. 9. History of GI bleed in the past. 10.History of cardiac arrhythmia. 11.Status post cataract surgery. 12.Status post partial hysterectomy. 13.Status post right knee surgery. PLAN: 1. To replace mask as soon as possible. 2. Patient will continue to use PAP equipment every night for the whole night. 3. Sleep hygiene with regular time in bed for at least 7-1/2 to 8 hours. 4. Precautions related to driving. No driving if feeling sleepiness. 5. I will maintain all necessary prescription for PAP supplies including mask, tube, filters. 6. Watching weight. 7. Follow-up visit in 6 months or earlier if patient has any problems. Thank you very much for allowing me to participate in the management of your patient. Sincerely, Eduardo Duong MD, PhD, FAASM Diplomat of [employer] Sleep Medicine Board of [employer] Supervisor [facility] [facility] [place] MMODL / BRAULION: [id number] /
== END ==
LOC: SLEEP 11:37
PROVIDERS: ATTEND Internal Medicine
DX: G47.33 Obstructive sleep apnea (adult) (pediatric) (principal); I10 Essential (primary) hypertension; K21.9 Gastro-esophageal reflux disease without esophagitis; E11.9 Type 2 diabetes mellitus without complications; E78.5 Hyperlipidemia, unspecified; E66.9 Obesity, unspecified; J45.909 Unspecified asthma, uncomplicated; Z98.890 Other specified postprocedural states; Z86.79 Personal history of other diseases of the circulatory system; Z90.711 Acquired absence of uterus with remaining cervical stump; Z98.49 Cataract extraction status, unspecified eye; Z79.84 Long term (current) use of oral hypoglycemic drugs; Z79.899 Other long term (current) drug therapy; Z68.36 Body mass index [BMI] 36.0-36.9, adult; Z99.89 Dependence on other enabling machines and devices

== ENCOUNTER → 2021-05-02 | Outpatient (CLI) | payer MEDICARE ==
--- NOTE | 2021-05-02 13:34 | US ---
EXAMINATION TYPE: US abdomen complete DATE OF EXAM: 05/02/2021 COMPARISON: CT CLINICAL HISTORY: R10.11 Right upper quadrant pain. RUQ pain. Hx cholecystectomy. EXAM MEASUREMENTS: Liver Length: 16.1 cm. This is mildly enlarged. Normal 15.5 cm CBD: 0.64 Spleen: 11.0 cm. Right Kidney: 10.2 x 4.5 x 4.2 cm. Left Kidney: 9.4 x 5.5 x 4.6 cm. Limited due to gas and patient body habitus. Pancreas: Tail obscured by bowel gas. Duct measures 2.5 mm at pancreatic body. Liver: Appears to be coarse in echotexture. Gallbladder: Removed. Evidence for sonographic Park's sign: No. CBD: Appears wnl post-cholecystectomy. Spleen: Appears to be wnl. Right Kidney: Complex area seen laterally: 1.7 x 2.1 x 2.0 cm. Left Kidney: Renal pelvis appears to be slightly dilated-anechoic appearance medially. Upper IVC: Appears to be wnl. Abd Aorta: Appears to be wnl. IMPRESSION: 1. Complex cyst inferior pole right kidney. 2. Minimal prominence of the left renal pelvis
== END | disposition home or self-care (01) ==
LOC: RADUSWWP 09:41
PROVIDERS: ATTEND Family Medicine
DX: N28.1 Cyst of kidney, acquired (principal); Z90.49 Acquired absence of other specified parts of digestive tract
CPT/HCPCS: 76700

== ENCOUNTER → 2021-06-02 | Outpatient (CLI) | payer MEDICARE ==
[2021-06-02 22:37] LABS: Basophils # (A) 0.03 X 10*3/uL (0.00-0.10); Basophils % (A) 0.4 %; Eosinophils # (A) 0.18 X 10*3/uL (0.04-0.35); Eosinophils % (A) 2.5 %; HCT 37.6 % (37.2-46.3); HGB 11.4 g/dL (12.0-15.0); Lymphocytes # (A) 1.17 X 10*3/uL (0.90-5.00); Lymphocytes % (A) 16.5 %; MCH 28.3 pg (27.0-32.0); MCHC 30.3 g/dL (32.0-37.0); MCV 93.3 fL (80.0-97.0); Mean Platelet Volume 11.6 fL (9.5-12.2); Monocytes # (A) 0.57 X 10*3/uL (0.20-1.00); Neutrophils # (A) 5.13 X 10*3/uL (1.80-7.70); Neutrophils % (A) 72.3 %; Platelet Count 172 X 10*3/uL (140-440); RBC 4.03 X 10*6/uL (4.10-5.20); RDW 13.2 % (11.5-14.5)
== END | disposition home or self-care (01) ==
LOC: LABWHC1 14:40
PROVIDERS: ATTEND Family Medicine
DX: D64.9 Anemia, unspecified (principal)
CPT/HCPCS: 36415; 85025

== ENCOUNTER → 2021-07-06 | Outpatient (CLI) | payer MEDICARE ==
--- NOTE | 2021-07-06 20:32 | CT ---
EXAMINATION TYPE: CT abdomen wo/w con DATE OF EXAM: 07/06/2021 COMPARISON: 12/06/2015, ultrasound 05/02/2021 HISTORY: Renal cyst. CT DLP: 1661.9 mGycm Automated exposure control for dose reduction was used. TECHNIQUE: Helical acquisition of images was performed from the lung bases through the top of iliac crest to include entire abdomen. CONTRAST: Performed with Oral Contrast and without and with IV Contrast, patient injected with 80 mL of Isovue M300. FINDINGS: LUNG BASES: Emphysematous changes are noted involving the lung bases. LIVER/GB: Postcholecystectomy changes noted. PANCREAS: No significant abnormality is seen. SPLEEN: No significant abnormality is seen. ADRENALS: No significant abnormality is seen. KIDNEYS: No hydronephrosis or nephrolithiasis. Tiny hypodensity within the left kidney measures 5 mm and too s mall to characterize. Similar density along the upper pole posterior margin right kidney. The sonogra phic findings demonstrates a lower poles lesion measuring 1.6 cm with a single area of septation. Minda sures 5 Hounsfield units on precontrast and 8 Hounsfield units on postcontrast compatible with a Bosn iak 2 cyst. BOWEL: No significant abnormality is seen. LYMPH NODES: No significant abnormality is seen. OSSEOUS STRUCTURES: Hypertrophic and degenerative changes of the spine. FREE AIR: No free air is visualized. OTHER: Atherosclerotic change aorta with no evidence of aneurysm. IMPRESSION: 1. There is a 1.6 cm right lower pole renal cyst lesion compatible with a Bosniak 2 benign renal cyst .
== END | disposition home or self-care (01) ==
LOC: RADCTMAIN 15:36
PROVIDERS: ATTEND Urology
DX: N28.1 Cyst of kidney, acquired (principal)
CPT/HCPCS: 82565; 84520; 74170; 36415; Q9967 ×2

== ENCOUNTER → 2021-08-21 | Outpatient (CLI) | payer MEDICARE ==
--- NOTE | 2021-08-21 12:08 | MM ---
Reason for exam: screening (asymptomatic). Last mammogram was performed 1 year ago. History: Patient is postmenopausal and has history of breast cancer at age 48. Lumpectomy of the right breast, 1988. Chemotherapy, 1988. Radiation therapy, 1988. Physical Findings: A clinical breast exam by your physician is recommended on an annual basis and results should be correlated with mammographic findings. MG 3D Screening Mammo W/Cad Bilateral CC and MLO view(s) were taken. Prior study comparison: August 18, 2020, bilateral MG 3d diag mammo w/cad JOSELINE. August 17, 2019, bilateral MG diagnostic mammo w CAD JOSELINE. The breast tissue is heterogeneously dense. This may lower the sensitivity of mammography. Finding #1: There is increased size and skin thickening with architectural distortion and clips in the upper outer quadrant, posterior position of the left breast. Finding #2: There are typically benign round calcifications in both breasts. 6mm oval obscured density posterior outer aspect on CC 12/50. ASSESSMENT: Incomplete: need additional imaging evaluation, BI-RAD 0 RECOMMENDATION: Special view mammogram and ultrasound of the right breast. [facility] will attempt to contact patient to return for supplemental views and ultrasound.
== END | disposition home or self-care (01) ==
LOC: RADMAMWWP 10:28
PROVIDERS: ATTEND Internal Medicine Hematology & Oncology
DX: Z12.31 Encounter for screening mammogram for malignant neoplasm of breast (principal); Z78.0 Asymptomatic menopausal state; Z85.3 Personal history of malignant neoplasm of breast; Z92.21 Personal history of antineoplastic chemotherapy; Z92.3 Personal history of irradiation
CPT/HCPCS: 77063; 77067

== ENCOUNTER → 2021-10-24 | Outpatient (CLI) | payer MEDICARE ==
--- NOTE | 2021-10-25 10:15 | MM ---
Reason for exam: additional evaluation requested from abnormal screening. Last mammogram was performed 2 months ago. History: Patient is postmenopausal and has history of breast cancer at age 48. Lumpectomy of the left breast, 1988. Chemotherapy, 1988. Radiation therapy, 1988. Physical Findings: Nurse Summary: multiple nodules in the right breast upper outer quadrant and axillary tail (nurse db). MG 3D Work Up W/Cad RT LM and spot compression MLO view(s) were taken of the right breast. Prior study comparison: August 21, 2021, bilateral MG 3d screening mammo w/cad. August 18, 2020, bilateral MG 3d diag mammo w/cad JOSELINE. There are scattered fibroglandular densities. Post surgical and post therapy change left breast. Palpable marker and pain right upper outer quadrant. The abnormality on screening most suggestive of an intrammary lymph node. These results were verbally communicated with the patient and result sheet given to the patient on 10/24/21. ASSESSMENT: Incomplete: need additional imaging evaluation, BI-RAD 0 RECOMMENDATION: Ultrasound of the right breast.
--- NOTE | 2021-10-25 10:17 | USB ---
Reason for exam: additional evaluation requested from abnormal screening. History: Patient is postmenopausal and has history of breast cancer at age 48. Lumpectomy of the left breast, 1988. Chemotherapy, 1988. Radiation therapy, 1988. US Breast Limited RT Right limited breast ultrasound including focal area of concern, retroareolar and axilla demonstrates no cystic or solid lesion seen. Scanned 9-12 o'clock. These results were verbally communicated with the patient and result sheet given to the patient on 10/24/21. ASSESSMENT: Probably benign, BI-RAD 3 RECOMMENDATION: Follow-up diagnostic mammogram of the right breast in 6 months. Manage on a clinical basis with regard to right breast and axillary pain.
== END | disposition home or self-care (01) ==
LOC: RADUSWWP 14:57
PROVIDERS: ATTEND Internal Medicine Hematology & Oncology
DX: R92.8 Other abnormal and inconclusive findings on diagnostic imaging of breast (principal); Z78.0 Asymptomatic menopausal state; Z85.3 Personal history of malignant neoplasm of breast
CPT/HCPCS: 77065; 76642; G0279; 77061